=== PATIENT | female | born 1940 | race Caucasian/White ===

== ENCOUNTER 2016-11-18 00:05 | Inpatient (IN) ==
--- NOTE | 2016-11-18 00:23 | Emergency Department Note ---
Disposition Clinical Impression: Atrial fibrillation with RVR Disposition: Admitted As Inpatient Condition: Good Time of Disposition: 04:32 General Adult HPI - General Chief complaint: ED Chest Pain Stated complaint: CP, AFIB RVR Time Seen by Provider: 11/18/16 00:14 Source: patient, EMS Limitations: no limitations Nursing Notes Reviewed: Yes Vital Signs Reviewed: Yes - History of Present Illness HPI Narrative: Female patient states she had jaw pain and noticed her heart was out of rhythm around 11:00 tonight. This is happened her one other time. She denies chest pain at this time. States she did have a short episode of this when she noticed her heart was out of rhythm. She states this happened in September. Pain Scale: 0 - Related Data Home Medications Medication Instructions Recorded Confirmed Albuterol Neb [Proventil Neb] 2.5 mg IH Q4H PRN 08/05/16 10/10/16 Albuterol Sulfate [Proair Hfa] 2 puff IH Q4H PRN 08/05/16 10/10/16 Beclomethasone Diprop 80mcg [QVAR 1 puff IH BID 08/05/16 10/10/16 80 mcg] Benzonatate [Tessalon] 100 mg PO TID PRN 08/05/16 10/10/16 Fluticasone Propionate Nasal 50 mcg NS DAILY PRN 08/05/16 10/10/16 [Flonase] Furosemide [Lasix] 40 mg PO DAILY 08/05/16 10/10/16 Lisinopril [Zestril] 10 mg PO DAILY 08/05/16 10/10/16 Loratadine [Claritin] 10 mg PO DAILY 08/05/16 10/10/16 Metoprolol [Lopressor] 12.5 mg PO BID 08/05/16 10/10/16 Oxygen 2 l NS AD 08/05/16 10/10/16 Potassium Chloride [K-Tab ER] 10 meq PO DAILY 08/05/16 10/10/16 Tiotropium [place] [Spiriva 2 puff IH DAILY 08/05/16 10/10/16 Respimat] Aspirin 81 mg PO DAILY 10/10/16 10/10/16 Warfarin [Coumadin] 2.5 mg PO TU 10/10/16 10/10/16 Warfarin [Coumadin] 5 mg PO SUMOWETHFRSA 10/10/16 10/10/16 Allergies Allergy/AdvReac Type Severity Reaction Status Date / Time Cefaclor [From [facility]] Allergy Difficulty Verified 10/10/16 09:47 Breathing cephalexin Allergy Difficulty Verified 10/10/16 09:47 Breathing doxycycline Allergy Anaphylaxis Verified 10/10/16 09:47 Penicillins Allergy Hives Verified 10/10/16 09:47 Sulfa (Sulfonamide Allergy Anaphylaxis Verified 10/10/16 09:47 Antibiotics) Review of Systems: Patient denies any fevers or chills. She denies any recent illnesses. She denies any shortness of breath or chest pain at this time. She does report feeling that her heart is out of rhythm. She denies any jaw pain at this time but she states she did have a funny feeling in her jaw when this began. She denies any syncope or headaches. Has any abdominal pain. She denies any nausea vomiting or diarrhea. She denies any blood in her stools. She denies any urinary symptoms. She denies any swelling or edema to her extremities. All systems ED: reviewed and negative except as stated. Past Medical History - Past Medical History Medical history: Reports: asthma, atrial fibrillation, CHF, COPD, CVA, hypertension Surgical history: Reports: appendectomy, cholecystectomy, hysterectomy Psychiatric history: Reports: no psych history - Social History Smoking Status: Never smoker Smokeless Tobacco Status: No Alcohol use: Reports: none Drug use: Reports: none Physical Exam - General Limitations: no limitations General appearance: alert, in no apparent distress - Head Head exam: atraumatic, normocephalic, normal inspection - Eye Eye exam: Present: normal appearance, PERRL, EOMI. Absent: scleral icterus - ENT ENT exam: normal exam, normal oropharynx, mucous membranes moist - Neck Neck exam: Present: normal inspection, full ROM, trachea midline. Absent: tenderness, meningismus, lymphadenopathy - Chest Chest inspection: Present: normal inspection, symmetric chest wall rise - Respiratory Respiratory exam: Present: normal lung sounds bilaterally. Absent: respiratory distress - Cardiovascular Cardiovascular exam: Present: regular rate, tachycardia, irregular rhythm, normal heart sounds - Abdominal Exam Abdominal exam: Present: soft, Non-Tender. Absent: tenderness, distention, guarding, rebound, rigidity - Extremities Exam Extremities exam: Present: normal inspection, full ROM, normal capillary refill. Absent: tenderness, pedal edema - Back Exam Back exam: Present: normal inspection, full ROM. Absent: tenderness - Neurological Exam Neurological exam: Present: alert, oriented X3 - Psychiatric Psychiatric exam: Present: normal affect, normal mood - Skin Skin exam: Present: warm, dry, intact, normal color Course Course Narrative: Female patient states that tonight at 11:00 she noticed that she got a funny feeling in her jaw and that her heart was racing. She states this happened one other time in September. When she was in atrial fibrillation. She states that she had a cardiac catheter and echo at that time. There were no stents placed. She did find out that she had a mitral valve prolapse and that was the reason she was going into atrial fibrillation. She is on Coumadin for anticoagulation at this time. She has been rate controlled with Toprol at home. She states she did have an episode of chest pain while she was at home but she does not have this anymore. She denies any shortness of breath. She denies any nausea vomiting or diarrhea. We will rate control her while here. She will be discharged. - Reevaluation(s) Reevaluation #1: Patient received 50 mg of IV Cardizem push. This did not control patients A. fib with RVR. Patient was then placed on a Cardizem drip. Patient is on 5 mg per hour Cardizem. She is maintaining a heart rate 110s. She has had 2 episodes where she became hypotensive in the 70s systolic. We will admit patient to do uncontrolled A. fib. I discussed this with the patient she is agreeable. Time: 03:00 - Consultations Consultation #1: Dr Pacheco addmitted Pt in stable condition. Time: 03:13 Vital Signs Temperature 97.6 F 11/18/16 00:06 Pulse Rate 122 11/18/16 00:06 Respiratory Rate 18 11/18/16 00:06 Blood Pressure 133/95 11/18/16 00:06 O2 Sat by Pulse Oximetry 91 L 11/18/16 00:06 Temperature 97.6 F 11/18/16 00:06 Pulse Rate 91 11/18/16 03:20 Respiratory Rate 18 11/18/16 03:58 Blood Pressure 103/79 11/18/16 03:58 O2 Sat by Pulse Oximetry 95 11/18/16 03:20 Oxygen Delivery Oxygen Delivery Nasal Cannula Medical Decision Making - Lab Data Lab results reviewed: Yes I reviewed the patient's lab results. Result diagrams: 11/18/16 00:34 11/18/16 00:34 Lab Results 11/18/16 11/18/16 11/18/16 Range/Units 00:34 00:34 00:34 WBC 6.9 (4.3-11.1) K/mcL RBC 4.31 (3.82-4.97) M/mcL Hgb 13.6 (11.5-15.4) g/dL Hct 41.7 (35.3-44.9) % MCV 96.8 (83.0-100.0) fL MCH 31.6 (28.0-33.3) pg MCHC 32.6 (31.6-35.5) g/dL RDW 13.1 (11.5-14.5) % Plt Count 227 (140-400) K/mcL MPV 11.2 (9.4-12.4) fL Immature Gran % 0.6 (0-4) % Seg Neutrophils % 63.1 % Lymphocytes % 24.9 % Monocytes % 8.2 % Eosinophils % 2.6 % Basophils % 0.6 % Neutrophils # 4.3 (1.6-8.9) K/mcL Lymphocytes # 1.7 (0.6-4.6) K/mcL Monocytes # 0.6 (0.0-1.3) K/mcL Eosinophils # 0.2 (0.0-0.6) K/mcL Basophils # 0.0 (0.0-0.2) K/mcL Sodium 143 (136-145) mEq/L Potassium 4.1 (3.5-4.5) mEq/L Chloride 106 (98-109) mEq/L Carbon Dioxide 26 (19-29) mEq/L BUN 26 H (7-20) mg/dL Creatinine 0.98 (0.57-1.11) mg/dL Est GFR ( Amer) > 60 (> 60) Est GFR (Non-Af Amer) 55 L (> 60) BUN/Creatinine Ratio 27 H (6-26) Glucose 98 (70-99) mg/dL Calculated Osmolality 301 H (280-300) Calcium 9.6 (8.6-10.8) mg/dL Troponin I 0.01 (0-0.03) ng/mL - EKG Data EKG #1 EKG attestation: Yes I reviewed and interpreted this EKG. EKG results narrative: Atrial fib with RVR at a rate of 123. Serous respirations 93. QT is 304. QTC is 377. Previous EKG dated 08/06/2016 showed patient in a sinus rhythm with a first-degree AV block. There are no signs of acute ischemia and her EKG today or the one dated in 2016 Critical Care Time Critical Care Time: Yes Total Critical Care Time: 45 Attestation: Critical care performed: Time is exclusive of separately billable procedures. Time includes: direct patient care, patient reassessment, coordination of patient care, interpretation of data (laboratory data, radiology data, and respiratory data), review of patient's medical records, medical consultation and documentation of patient care. Procedures included in critical care time: Procedures excluded from critical care time: Attestation Statement - Attestation Attestation: I, Sean Mendez MD, personally performed a history and physical exam of the patient and discussed their management with the resident. I reviewed the resident's note and agree with the documented findings, medical decision making , and plan of care. 76-year-old female presents to the emergency department with a complaint of palpitations which started about one hour prior to arrival. Patient has a history of atrial fibrillation and is on Coumadin. She states that she did have some tightness in her throat and neck which she gets when she has these episodes. No actual chest pain. Some mild shortness of breath. On examination patient is a well-developed well-nourished well-appearing elderly female in no acute distress. She is alert and oriented 3. There is no cyanosis or diaphoresis. Breath sounds are clear and equal bilaterally. Heart is tachycardic and irregularly irregular. Abdomen soft and nontender with normal bowel sounds. EKG shows atrial fibrillation with RVR. Labs reviewed. Patient received IV Cardizem. Throughout her stay she would intermittently go into a normal sinus rhythm for just a few seconds and then back into atrial fibrillation. After the Cardizem she continued to go in and out of atrial fibrillation with a mild tachycardia in the 100-120 range. She was started on a Cardizem infusion. The hospitalist, Dr. Pacheco, was consulted and accepted admission of the patient.
[2016-11-18 01:04] LABS: BUN/Creatinine Ratio 27 (6-26); Blood Urea Nitrogen 26 mg/dL (7-20); Calcium 9.6 mg/dL (8.6-10.8); Carbon Dioxide 26 mEq/L (19-29); Chloride 106 mEq/L (98-109); Glucose 98 mg/dL (70-99); Osmolality,Calculated 301 (280-300); Potassium 4.1 mEq/L (3.5-4.5); Sodium 143 mEq/L (136-145); eGFR For African Americans > 60 (> 60); eGFR For Non-African Americans 55 (> 60)
[2016-11-18] MEDS ORDERED: 0.9 % Sodium Chloride 1,000 ML IVC ONE (01:20)
[2016-11-18] MEDS ORDERED: 0.9 % Sodium Chloride 1,000 ML ONE (01:21)
[2016-11-18 03:20] LABS: Basophils % 0.6 %; Eosinophils # 0.2 K/mcL (0.0-0.6); Eosinophils % 2.6 %; Hematocrit 41.7 % (35.3-44.9); Hemoglobin 13.6 g/dL (11.5-15.4); Immature Granulocytes % 0.6 % (0-4); Lymphocytes # 1.7 K/mcL (0.6-4.6); Lymphocytes % 24.9 %; Mean Corpuscular HGB Conc 32.6 g/dL (31.6-35.5); Mean Corpuscular Hemoglobin 31.6 pg (28.0-33.3); Mean Corpuscular Volume 96.8 fL (83.0-100.0); Mean Platelet Volume 11.2 fL (9.4-12.4); Monocytes # 0.6 K/mcL (0.0-1.3); Monocytes % 8.2 %; Neutrophils # 4.3 K/mcL (1.6-8.9); Platelet Count 227 K/mcL (140-400); Red Blood Count 4.31 M/mcL (3.82-4.97); Red Cell Distribution Width 13.1 % (11.5-14.5); Segmented Neutrophils % 63.1 %
[2016-11-18] MEDS ORDERED: Benzonatate 100 MG CAPSULE PO PRN (05:14)
[2016-11-18] MEDS ORDERED: Naloxone 0.4 MG/ML INJ IVP PRN (05:18)
[2016-11-18] MEDS ORDERED: Ondansetron 4 MG/2 ML VIAL IVP PRN (05:18)
[2016-11-18] MEDS ORDERED: Ondansetron ODT 4 MG TAB.RAPDIS SL PRN (05:18)
--- NOTE | 2016-11-18 05:26 | Internal Med History&Physical ---
Date of Encounter: 11/18/16 Time of Encounter: 04:30 Internal Medicine - H&P: HPI Chief complaint: not feeling well, jaw pain, tight chest, at 11:00pm yesterday, Admitted From: Emergency Dept Plans for Post Hospital Care: Home History of present illness: Ms. Lui is a 76 year old female with history of paroxysmal atrial fibrillation of Metoprolol and Coumadin, mitral valve stenosis with marked dilated left atrium presents with "not feeling well", chest tightness and chest tightness at about 11:00pm yesterday. She reports she felt the same way when she was diagnosed of atrial fibrillation in April 2016. Hower at that time she also felt meck and shoulder garcia. She had the inclination she was back in atrial fibrillation. She was only evaluated by her market research executive, Dr Grant yesterday. She had 2D ECHO, nuclear stress testing and 2D ECHO within the past 3 months. She is on anticoagulation. She reports she has not been informed of the need for surgery yet, though her market research executive mentioned it may progress to that point. No fevers or chills or rigors. No recent illnesses. No shortness of breath or chest pain. No fall/syncope, no headaches or blurry vision, no abdominal pain, no hematemesis, no melena, no hematochezia, no gross hematuria, no bleeding from any surface, no unsual bruises. Her lower extremities swelling intermittently. They are chronically sensitive to touch. She received Cardizem bolus and infusion in the ED, SHE WAS ON dILTIAZEM DRIP AT 5MG/HR AT THE TIME OF MY EXAMINATION. She is FULL CODE as per discussion. She nominates her of 51 years , Mr Lui, as her NOK/POA. Medical history: Reports: asthma, atrial fibrillation, CHF, COPD, CVA, hypertension Surgical history: Reports: appendectomy, cholecystectomy, hysterectomy Psychiatric history: Reports: no psych history Smoking Status: Never smoker Smokeless Tobacco Status: No Alcohol use: Reports: none Drug use: Reports: none ROS: A 10-point ROS was performed, positives and negatives are detailed in HPI. sYSTEM-SYMPTOM NOT MENTIONED IS ASSUMED NEGATIVE unless otherwise stated. Vital Signs Temperature 97.6 F 11/18/16 00:06 Pulse Rate 122 11/18/16 00:06 Respiratory Rate 18 11/18/16 00:06 Blood Pressure 133/95 01/07/17 00:06 O2 Sat by Pulse Oximetry 91 L 11/18/16 00:06 Temperature 97.6 F 11/18/16 00:06 Pulse Rate 91 11/18/16 03:20 Respiratory Rate 18 11/18/16 03:58 Blood Pressure 103/79 11/18/16 03:58 O2 Sat by Pulse Oximetry 95 11/18/16 03:20 Not pale, anicteric, afebrile, acyanotic, not in distress Moist mucosa, not pale, anicteric, afebrile, acyanotic. Trachea is central, No cervical or jugular lymphadenopathy. Chest: Scattered expiratory wheezing, right basilar inspiratory crackles posteriorly, associated with expiratory wheezing in the same zone.. Heart: RRR, HS1/2, diastolic mitral murmur Abdomen: obese, non-distended, soft, non-tender,no masses. SCRIPT SUPERVISOR: AAO X 3, no gross focal neurological deficits. Skin: No active skin lesion Extremities: Trace pedal edema, normal pedal pulses, no calf tenderness. Sensitive skin in the lower extremities Lab Results 11/18/16 11/18/16 11/18/16 Range/Units 00:34 00:34 00:34 WBC 6.9 (4.3-11.1) K/mcL RBC 4.31 (3.82-4.97) M/mcL Hgb 13.6 (11.5-15.4) g/dL Hct 41.7 (35.3-44.9) % MCV 96.8 (83.0-100.0) fL MCH 31.6 (28.0-33.3) pg MCHC 32.6 (31.6-35.5) g/dL RDW 13.1 (11.5-14.5) % Plt Count 227 (140-400) K/mcL MPV 11.2 (9.4-12.4) fL Immature Gran % 0.6 (0-4) % Seg Neutrophils % 63.1 % Lymphocytes % 24.9 % Monocytes % 8.2 % Eosinophils % 2.6 % Basophils % 0.6 % Neutrophils # 4.3 (1.6-8.9) K/mcL Lymphocytes # 1.7 (0.6-4.6) K/mcL Monocytes # 0.6 (0.0-1.3) K/mcL Eosinophils # 0.2 (0.0-0.6) K/mcL Basophils # 0.0 (0.0-0.2) K/mcL Sodium 143 (136-145) mEq/L Potassium 4.1 (3.5-4.5) mEq/L Chloride 106 (98-109) mEq/L Carbon Dioxide 26 (19-29) mEq/L BUN 26 H (7-20) mg/dL Creatinine 0.98 (0.57-1.11) mg/dL Est GFR ( Amer) > 60 (> 60) Est GFR (Non-Af Amer) 55 L (> 60) BUN/Creatinine Ratio 27 H (6-26) Glucose 98 (70-99) mg/dL Calculated Osmolality 301 H (280-300) Calcium 9.6 (8.6-10.8) mg/dL Troponin I 0.01 (0-0.03) ng/mL EKG1: Atrial fib with RVR @ 123. EKG2 (5:10 HRS): NSR with first degree heart block, no signs of acute ischemia ( similar to EKG dated 08/06/2016) showed patient in a sinus rhythm with a first- degree AV block. IMP Paroxysmal atrial fibrillation, likely related to mitral valve disease., she now back in sinus rhythm. Moderate mitral stenosis with marked dilated left atrium Chronic morbidities Mitral stenosis HTN COPD/ ASTHMA Diastolic CHF (last LVEF= 60-65%), 08/2016. PLAN Admit to observation Wean off cardizem drip Increase dose of Metoprolol to 25 mg po BID. nO INDICATION FOR FURTHER CARDIAC testing, she just had 2D ECHO, nuclear stress test and LHC in the past 2-3 months. wILL FOLLOW UP WITH HER DRY END TESTER (Dr Grant) in the outpatient setting. The patient will eventually need mitral valvuloplasty, as she is at risk of decompensation. Continue other medications of chronic morbidities including Coumadin. I envisage a discharge later today. I discussed my fndings and a ssessment with the patient, she verbalized understanding and is agreeable to admission. She is admitted for rhythm and rate control. Past Med Surg Social Fam HX - Past Medical History Medical history: asthma, atrial fibrillation, CHF, COPD, CVA, hypertension Psychiatric history: no psych history - Past Surgical History Surgical History: appendectomy, cholecystectomy, hysterectomy - Social History Smoking Status: Never smoker Smokeless Tobacco Status: No Alcohol use: none Drug use: none - Family History Father Living Status: Hx Family Cardiac Disorders: Yes Mother Hx Family Endocrine Disorder: Yes Internal Medicine - H&P: Meds Albuterol Neb [Proventil Neb] 2.5 mg IH Q4H PRN 08/05/16 [History] Albuterol Sulfate [Proair Hfa] 2 puff IH Q4H PRN 08/05/16 [History] Beclomethasone Diprop 80mcg [QVAR 80 mcg] 1 puff IH BID 08/05/16 [History] Benzonatate [Tessalon] 100 mg PO TID PRN 08/05/16 [History] Fluticasone Propionate Nasal [Flonase] 50 mcg NS PRN PRN 08/05/16 [History] Furosemide [Lasix] 40 mg PO DAILY 08/05/16 [History] Lisinopril [Zestril] 10 mg PO DAILY 08/05/16 [History] Loratadine [Claritin] 10 mg PO DAILY 08/05/16 [History] Metoprolol [Lopressor] 12.5 mg PO BID 08/05/16 [History] Oxygen 2 l NS AD 08/05/16 [History] Potassium Chloride [K-Tab ER] 10 meq PO DAILY 08/05/16 [History] Tiotropium [place] [Spiriva Respimat] 2 puff IH DAILY 08/05/16 [History] Aspirin 81 mg PO DAILY 10/10/16 [History] Warfarin [Coumadin] 2.5 mg PO TU 10/10/16 [History] Warfarin [Coumadin] 5 mg PO HS 10/10/16 [History] Allergies Cefaclor [From Ceclor] Allergy (Verified 10/10/16 09:47) Difficulty Breathing cephalexin Allergy (Verified 10/10/16 09:47) Difficulty Breathing doxycycline Allergy (Verified 10/10/16 09:47) Anaphylaxis Penicillins Allergy (Verified 10/10/16 09:47) Hives Sulfa (Sulfonamide Antibiotics) Allergy (Verified 10/10/16 09:47) Anaphylaxis All Systems PM: A 10-system review of systems was performed and is negative for pertinent findings except as documented above in the HPI. - Constitutional Vitals: Temp Pulse Resp BP Pulse Ox 97.6 F 91 18 103/79 95 11/18/16 00:06 11/18/16 03:20 11/18/16 03:58 11/18/16 03:58 11/18/16 03:20 Internal Med - H&P Results - Labs CBC & Chem 7: 11/18/16 00:34 11/18/16 00:34 - VTE Reasons for not Prescribing Prophylaxis: Not indicated-Anticoagulated or INR therapeutic
[2016-11-18 06:59] LABS: INR 1.9; Prothrombin Time 20.6 Seconds (9.4-12.1)
[2016-11-18] MEDS: Ipratropium/Albuterol Neb 3 ML IH SCH ×4 (07:28→19:40)
[2016-11-18] MEDS: Beclomethasone 80mcg MDI IH SCH ×2 (07:37→19:39)
[2016-11-18] MEDS: Albuterol 2.5 MG/3 ML NEBULIZER IH SCH ×4 (07:37→19:39)
[2016-11-18] MEDS: Tiotropium 18 MCG inhalation IH SCH (07:38)
--- NOTE | 2016-11-18 07:57 | Internal Med Progress Note ---
Date of Encounter: 11/19/16 Time of Encounter: 07:55 - Assessment and plan (1) Atrial fibrillation with RVR Current Visit: Yes Status: Acute Assessment and plan: atrial fibrillation with rapid ventricular rate: -We will continue Cardizem drip for now. -we will taper Cardizem drip over the next 6-8 hours. -We will increase by mouth metoprolol 25 mg twice a day. -Close observation (2) Chest pain Current Visit: No Status: Acute Assessment and plan: noted that first Troponin is negative will monitor troponin Qualifiers: Chest pain type: chest pain on breathing Qualified Code(s): R07.1 - Chest pain on breathing (3) Hypertension Current Visit: No Status: Chronic Assessment and plan: stable blood pressure We will continue same medication Qualifiers: Hypertension type: essential hypertension Qualified Code(s): I10 - Essential (primary) hypertension (4) Mitral stenosis Current Visit: No Status: Chronic Assessment and plan: known to have a mitral stenosis. 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 iNR 1.9 will continue same medication Medical decision making:Patient is at risk for cardiac perfusion related injuries in spite of being on the blood thinners. - Subjective Interval history: patient seen and examined. Chart reviewed.Case discussed with the appropriate freight team associate were actively involved in the patient care. patient still complains of palpitations. She denies chest pain, nausea, vomiting or abdominal pain - Constitutional Vitals: Temp Pulse Resp BP Pulse Ox 98 F 67 16 96/62 98 11/18/16 07:19 11/18/16 07:19 11/18/16 07:43 11/18/16 07:19 11/18/16 07:43 General appearance: Present: A&O X 3, pleasant, no acute distress, answers questions appropriately - Head Head exam: Present: atraumatic, normocephalic - Eye Eye exam: Present: PERRL, conjuntiva pink, sclera anicteric Pupils: Present: PERRL - Neck Neck exam general surgery: Present: supple, trachea midline. Absent: lymphadenopathy - Respiratory Respiratory exam: Present: CTAB. Absent: accessory muscle use, rales, rhonchi, wheezes - Cardiovascular Cardiovascular exam: Present: RRR, +S1, +S2. Absent: diastolic murmur, gallop, rubs, systolic murmur Additional comments: she has a mid diastolic murmur witha presystolic accentuation - GI/Abdominal GI/Abdominal exam: Present: normal bowel sounds, soft, no peritoneal signs. Absent: distended, tenderness - Extremities Exam Extremities exam: Present: warm, radial pulses palpable and symetrical. Absent : calf tenderness, cyanotic, pedal edema - Neurological Exam Neurological exam: Present: CN II-XII intact, oriented X3, no focal deficits. Absent: pronater drift, facial droop, speech deficit - Skin Skin exam: Present: dry, intact Internal Medicine: Result - Labs CBC & Chem 7: 11/19/16 04:51 11/19/16 04:51 Labs: reviewed - ABG Interpretation ABG results: PT/INR, D-dimer PT 20.6 Seconds (9.4-12.1) H 11/18/16 06:00 - VTE Reasons for not Prescribing Prophylaxis: Not indicated-Anticoagulated or INR therapeutic Consult Discharge Plan - Plan Referrals: Ginny Fischer FACILITY MAINTENANCE SUPERVISOR [Primary Care Provider] -
[2016-11-18] MEDS ORDERED: Aspirin 81 MG TAB.CHEW PO SCH (09:00)
[2016-11-18] MEDS ORDERED: Metoprolol XL (24 HR) Succ 25 MG TAB.ER.24H PO SCH (09:00)
[2016-11-18] MEDS ORDERED: Fluticasone Propionate Nasal 50 MCG/SPRAY BOTTLE NS SCH (09:00)
[2016-11-18] MEDS: Loratadine 10 MG TABLET PO SCH (10:56)
[2016-11-18] MEDS: Furosemide 40 MG TABLET PO SCH (10:56)
[2016-11-18] MEDS: *HR* Warfarin 5 MG TABLET PO SCH (18:07)
[2016-11-18] MEDS: Aspirin 81 MG TAB.CHEW PO SCH (21:23)
[2016-11-19] MEDS: Albuterol 2.5 MG/3 ML NEBULIZER IH SCH ×7 (00:02→23:01)
[2016-11-19] MEDS: Ipratropium/Albuterol Neb 3 ML IH SCH ×4 (04:19→19:46)
[2016-11-19 05:31] LABS: Basophils % 0.7 %; Eosinophils # 0.1 K/mcL (0.0-0.6); Eosinophils % 2.3 %; Hematocrit 35.2 % (35.3-44.9); Hemoglobin 11.3 g/dL (11.5-15.4); Immature Granulocytes % 0.5 % (0-4); Lymphocytes # 1.4 K/mcL (0.6-4.6); Lymphocytes % 23.8 %; Mean Corpuscular HGB Conc 32.1 g/dL (31.6-35.5); Mean Corpuscular Hemoglobin 31.4 pg (28.0-33.3); Mean Corpuscular Volume 97.8 fL (83.0-100.0); Mean Platelet Volume 10.7 fL (9.4-12.4); Monocytes # 0.5 K/mcL (0.0-1.3); Monocytes % 8.8 %; Neutrophils # 3.8 K/mcL (1.6-8.9); Platelet Count 196 K/mcL (140-400); Red Cell Distribution Width 13.6 % (11.5-14.5); Segmented Neutrophils % 63.9 %
[2016-11-19 05:37] LABS: INR 1.7; Prothrombin Time 18.8 Seconds (9.4-12.1)
[2016-11-19 05:44] LABS: Alanine Aminotransferase 12 Units/L (0-55); Albumin 2.8 g/dL (3.5-5.0); Albumin/Globulin Ratio 0.9 (1.1-2.2); Alkaline Phosphatase 71 Units/L (38-126); Aspartate Amino Transferase 12 Units/L (5-34); BUN/Creatinine Ratio 27 (6-26); Bilirubin,Total 0.5 mg/dL (0.2-1.2); Blood Urea Nitrogen 19 mg/dL (7-20); Calcium 8.9 mg/dL (8.6-10.8); Carbon Dioxide 27 mEq/L (19-29); Chloride 107 mEq/L (98-109); Globulin 3.1 g/dL (2.4-3.5); Glucose 89 mg/dL (70-99); Osmolality,Calculated 296 (280-300); Potassium 3.9 mEq/L (3.5-4.5); Sodium 142 mEq/L (136-145); Total Protein 5.9 g/dL (6.0-8.3); eGFR For African Americans > 60 (> 60); eGFR For Non-African Americans > 60 (> 60)
[2016-11-19] MEDS: Tiotropium 18 MCG inhalation IH SCH (07:48)
[2016-11-19] MEDS: Beclomethasone 80mcg MDI IH SCH ×2 (07:48→19:45)
[2016-11-19] MEDS: Loratadine 10 MG TABLET PO SCH (08:04)
[2016-11-19] MEDS: Furosemide 40 MG TABLET PO SCH (08:04)
--- NOTE | 2016-11-19 12:19 | Internal Med Progress Note ---
Date of Encounter: 11/19/16 Time of Encounter: 12:15 - Assessment and plan (1) Atrial fibrillation with RVR Current Visit: Yes Status: Acute Assessment and plan: atrial fibrillation with rapid ventricular rate: -We will continue Cardizem drip for now. -we will taper Cardizem drip over the next 6-8 hours. -We will increase by mouth metoprolol 25 mg twice a day. -Close observation 11/19/2016 -Noted that her heart rate was below 40 yesterday. -Patient was asymptomatic. -Patient denies any chest pain. -Discussed with the patient at length. Patient does not feel comfortable to increase her metoprolol dose. -We will continue metoprolol 12.5 mg twice a day. -We will observe her 24 hours. If her heart rate remains stable that is between 60 and 80 we will send her home with her home medication but if her heart rate gets above 100 then we will restart her 25 mg twice a day. -This plan was discussed with the patient and she verbalized understanding (2) Chest pain Current Visit: No Status: Acute Assessment and plan: noted that first Troponin is negative will monitor troponin 11/19/2016. -Troponin drawn 2, 12 hours apart: Negative. Qualifiers: Chest pain type: chest pain on breathing Qualified Code(s): R07.1 - Chest pain on breathing (3) Hypertension Current Visit: No Status: Chronic Assessment and plan: stable blood pressure We will continue same medication Qualifiers: Hypertension type: essential hypertension Qualified Code(s): I10 - Essential (primary) hypertension (4) Mitral stenosis Current Visit: No Status: Chronic Assessment and plan: known to have a mitral stenosis. 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 iNR 1.9 will continue same medication Medical decision making:Patient is at risk for cardiac perfusion related injuries in spite of being on the blood thinners. - Subjective Interval history: patient seen and examined. Chart reviewed.Case discussed with the appropriate steam distribution supervisor were actively involved in the patient care. patient still complains of palpitations. She denies chest pain, nausea, vomiting or abdominal pain 11/19/2016 Patient seen and examined. Chart reviewed. Patient still has occasional palpitations. Noted that last night her heart rate went in 40s. Patient is not keen to take the increased dose of metoprolol. - Constitutional Vitals: Temp Pulse Resp BP Pulse Ox 98.2 F 69 16 118/80 96 11/19/16 07:00 11/19/16 11:00 11/19/16 11:00 11/19/16 11:00 11/19/16 11:00 General appearance: Present: A&O X 3, pleasant, no acute distress, answers questions appropriately - Head Head exam: Present: atraumatic, normocephalic - Eye Eye exam: Present: PERRL, conjuntiva pink, sclera anicteric Pupils: Present: PERRL - Neck Neck exam general surgery: Present: supple, trachea midline. Absent: lymphadenopathy - Respiratory Respiratory exam: Present: CTAB. Absent: accessory muscle use, rales, rhonchi, wheezes - Cardiovascular Cardiovascular exam: Present: RRR, +S1, +S2. Absent: diastolic murmur, gallop, rubs, systolic murmur - GI/Abdominal GI/Abdominal exam: Present: normal bowel sounds, soft, no peritoneal signs. Absent: distended, tenderness - Extremities Exam Extremities exam: Present: warm, radial pulses palpable and symetrical. Absent : calf tenderness, cyanotic, pedal edema - Neurological Exam Neurological exam: Present: CN II-XII intact, oriented X3, no focal deficits. Absent: pronater drift, facial droop, speech deficit - Skin Skin exam: Present: dry, intact Internal Medicine: Result - Labs CBC & Chem 7: 11/19/16 04:51 11/19/16 04:51 Labs: Short CBC 11/19/16 Range/Units 04:51 WBC 6.0 (4.3-11.1) K/mcL Hgb 11.3 L D (11.5-15.4) g/dL Hct 35.2 L (35.3-44.9) % Plt Count 196 (140-400) K/mcL Neutrophils # 3.8 (1.6-8.9) K/mcL BMP 11/19/16 04:51 Sodium 142 Potassium 3.9 Chloride 107 Carbon Dioxide 27 BUN 19 Creatinine 0.71 Glucose 89 Calcium 8.9 Liver Function 11/19/16 Range/Units 04:51 Total Bilirubin 0.5 (0.2-1.2) mg/dL AST 12 (5-34) Units/L ALT 12 (0-55) Units/L Alkaline Phosphatase 71 (38-126) Units/L Albumin 2.8 L (3.5-5.0) g/dL - ABG Interpretation ABG results: PT/INR, D-dimer PT 18.8 Seconds (9.4-12.1) H 11/19/16 04:51 - VTE Reasons for not Prescribing Prophylaxis: Not indicated-Anticoagulated or INR therapeutic Consult Discharge Plan - Plan Referrals: Ginny Fischer, [facility] [Primary Care Provider] -
[2016-11-19] MEDS: *HR* Warfarin 5 MG TABLET PO SCH (18:45)
[2016-11-19] MEDS: Aspirin 81 MG TAB.CHEW PO SCH (20:54)
[2016-11-20] MEDS: Albuterol 2.5 MG/3 ML NEBULIZER IH SCH ×6 (04:00→23:27)
[2016-11-20] MEDS: Ipratropium/Albuterol Neb 3 ML IH SCH ×2 (04:00→08:42)
[2016-11-20 05:12] LABS: Basophils % 0.6 %; Eosinophils # 0.2 K/mcL (0.0-0.6); Eosinophils % 2.9 %; Hematocrit 35.7 % (35.3-44.9); Hemoglobin 11.5 g/dL (11.5-15.4); Immature Granulocytes % 0.5 % (0-4); Immature Platelets 5.4 % (1.1-6.1); Lymphocytes # 1.6 K/mcL (0.6-4.6); Lymphocytes % 24.7 %; Mean Corpuscular HGB Conc 32.2 g/dL (31.6-35.5); Mean Corpuscular Hemoglobin 31.6 pg (28.0-33.3); Mean Corpuscular Volume 98.1 fL (83.0-100.0); Mean Platelet Volume 10.9 fL (9.4-12.4); Monocytes # 0.6 K/mcL (0.0-1.3); Monocytes % 9.4 %; Neutrophils # 4.1 K/mcL (1.6-8.9); Platelet Count 216 K/mcL (140-400); Red Blood Count 3.64 M/mcL (3.82-4.97); Red Cell Distribution Width 13.4 % (11.5-14.5); Segmented Neutrophils % 61.9 %
[2016-11-20 05:18] LABS: INR 1.9; Prothrombin Time 20.4 Seconds (9.4-12.1)
[2016-11-20 05:31] LABS: Alanine Aminotransferase 10 Units/L (0-55); Albumin 2.9 g/dL (3.5-5.0); Albumin/Globulin Ratio 0.9 (1.1-2.2); Alkaline Phosphatase 72 Units/L (38-126); Aspartate Amino Transferase 12 Units/L (5-34); BUN/Creatinine Ratio 35 (6-26); Bilirubin,Total 0.5 mg/dL (0.2-1.2); Blood Urea Nitrogen 28 mg/dL (7-20); Calcium 8.9 mg/dL (8.6-10.8); Carbon Dioxide 27 mEq/L (19-29); Chloride 106 mEq/L (98-109); Globulin 3.1 g/dL (2.4-3.5); Glucose 87 mg/dL (70-99); Osmolality,Calculated 295 (280-300); Potassium 4.2 mEq/L (3.5-4.5); Sodium 140 mEq/L (136-145); eGFR For African Americans > 60 (> 60); eGFR For Non-African Americans > 60 (> 60)
[2016-11-20] MEDS: Beclomethasone 80mcg MDI IH SCH ×2 (08:40→19:42)
[2016-11-20] MEDS: Tiotropium 18 MCG inhalation IH SCH (08:40)
[2016-11-20] MEDS: Loratadine 10 MG TABLET PO SCH (09:29)
[2016-11-20] MEDS: Furosemide 40 MG TABLET PO SCH (09:29)
--- NOTE | 2016-11-20 12:17 | Electrocardiograph Report ---
[facility] Test Date: 2016-11-18 Pat Name: Lorrie Lui Department: 102 Room: 2NE19 Gender: F Lead Pharmacy Technician: Rishi : 1940 Requested By: Aayush Kessler Order Number: [id number] Reading MD: Juan Manuel Lauren DO Measurements Intervals [place] Rate: 123 P: [place]: 0 QRS: 21 QRSD: 93 T: 26 QT: 304 QTc: 377 Interpretive Statements Atrial fibrillation/flutter with RVR Electronically Signed On 11-20-16 12:16:37 EST by Juan Manuel Lauren DO
--- NOTE | 2016-11-20 12:18 | Electrocardiograph Report ---
[facility] Test Date: 2016-11-18 Pat Name: Lorrie Lui Department: 111 Room: 2NE19 Gender: F Advertising Operations Coordinator: BOOM : 1940 Requested By: Marcella Zurita Order Number: [id number] Reading MD: Juan Manuel Lauren DO Measurements Intervals [place] Rate: 66 P: 12 [place]: 230 QRS: 0 QRSD: 98 T: 3 QT: 416 QTc: 429 Interpretive Statements Sinus rhythm with a first degree AV block PVC Electronically Signed On 11-20-16 12:16:56 EST by Juan Manuel Lauren DO
--- NOTE | 2016-11-20 13:42 | Internal Med Progress Note ---
<NavasNatalio - Last Filed: 11/20/16 14:45> Date of Encounter: 11/20/16 Time of Encounter: 13:40 - Assessment and plan (1) Atrial fibrillation with RVR Current Visit: Yes Status: Acute Assessment and plan: Currently rate controlled with Lopressor 25 BID, which is double her home dose Blood pressures have been borderline low, but at a safe level so far Will monitor for one more day and likely DC tomorrow morning on higher dose of Metoprolol if HR remains controlled (2) Chest pain Current Visit: No Status: Acute Assessment and plan: Chest pain has resolved and troponins have been negative x2 Qualifiers: Chest pain type: chest pain on breathing Qualified Code(s): R07.1 - Chest pain on breathing (3) Hypertension Current Visit: No Status: Chronic Assessment and plan: Blood pressures controlled this morning Continue with Lopressor at the higher dose if BP may tolerate Qualifiers: Hypertension type: essential hypertension Qualified Code(s): I10 - Essential (primary) hypertension (4) Mitral stenosis Current Visit: No Status: Chronic Assessment and plan: Echocardiogram done last August showed moderate mitral stenosis with EF 60-65% Continue with beta radha and Lasix Qualifiers: Cardiac valve disease etiology: rheumatic Qualified Code(s): I05.0 - Rheumatic mitral stenosis (5) DVT prophylaxis Current Visit: No Status: Acute Assessment and plan: Will continue Coumadin, INR at 1.9 this morning - Subjective Interval history: Pt seen and examined. She states she is doing well this morning and has no complaints of shortness of breath while on RA. She has no issues with pain except in her legs. No problems with diet and denies nausea, vomiting, diarrhea. She does complain of straining during a bowel movement and would like a stool softener when she gets home. - Constitutional Vitals: Temp Pulse Resp BP Pulse Ox 97.7 F 71 16 96/59 92 L 11/20/16 12:16 11/20/16 12:16 11/20/16 12:16 11/20/16 12:16 11/20/16 12:16 General appearance: Present: cooperative, pleasant, no acute distress, answers questions appropriately - Head Head exam: Present: atraumatic, normocephalic - Eye Eye exam: Present: PERRL, conjuntiva pink, sclera anicteric - Neck Neck exam general surgery: Present: supple, trachea midline. Absent: lymphadenopathy - Respiratory Respiratory exam: Present: CTAB. Absent: accessory muscle use, rales, rhonchi, wheezes - Cardiovascular Cardiovascular exam: Present: diastolic murmur, RRR, +S1, +S2. Absent: gallop, rubs, systolic murmur - GI/Abdominal GI/Abdominal exam: Present: normal bowel sounds, soft, no peritoneal signs. Absent: distended, tenderness - Extremities Exam Extremities exam: Present: tenderness, warm, radial pulses palpable and symetrical. Absent: calf tenderness, cyanotic, pedal edema - Neurological Exam Neurological exam: Present: alert, oriented X3, no focal deficits. Absent: facial droop, speech deficit - Skin Skin exam: Present: dry, intact Internal Medicine: Result - Labs CBC & Chem 7: 11/20/16 04:28 11/20/16 04:28 Labs: Short CBC 11/20/16 Range/Units 04:28 WBC 6.6 (4.3-11.1) K/mcL Hgb 11.5 (11.5-15.4) g/dL Hct 35.7 (35.3-44.9) % Plt Count 216 (140-400) K/mcL Neutrophils # 4.1 (1.6-8.9) K/mcL BMP 11/20/16 04:28 Sodium 140 Potassium 4.2 Chloride 106 Carbon Dioxide 27 BUN 28 H Creatinine 0.81 Glucose 87 Calcium 8.9 Liver Function 11/20/16 Range/Units 04:28 Total Bilirubin 0.5 (0.2-1.2) mg/dL AST 12 (5-34) Units/L ALT 10 (0-55) Units/L Alkaline Phosphatase 72 (38-126) Units/L Albumin 2.9 L (3.5-5.0) g/dL - ABG Interpretation ABG results: PT/INR, D-dimer PT 20.4 Seconds (9.4-12.1) H 11/20/16 04:28 - VTE Reasons for not Prescribing Prophylaxis: Not indicated-Anticoagulated or INR therapeutic Consult Discharge Plan - Plan Referrals: Ginny Fischer CNP [Primary Care Provider] - 11/30/16 9:00 am <Aayush Kessler - Last Filed: 11/20/16 18:18> Date of Encounter: 11/20/16 - Assessment and plan (1) Atrial fibrillation with RVR Current Visit: Yes Status: Acute (2) Chest pain Current Visit: No Status: Acute Qualifiers: Chest pain type: chest pain on breathing Qualified Code(s): R07.1 - Chest pain on breathing (3) Hypertension Current Visit: No Status: Chronic Qualifiers: Hypertension type: essential hypertension Qualified Code(s): I10 - Essential (primary) hypertension (4) Mitral stenosis Current Visit: No Status: Chronic Qualifiers: Cardiac valve disease etiology: rheumatic Qualified Code(s): I05.0 - Rheumatic mitral stenosis (5) DVT prophylaxis Current Visit: No Status: Acute - Constitutional Vitals: Temp Pulse Resp BP Pulse Ox 98.2 F 68 16 114/57 94 L 11/20/16 15:45 11/20/16 15:45 11/20/16 16:04 11/20/16 15:45 11/20/16 16:04 Internal Medicine: Result - Labs CBC & Chem 7: 11/20/16 04:28 11/20/16 04:28 Labs: Short CBC 11/20/16 Range/Units 04:28 WBC 6.6 (4.3-11.1) K/mcL Hgb 11.5 (11.5-15.4) g/dL Hct 35.7 (35.3-44.9) % Plt Count 216 (140-400) K/mcL Neutrophils # 4.1 (1.6-8.9) K/mcL BMP 11/20/16 04:28 Sodium 140 Potassium 4.2 Chloride 106 Carbon Dioxide 27 BUN 28 H Creatinine 0.81 Glucose 87 Calcium 8.9 Liver Function 11/20/16 Range/Units 04:28 Total Bilirubin 0.5 (0.2-1.2) mg/dL AST 12 (5-34) Units/L ALT 10 (0-55) Units/L Alkaline Phosphatase 72 (38-126) Units/L Albumin 2.9 L (3.5-5.0) g/dL - ABG Interpretation ABG results: PT/INR, D-dimer PT 20.4 Seconds (9.4-12.1) H 11/20/16 04:28 - Attending Attestation I examined this patient and my medical decision-making was reviewed with the CHEMICAL OPERATOR/PA/Advanced Practice Nurse/Resident Physician. I agree with the documented findings, disposition and treatment plan as described except to the extent set forth below.
[2016-11-20] MEDS ORDERED: Ipratropium/Albuterol Neb 3 ML IH PRN (13:45)
--- NOTE | 2016-11-20 15:01 | Electrocardiograph Report ---
[facility] Test Date: 2016-11-19 Pat Name: RIRI RODRIGUEZ Department: 111 Room: 2NE19 Gender: F Bad Work Gatherer: FERMIN : 1940 Requested By: Aayush Kessler Order Number: [id number] Reading MD: Juan Manuel Lauren DO Measurements Intervals [place] Rate: 87 P: [place]: 0 QRS: 19 QRSD: 100 T: 26 QT: 375 QTc: 420 Interpretive Statements Sinus rhythm with freuqnt PACS Electronically Signed On 11-20-16 13:57:36 EST by Juan Manuel Lauren DO
[2016-11-20] MEDS: *HR* Warfarin 5 MG TABLET PO SCH (18:24)
[2016-11-20] MEDS: Aspirin 81 MG TAB.CHEW PO SCH (20:52)
[2016-11-21] MEDS: Albuterol 2.5 MG/3 ML NEBULIZER IH SCH ×3 (04:16→11:05)
[2016-11-21 05:15] LABS: Basophils % 0.6 %; Eosinophils # 0.2 K/mcL (0.0-0.6); Hemoglobin 11.7 g/dL (11.5-15.4); Immature Granulocytes % 0.3 % (0-4); Lymphocytes # 1.6 K/mcL (0.6-4.6); Mean Corpuscular HGB Conc 32.5 g/dL (31.6-35.5); Mean Corpuscular Hemoglobin 31.7 pg (28.0-33.3); Mean Corpuscular Volume 97.6 fL (83.0-100.0); Mean Platelet Volume 10.6 fL (9.4-12.4); Monocytes # 0.5 K/mcL (0.0-1.3); Monocytes % 7.9 %; Neutrophils # 4.1 K/mcL (1.6-8.9); Platelet Count 203 K/mcL (140-400); Red Blood Count 3.69 M/mcL (3.82-4.97); Red Cell Distribution Width 13.2 % (11.5-14.5); Segmented Neutrophils % 63.2 %
[2016-11-21 05:33] LABS: BUN/Creatinine Ratio 32 (6-26); Blood Urea Nitrogen 24 mg/dL (7-20); Calcium 9.1 mg/dL (8.6-10.8); Carbon Dioxide 25 mEq/L (19-29); Chloride 106 mEq/L (98-109); Glucose 88 mg/dL (70-99); Osmolality,Calculated 295 (280-300); Potassium 4.3 mEq/L (3.5-4.5); Sodium 141 mEq/L (136-145); eGFR For African Americans > 60 (> 60); eGFR For Non-African Americans > 60 (> 60)
[2016-11-21 07:17] VITALS: BP 116/79
[2016-11-21] MEDS: Tiotropium 18 MCG inhalation IH SCH (07:41)
[2016-11-21] MEDS: Beclomethasone 80mcg MDI IH SCH (07:41)
--- NOTE | 2016-11-21 08:28 | Discharge Summary ---
<Natalio Navas - Last Filed: 11/21/16 14:53> Date of Encounter: 11/21/16 Time of Encounter: 08:25 - Discharge Diagnosis (1) Atrial fibrillation with RVR Priority: Primary Status: Acute (2) Chest pain Priority: Secondary Status: Acute Qualifiers: Chest pain type: chest pain on breathing Qualified Code(s): R07.1 - Chest pain on breathing (3) Hypertension Priority: Secondary Status: Chronic Qualifiers: Hypertension type: essential hypertension Qualified Code(s): I10 - Essential (primary) hypertension (4) Mitral stenosis Priority: Secondary Status: Chronic Qualifiers: Cardiac valve disease etiology: rheumatic Qualified Code(s): I05.0 - Rheumatic mitral stenosis - Discharge Medications Prescriptions: Metoprolol [Lopressor] 25 mg PO BID #60 tablet Home Medications: Albuterol Neb [Proventil Neb] 2.5 mg IH Q4H PRN 08/05/16 [History] Albuterol Sulfate [Proair Hfa] 2 puff IH Q4H PRN 08/05/16 [History] Beclomethasone Diprop 80mcg [QVAR 80 mcg] 1 puff IH BID 08/05/16 [History] Benzonatate [Tessalon] 100 mg PO TID PRN 08/05/16 [History] Fluticasone Propionate Nasal [Flonase] 50 mcg NS DAILY PRN 08/05/16 [History] Furosemide [Lasix] 40 mg PO BID PRN 08/05/16 [History] Lisinopril [Zestril] 10 mg PO DAILY 08/05/16 [History] Loratadine [Claritin] 10 mg PO DAILY 08/05/16 [History] Oxygen 2 l NS AD 08/05/16 [History] Potassium Chloride [K-Tab ER] 10 meq PO DAILY 08/05/16 [History] Tiotropium [place] [Spiriva Respimat] 2 puff IH DAILY 08/05/16 [History] Aspirin 81 mg PO DAILY 10/10/16 [History] Warfarin [Coumadin] 5 mg PO QPM 10/10/16 [History] Roflumilast [Daliresp] 500 mcg PO DAILY 11/18/16 [History] Metoprolol [Lopressor] 25 mg PO BID #60 tablet 11/21/16 [Rx] Allergies/Adverse Reactions: Allergies Cefaclor [From Ceclor] Allergy (Verified 10/10/16 09:47) Difficulty Breathing cephalexin Allergy (Verified 10/10/16 09:47) Difficulty Breathing doxycycline Allergy (Verified 10/10/16 09:47) Anaphylaxis Penicillins Allergy (Verified 10/10/16 09:47) Hives Sulfa (Sulfonamide Antibiotics) Allergy (Verified 10/10/16 09:47) Anaphylaxis Procedures/tests Complete & Pending: Procedures Performed prior 72 hours Category Date Time Status ECG 12 lead ECG [ECG] Routine Y 11/19/16 14:43 Completed Date of admission: 11/18/16 07:46 Primary care physician: Ginny Fischer CNP Discharging clinician: Aayush Kessler Anticipated date of discharge: 11/21/16 - Patient Status Disposition: Home, Self-Care Condition: Good Functional capacity at discharge: independent ambulation Overall status at discharge: patient is progressing back to baseline - Discharge Instructions Follow Up With: Ginny Fischer CNP [Primary Care Provider] - 11/30/16 9:00 am Additional Instructions: Please follow up with your PCP as scheduled. - Diet and Activity Activity: wear oxygen at night (and as needed) Diet: low fat, low cholesterol Hospital course: Ms. Lui is a 76 year old female who presented to the emergency department on November 18 for A. fib with RVR. Her heart rate was initially in the 110s and she received a Cardizem push and was placed on a Cardizem drip. She was transitioned off the Cardizem drip over the next 24 hours and her metoprolol was increased to 25 mg twice a day, as she was only taking 12.5 mg twice a day home. She is also on warfarin for chronic anticoagulation at home, and her INR was borderline subtherapeutic. Patient also complained of mild chest pain but she had negative troponins and her chest pain resolved on its own. She is also known to have mitral stenosis with preserved EF on her last echocardiogram and also had nuclear stress testing in the last 3 months. This morning, patient has no complaints and is breathing well on room air. She does state that she has oxygen at home and uses it only at night and as needed during the day. Her vitals have remained stable and blood work has been within normal limits. Her heart rate is controlled in the 70 to 80s on the higher dose of metoprolol, and she will be going home on this dose of metoprolol 25 mg twice a day. - Time Spent with Patient Total time spent providing and/or coordinating discharge services: - Constitutional Vitals: Temp Pulse Resp BP Pulse Ox 97.5 F L 67 16 116/79 95 11/21/16 07:13 11/21/16 07:13 11/21/16 07:44 11/21/16 07:13 11/21/16 07:44 General appearance: Present: cooperative, pleasant, no acute distress, answers questions appropriately - Head Head exam: Present: atraumatic, normocephalic - Eye Eye exam: Present: PERRL, conjuntiva pink, sclera anicteric - Neck Neck exam general surgery: Present: supple, trachea midline. Absent: lymphadenopathy - Respiratory Respiratory exam: Present: rales. Absent: accessory muscle use, rhonchi, wheezes - Cardiovascular Cardiovascular exam: Present: irregular rhythm, +S1, +S2. Absent: bradycardia, diastolic murmur, gallop, rubs, systolic murmur, tachycardia - GI/Abdominal GI/Abdominal exam: Present: normal bowel sounds, soft, no peritoneal signs. Absent: distended, tenderness - Extremities Exam Extremities exam: Present: warm, radial pulses palpable and symetrical. Absent : calf tenderness, cyanotic, pedal edema - Neurological Exam Neurological exam: Present: alert, no focal deficits. Absent: facial droop, speech deficit - Skin Skin exam: Present: dry, intact - VTE Reasons for not Prescribing Prophylaxis: Not indicated-Anticoagulated or INR therapeutic <Aayush Kessler - Last Filed: 11/21/16 16:54> Date of Encounter: 11/21/16 - Discharge Diagnosis (1) Atrial fibrillation with RVR Status: Acute (2) Chest pain Status: Acute Qualifiers: Chest pain type: chest pain on breathing Qualified Code(s): R07.1 - Chest pain on breathing (3) Hypertension Status: Chronic Qualifiers: Hypertension type: essential hypertension Qualified Code(s): I10 - Essential (primary) hypertension (4) Mitral stenosis Status: Chronic Qualifiers: Cardiac valve disease etiology: rheumatic Qualified Code(s): I05.0 - Rheumatic mitral stenosis (5) DVT prophylaxis Status: Acute Procedures/tests Complete & Pending: Procedures Performed prior 72 hours Category Date Time Status ECG 12 lead ECG [ECG] Routine Y 11/19/16 14:43 Completed Date of admission: 11/18/16 07:46 Primary care physician: Ginny Fischer CNP Hospital course: Ms. Lui is a 76 year old female - Time Spent with Patient Total time spent providing and/or coordinating discharge services: - Constitutional Vitals: Temp Pulse Resp BP Pulse Ox 97.5 F L 67 16 116/79 95 11/21/16 07:13 11/21/16 07:13 11/21/16 07:44 11/21/16 07:13 11/21/16 07:44 - Attending Attestation I examined this patient and my medical decision-making was reviewed with the FOLDER GLUER OPERATOR/PA/Advanced Practice Nurse/Resident Physician. I agree with the documented findings, disposition and treatment plan as described except to the extent set forth below.
[2016-11-21] MEDS: Loratadine 10 MG TABLET PO SCH (09:19)
[2016-11-21] MEDS: Furosemide 40 MG TABLET PO SCH (09:21)
[2016-11-21] MEDS ORDERED: *HR* Warfarin 2.5 MG TABLET PO SCH (18:00)
== END 2016-11-21 11:50 | disposition home or self-care (01) | DRG 309 ==
LOC: EMEROO 00:05 → 2NENU 03:24 → INTOOBSV 03:24 → 2NENU 04:04
PROVIDERS: ADMIT Internal Medicine; ATTEND Internal Medicine

== ENCOUNTER 2017-09-25 01:31 | Inpatient (IN) ==
[2017-09-25] MEDS ORDERED: Ipratropium/Albuterol Neb 3 ML IH ONE (01:39)
[2017-09-25] MEDS ORDERED: methylPREDNISolone 125 MG/2 ML VIAL IVP ONE (01:43)
[2017-09-25] MEDS ORDERED: WATER IVC SCH (01:45)
[2017-09-25] MEDS ORDERED: D5 IVC SCH (01:45)
[2017-09-25] MEDS ORDERED: DILTIAZEM HCL IVC SCH (01:45)
[2017-09-25 02:02] LABS: Basophils # 0.1 K/mcL (0.0-0.2); Basophils % 0.5 %; Eosinophils % 0.2 %; Hematocrit 38.8 % (35.3-44.9); Lymphocytes # 1.8 K/mcL (0.6-4.6); Lymphocytes % 15.1 %; Mean Corpuscular HGB Conc 33.5 g/dL (31.6-35.5); Mean Corpuscular Hemoglobin 32.4 pg (28.0-33.3); Mean Corpuscular Volume 96.8 fL (83.0-100.0); Mean Platelet Volume 10.6 fL (9.4-12.4); Monocytes # 0.7 K/mcL (0.0-1.3); Monocytes % 6.1 %; Neutrophils # 9.3 K/mcL (1.6-8.9); Platelet Count 269 K/mcL (140-400); Red Blood Count 4.01 M/mcL (3.82-4.97); Red Cell Distribution Width 13.2 % (11.5-14.5); Segmented Neutrophils % 77.1 %
[2017-09-25 02:15] LABS: BUN/Creatinine Ratio 33 (6-26); Blood Urea Nitrogen 29 mg/dL (7-20); Calcium 9.2 mg/dL (8.6-10.8); Carbon Dioxide 26 mEq/L (19-29); Chloride 106 mEq/L (98-109); Glucose 162 mg/dL (70-99); Osmolality,Calculated 301 (280-300); Potassium 4.3 mEq/L (3.5-4.5); Sodium 141 mEq/L (136-145); eGFR For African Americans > 60 (> 60); eGFR For Non-African Americans > 60 (> 60)
[2017-09-25 02:23] LABS: INR 1.8; Prothrombin Time 19.5 Seconds (9.4-12.1)
[2017-09-25] MEDS ORDERED: dilTIAZem HCl 100 MG in D5% in Water 50 ML IVC SCH (02:30)
--- NOTE | 2017-09-25 02:30 | Emergency Department Note ---
START Narrative - START START: I examined this patient and my medical decision-making was reviewed with the Resident Physician. I agree with the documented findings, disposition and treatment plan as described except to the extent set forth below. 77 year old female presents to the ED with complaints of COPD excerbation and possibly pneumoina with cough and has a history fo atrial fibrillation and is currently on metoprolol and states that she was at rest and felt flutters. She has a history of CHF as well. It appears that she has afib rvr with rate of 140s and we have trated that with cardizem push and it has improved to 80s. Matt appears to have a WBC of 12 and a CXR (+) pulmonary edema and pnuemonia in additio nwith a BNP of 870. We will admit for COPD/CHF excerbation and afib with rVR. In addition she has will recieve breathing treatments and lasix therapy.
[2017-09-25] MEDS ORDERED: Furosemide 40 MG/4 ML VIAL IVP ONE (02:55)
[2017-09-25] MEDS ORDERED: Levofloxacin 750 MG/150 ML 750 MG/150 ML BAG IVPB ONE (03:13)
--- NOTE | 2017-09-25 03:18 | Emergency Department Note ---
Disposition Clinical Impression: Atrial fibrillation with RVR, COPD exacerbation Pneumonia Qualifiers: Pneumonia type: due to unspecified organism Laterality: unspecified laterality Lung location: unspecified part of lung Qualified Code(s): J18.9 - Pneumonia, unspecified organism Heart failure Qualifiers: Heart failure type: unspecified heart failure type Heart failure chronicity: unspecified heart failure chronicity Qualified Code(s): I50.9 - Heart failure, unspecified Disposition: Admitted As Inpatient Condition: Good SOB HPI - General Chief Complaint: ED Shortness of Breath/Dyspnea Stated Complaint: KATHIA Time Seen by Provider: 09/25/17 01:35 Source: patient, EMS Limitations: no limitations Nursing Notes Reviewed: Yes Vital Signs Reviewed: Yes - History of Present Illness Patient presents via EMS for evaluation of shortness of breath and palpitations. Patient is in A. fib RVR with a ventricular rate of 138. The patient states that she has had a cough and has been treated outpatient for COPD exacerbation. Patient was given Levaquin for possible pneumonia but has not taken it secondary to her having insomnia after her first dose. The patient states that she has had weakness and fatigue and chills and cough with positive sputum production described as yellow but no fever - Related Data Home Medications Medication Instructions Recorded Confirmed Albuterol Neb [Proventil Neb] 2.5 mg IH Q4H PRN 08/05/16 09/25/17 Albuterol Sulfate [Proair Hfa] 2 puff IH Q4H PRN 08/05/16 09/25/17 Beclomethasone Diprop 80mcg [QVAR 1 puff IH BID 08/05/16 09/25/17 80 mcg] Fluticasone Propionate Nasal 50 mcg NS DAILY PRN 08/05/16 09/25/17 [Flonase] Furosemide [Lasix] 60 mg PO BID PRN 08/05/16 09/25/17 Lisinopril [Zestril] 10 mg PO DAILY 08/05/16 09/25/17 Loratadine [Claritin] 10 mg PO DAILY 08/05/16 09/25/17 Oxygen 2 l NS AD 08/05/16 09/25/17 Potassium Chloride [K-Tab ER] 10 meq PO DAILY 08/05/16 09/25/17 Tiotropium [place] [Spiriva 2 puff IH DAILY 08/05/16 09/25/17 Respimat] Aspirin 81 mg PO DAILY 10/10/16 09/25/17 Warfarin [Coumadin] 5 mg PO QPM 10/10/16 09/25/17 Omeprazole [PriLOSEC] 20 mg PO DAILY 09/25/17 09/25/17 Previous Rx's Medication Instructions Recorded Metoprolol [Lopressor] 25 mg PO BID #60 tablet 11/21/16 Allergies Allergy/AdvReac Type Severity Reaction Status Date / Time Cefaclor [From Ceclor] Allergy Difficulty Verified 10/10/16 09:47 Breathing cephalexin Allergy Difficulty Verified 10/10/16 09:47 Breathing doxycycline Allergy Anaphylaxis Verified 10/10/16 09:47 Penicillins Allergy Hives Verified 10/10/16 09:47 Sulfa (Sulfonamide Allergy Anaphylaxis Verified 10/10/16 09:47 Antibiotics) Review of Systems: CONSTITUTIONAL: Weakness and fatigue and chills No weight loss, fever, HEENT: Eyes: No visual changes. Ears, Nose, Throat: No hearing loss, difficulty talking or unable to swallow. SKIN: No rash or itching. CARDIOVASCULAR: Chest pain with palpitations RESPIRATORY: Shortness of breath with cough and sputum production GASTROINTESTINAL: No anorexia, nausea, vomiting or diarrhea. No abdominal pain or blood. GENITOURINARY: No burning on urination or hematuria. NEUROLOGICAL: No headache, dizziness, syncope, paralysis, ataxia, numbness or tingling in the extremities. No change in bowel or bladder control. MUSCULOSKELETAL: No muscle pain, back pain, joint pain or stiffness. Edema in the lower extremities Past Medical History - Past Medical History Medical history: Reports: asthma, atrial fibrillation, CHF, COPD, CVA, hypertension Surgical history: Reports: appendectomy, cholecystectomy, hysterectomy Psychiatric history: Reports: no psych history - Social History Smoking Status: Never smoker Smokeless Tobacco Status: No Alcohol use: Reports: none Drug use: Reports: none Physical Exam General appearance: NAD, conversant Eyes: anicteric sclerae, moist conjunctivae; PERRL HENT: Atraumatic; oropharynx clear with moist mucous membranes and no mucosal ulcerations Neck: Normal inspection; Trachea midline; FROM, supple Lungs: Wheezing to anterior lung bases, rales lower lung bases posteriorly with rhonchi on the left. CV: RRR, no MRGs Abdomen: Soft, non-tender; no rebound or gaurding Extremities: Bilateral pitting edema through the knee. +2. extremity lymphadenopathy Skin: Normal temperature; no rash, ulcers or lesions Psych: Appropriate mood and affect Neuro: alert and oriented to person, place and time - General Limitations: no limitations General appearance: alert, in no apparent distress Course - Reevaluation(s) Reevaluation #1: A. fib resolved with Cardizem push. No drip needed. Concern for COPD exacerbation and pneumonia setting off her A. fib RVR and overall CHF. Levaquin given. - Consultations Consultation #1: Dr. Saunders accepts patient for admission Vital Signs Temperature 98.5 F 09/25/17 01:32 Pulse Rate 123 09/25/17 01:32 Respiratory Rate 20 09/25/17 01:32 Blood Pressure 139/101 09/25/17 01:32 O2 Sat by Pulse Oximetry 92 09/25/17 01:32 Temperature 97.6 F 09/25/17 04:19 Pulse Rate 67 09/25/17 04:19 Respiratory Rate 17 09/25/17 04:19 Blood Pressure 118/66 09/25/17 04:19 O2 Sat by Pulse Oximetry 95 09/25/17 04:19 Oxygen Delivery Oxygen Delivery Nasal Cannula Shortness of Breath/Dyspnea - Lab Data Result diagrams: 09/25/17 01:45 09/25/17 01:45 Lab Results 09/25/17 09/25/17 09/25/17 Range/Units 01:45 01:45 01:45 WBC 12.0 H (4.3-11.1) K/mcL RBC 4.01 (3.82-4.97) M/mcL Hgb 13.0 (11.5-15.4) g/dL Hct 38.8 (35.3-44.9) % MCV 96.8 (83.0-100.0) fL MCH 32.4 (28.0-33.3) pg MCHC 33.5 (31.6-35.5) g/dL RDW 13.2 (11.5-14.5) % Plt Count 269 (140-400) K/mcL MPV 10.6 (9.4-12.4) fL Immature Gran % 1.0 (0-4) % Seg Neutrophils % 77.1 % Lymphocytes % 15.1 % Monocytes % 6.1 % Eosinophils % 0.2 % Basophils % 0.5 % Neutrophils # 9.3 H (1.6-8.9) K/mcL Lymphocytes # 1.8 (0.6-4.6) K/mcL Monocytes # 0.7 (0.0-1.3) K/mcL Eosinophils # 0.0 (0.0-0.6) K/mcL Basophils # 0.1 (0.0-0.2) K/mcL PT (9.4-12.1) Seconds INR Sodium 141 (136-145) mEq/L Potassium 4.3 (3.5-4.5) mEq/L Chloride 106 (98-109) mEq/L Carbon Dioxide 26 (19-29) mEq/L BUN 29 H (7-20) mg/dL Creatinine 0.87 (0.57-1.11) mg/dL Est GFR ( Amer) > 60 (> 60) Est GFR (Non-Af Amer) > 60 (> 60) BUN/Creatinine Ratio 33 H (6-26) Glucose 162 H (70-99) mg/dL Calculated Osmolality 301 H (280-300) Calcium 9.2 (8.6-10.8) mg/dL Troponin I 0.00 (0-0.03) ng/mL B-Natriuretic Peptide (0-100) pg/mL 09/25/17 09/25/17 Range/Units 01:45 01:45 WBC (4.3-11.1) K/mcL RBC (3.82-4.97) M/mcL Hgb (11.5-15.4) g/dL Hct (35.3-44.9) % MCV (83.0-100.0) fL MCH (28.0-33.3) pg MCHC (31.6-35.5) g/dL RDW (11.5-14.5) % Plt Count (140-400) K/mcL MPV (9.4-12.4) fL Immature Gran % (0-4) % Seg Neutrophils % % Lymphocytes % % Monocytes % % Eosinophils % % Basophils % % Neutrophils # (1.6-8.9) K/mcL Lymphocytes # (0.6-4.6) K/mcL Monocytes # (0.0-1.3) K/mcL Eosinophils # (0.0-0.6) K/mcL Basophils # (0.0-0.2) K/mcL PT 19.5 H (9.4-12.1) Seconds INR 1.8 Sodium (136-145) mEq/L Potassium (3.5-4.5) mEq/L Chloride (98-109) mEq/L Carbon Dioxide (19-29) mEq/L BUN (7-20) mg/dL Creatinine (0.57-1.11) mg/dL Est GFR ( Amer) (> 60) Est GFR (Non-Af Amer) (> 60) BUN/Creatinine Ratio (6-26) Glucose (70-99) mg/dL Calculated Osmolality (280-300) Calcium (8.6-10.8) mg/dL Troponin I (0-0.03) ng/mL B-Natriuretic Peptide 870 H (0-100) pg/mL
[2017-09-25] MEDS ORDERED: Acetaminophen 325 MG TABLET PO PRN (07:50)
[2017-09-25] MEDS ORDERED: Naloxone 0.4 MG/ML INJ IVP PRN (07:50)
[2017-09-25] MEDS ORDERED: Ondansetron 4 MG/2 ML VIAL IVP PRN (07:50)
[2017-09-25] MEDS ORDERED: Fluticasone Propionate Nasal 50 MCG/SPRAY BOTTLE NS PRN (07:52)
[2017-09-25] MEDS ORDERED: Albuterol 2.5 MG/3 ML NEBULIZER IH PRN (07:55)
[2017-09-25] MEDS: MethylPREDNISolone 40 MG/ML VIAL IVP SCH ×2 (08:18→16:08)
[2017-09-25] MEDS: Loratadine 10 MG TABLET PO SCH (08:18)
[2017-09-25] MEDS: Aspirin 81 MG TAB.CHEW PO SCH (08:18)
[2017-09-25] MEDS ORDERED: Beclomethasone 80mcg MDI IH SCH (09:00)
[2017-09-25] MEDS ORDERED: Furosemide 40 MG/4 ML VIAL IVP SCH (09:00)
--- NOTE | 2017-09-25 09:03 | Internal Med History&Physical ---
Date of Encounter: 09/25/17 Time of Encounter: 07:40 Assessment and Plan (1) Atrial fibrillation Current visit: Yes Status: Chronic Pt with parox atrial fibrillation. Currently in sinus rhythm. Monitor on telemetry at this time. Continue home coumadin dosing by pharmacy. Consult to cardiology for any further input/changes. Will make sure TSH has been checked. Qualifiers: Atrial fibrillation type: paroxysmal Qualified Code(s): I48.0 - Paroxysmal atrial fibrillation (2) COPD exacerbation Current visit: Yes Status: Acute Recently has had increased dyspnea as well as cough and congestion. Treated with Levaquin outpatient but stopped treatment due to insomnia. Tolerated an IV dose earlier today. Continue aerosols, oxygen, abx. Add steroids. (3) Pneumonia Current visit: Yes Status: Suspected CXR with suspicion for pneumonia versus atelectasis. On IV Levaquin. Recheck 2 view CXR. Qualifiers: Pneumonia type: due to unspecified organism Laterality: bilateral Lung location: lower lobe of lung Qualified Code(s): J18.9 - Pneumonia, unspecified organism (4) Hypertension Current visit: No Status: Chronic Continue home medications. Qualifiers: Hypertension type: essential hypertension Qualified Code(s): I10 - Essential (primary) hypertension (5) Mitral stenosis Current visit: No Status: Chronic Will ask cardiology to evaluate for any needed changes. Qualifiers: Cardiac valve disease etiology: rheumatic Qualified Code(s): I05.0 - Rheumatic mitral stenosis (6) Heart failure Current visit: Yes Status: Acute Continue diuresis. Monitor renal function. Qualifiers: Heart failure type: diastolic Heart failure chronicity: acute Qualified Code(s): I50.31 - Acute diastolic (congestive) heart failure (7) CAD (coronary artery disease) Current visit: Yes Status: Chronic Chronic issue. Qualifiers: Coronary Disease-Associated Artery/Lesion type: [place] artery [place] vs. transplanted heart: [place] heart Associated angina: without angina Qualified Code(s): I25.10 - Atherosclerotic heart disease of [place] coronary artery without angina pectoris (8) Obesity (BMI 35.0-39.9 without comorbidity) Current visit: Yes Status: Chronic Chronic issue Internal Medicine - H&P: HPI Chief complaint: Dyspnea Admitted From: Emergency Dept Plans for Post Hospital Care: Home History of present illness: Ms. Lui is a 77 year old female with hx of rheumatic heart disease and atrial fibrillation presented to ED with complaints of worsening shortness of breath and concerns for rapid atrial fibrillation. She stated she has had progressively worsening dyspnea but it feels much worse over last few weeks. She was seen by PCP and started on Levaquin for presumed COPD exacerbation. After her first dose she experienced insomnia and has not taken the medication since that time. Nothing else has made it better or worse. She also had repeat echo done recently and was told that her mitral valve was worsening. In the ED she was given IVP Cardizem and her atrial fib improved. At the current time her only complaint is dyspnea with exertion. She currently denies chest pain, abd pain, fever or chills. She has had some increased sputum production. Past Med Surg Social Fam HX - Past Medical History Source: patient, old records reviewed Medical history: asthma, atrial fibrillation, CHF, COPD, CVA, hypertension Psychiatric history: no psych history - Past Surgical History Surgical History: appendectomy, cholecystectomy, hysterectomy - Social History Smoking Status: Never smoker Smokeless Tobacco Status: No Alcohol use: none Drug use: none Occupational status: retired Current living situation: With Family Activity Level: Independent ambulation - Family History Father Living Status: Hx Family Cardiac Disorders: Yes Mother Living Status: Hx Family Endocrine Disorder: Yes Internal Medicine - H&P: Meds Albuterol Neb [Proventil Neb] 2.5 mg IH Q4H PRN 08/05/16 [History] Albuterol Sulfate [Proair Hfa] 2 puff IH Q4H PRN 08/05/16 [History] Beclomethasone Diprop 80mcg [QVAR 80 mcg] 1 puff IH BID 08/05/16 [History] Fluticasone Propionate Nasal [Flonase] 50 mcg NS DAILY PRN 08/05/16 [History] Furosemide [Lasix] 60 mg PO BID PRN 08/05/16 [History] Lisinopril [Zestril] 10 mg PO DAILY 08/05/16 [History] Loratadine [Claritin] 10 mg PO DAILY 08/05/16 [History] Oxygen 2 l NS AD 08/05/16 [History] Potassium Chloride [K-Tab ER] 10 meq PO DAILY 08/05/16 [History] Tiotropium [place] [Spiriva Respimat] 2 puff IH DAILY 08/05/16 [History] Aspirin 81 mg PO DAILY 10/10/16 [History] Warfarin [Coumadin] 5 mg PO SUMOTUWETHFR 10/10/16 [History] Metoprolol [Lopressor] 25 mg PO BID #60 tablet 11/21/16 [Rx] Omeprazole [PriLOSEC] 20 mg PO DAILY 09/25/17 [History] PredniSONE [Deltasone] See Taper PO AD 09/25/17 [History] Warfarin [Coumadin] 2.5 mg PO SA 09/25/17 [History] levoFLOXacin [Levaquin] 500 mg PO DAILY 09/25/17 [History] 3 Allergy/AdvReac Type Severity Reaction Status Date / Time Cefaclor [From [facility]] Allergy Difficulty Verified 09/25/17 07:33 Breathing cephalexin Allergy Difficulty Verified 09/25/17 07:33 Breathing doxycycline Allergy Anaphylaxis Verified 09/25/17 07:33 Penicillins Allergy Hives Verified 09/25/17 07:33 Sulfa (Sulfonamide Allergy Anaphylaxis Verified 09/25/17 07:33 Antibiotics) All Systems PM: A 10-system review of systems was performed and is negative for pertinent findings except as documented above in the HPI. - Constitutional Constitutional: chills, fatigue, malaise - EENT Eyes: no change in vision, no loss of vision Ears: no decreased hearing Nose, mouth and throat: no dry mouth, no mouth pain, no sore throat - Cardiovascular Cardiovascular ROS IM: dyspnea on exertion, irregular heart rhythm, no chest pain, no lightheadedness, no orthopnea, no palpitations, no syncope - Respiratory Respiratory: dyspnea on exertion, wheezing, no pain on inspiration, no chest congestion, no change in phlegm color - Gastrointestinal Gastrointestinal: no abdominal pain, no heartburn, no loose stools, no melena - Genitourinary Genitourinary: no difficulty voiding, no dysuria, no nocturia, no urinary urgency - Musculoskeletal Musculoskeletal ROS IM: arthralgias, no back pain, no limited range of motion - Integumentary Integumentary IM: no erythema, no rash - Neurological Neurological ROS: no dizziness, no vertigo, no weakness - Psychiatric Psychiatric: no difficulty concentrating - Endocrine Endocrine IM: no cold intolerance, no heat intolerance - Hematologic/Lymphatic Hematologic/Lymphatic: no easy bruising, no lymphadenopathy - Allergic/Immunologic Allergic/Immunologic: no itchy eyes, no lip swelling - Constitutional Vitals: Temp Pulse Resp BP Pulse Ox 97.5 F L 61 16 120/71 95 09/25/17 07:19 09/25/17 07:19 09/25/17 07:19 09/25/17 07:19 09/25/17 07:19 General appearance: Present: A&O X 3, pleasant, answers questions appropriately - Head Head exam: Present: normocephalic - Eye Eye exam: Present: EOMI, normal appearance, PERRL, conjuntiva pink - ENT ENT exam: Present: mucous membranes moist, normal external ear exam - Neck Neck exam general surgery: Present: normal inspection. Absent: lymphadenopathy , nuchal rigidity, thyromegaly - Respiratory Respiratory exam: Present: decreased breath sounds, wheezes. Absent: rales, rhonchi - Cardiovascular Cardiovascular exam: Present: RRR, systolic murmur Additional comments: Murmur of MR heard. No distinct diastolic murmur heard but difficult to hear. - GI/Abdominal GI/Abdominal exam: Present: normal bowel sounds, soft. Absent: tenderness - Extremities Exam Extremities exam: Present: warm. Absent: tenderness Additional comments: Trace edema - Back Exam Back exam: Present: full ROM. Absent: paraspinal tenderness - Neurological Exam Neurological exam: Present: alert, oriented X3, no focal deficits - Psychiatric Psychiatric exam: Present: normal affect, normal mood - Skin Skin exam: Present: dry, warm. Absent: rash Internal Med - H&P Results - Labs CBC & Chem 7: 09/25/17 01:45 09/25/17 01:45 Labs: Cardiac Enzymes 09/25/17 Range/Units 08:20 Troponin I 0.03 (0-0.03) ng/mL - EKG Data EKG shows normal: sinus rhythm
--- NOTE | 2017-09-25 09:37 | Cardiology Consult Note ---
<Jey Urrutia - Last Filed: 09/25/17 15:08> Date of Encounter: 09/25/17 Time of Encounter: 10:00 Assessment and Plan (1) Pneumonia Current Visit: Yes Status: Suspected Per Cardiology: Suspect main symptoms from pneumonia-- on antibiotics and steroids per primary. Qualifiers: Pneumonia type: due to unspecified organism Laterality: bilateral Lung location: lower lobe of lung Qualified Code(s): J18.9 - Pneumonia, unspecified organism (2) Congestive heart failure due to valvular disease Current Visit: No Status: Chronic Per Cardiology: BNP 800's, has hx of mild BNPs. Improved with IV Lasix. Relatively euvolemic on exam. Wt 212 lbs, weighed 213lbs 05/2017. On BB and ACEI. On lasix at home. Suspect majority of symptoms d/t pneumonia with hx of COPD. (3) Mitral stenosis Current Visit: No Status: Chronic Per Cardiology: Known history of mitral stenosis. Echo from August 2016 showed moderate mitral stenosis and mild mitral regurgitation. Echo from May 2017 showed moderate mitral stenosis, moderate mitral regurgitation, mild aortic regurgitation, mild diastolic dysfunction, preserved EF 60-65%. Recommend continue to monitor. Will follow-up in outpatient setting once recovered from pneumonia. We'll consider repeat echo based on clinical course. No surgical evaluation warranted at this time. Discussed with Dr. Llamas, codi s/o, re-consult PRN, has f/u scheduled. Qualifiers: Cardiac valve disease etiology: rheumatic Qualified Code(s): I05.0 - Rheumatic mitral stenosis (4) CAD (coronary artery disease) Current Visit: Yes Status: Chronic Per Cardiology: Heart catheterization September 2016 showed nonobstructive CAD. On beta radha, aspirin, KAREN inhibitor. Had been on statin in past. Trops - x 2. Qualifiers: Coronary Disease-Associated Artery/Lesion type: [place] artery [place] vs. transplanted heart: pala heart Associated angina: without angina Qualified Code(s): I25.10 - Atherosclerotic heart disease of [place] coronary artery without angina pectoris (5) Atrial fibrillation Current Visit: Yes Status: Chronic Per Cardiology: PAF on admit, now SR. On BB. History of paroxysmal atrial fibrillation. Remains anticoagulated with Coumadin followed by [facility]-- they were notified today of patient's hospital stay and appointment will be rescheduled. Current INR 1.8. H&H stable. Qualifiers: Atrial fibrillation type: paroxysmal Qualified Code(s): I48.0 - Paroxysmal atrial fibrillation Discussion w patient/family: The assessment and plan as outlined above was discussed with the patient and/or family members who expressed understanding and agreement. All questions were answered. Thank you for involving us in the care of your patient. Please call with any questions. History of Present Illness Consult date: 09/25/17 Requesting physician: Amanuel Rodriguez Consult reason: SOB Chief complaint: SOB History of present illness: Ms. Lui is a 77 year old female with a relevant past medical history of CHF, hypertension, COPD, atrial fibrillation on Coumadin being managed by [facility], mitral stenosis, CVA, and hyperlipidemia. Cardiology consult for shortness of breath. Patient reports increased shortness of breath over the past few weeks. Additionally, has experienced cough with yellow sputum and occasional fever and chills. She denies any nausea, vomiting, diarrhea. Denies any active bleeding or blood loss. Reports pending appointment with [facility] for INR draw today. She denies any chest pain, palpitations. She does report in the ER she was expressing some shortness of breath and did develop some jaw discomfort with some left arm numbness. Her only symptom free. She reports shortness of breath has improved with IV diuresis. Past Med Surg Social Fam HX - Past Medical History Attestation: Yes The following information was validated with the patient. Source: patient, old records reviewed, obtained from family Medical history: asthma, atrial fibrillation, CHF, COPD, CVA, hypertension Psychiatric history: no psych history - Past Surgical History Surgical History: appendectomy, cholecystectomy, hysterectomy - Social History Smoking Status: Never smoker Smokeless Tobacco Status: No Alcohol use: none Drug use: none - Family History Father Living Status: Hx Family Cardiac Disorders: Yes Mother Living Status: Hx Family Endocrine Disorder: Yes Medications and Allergies Albuterol Neb [Proventil Neb] 2.5 mg IH Q4H PRN 08/05/16 [History] Albuterol Sulfate [Proair Hfa] 2 puff IH Q4H PRN 08/05/16 [History] Beclomethasone Diprop 80mcg [QVAR 80 mcg] 1 puff IH BID 08/05/16 [History] Fluticasone Propionate Nasal [Flonase] 50 mcg NS DAILY PRN 08/05/16 [History] Furosemide [Lasix] 60 mg PO BID PRN 08/05/16 [History] Lisinopril [Zestril] 10 mg PO DAILY 08/05/16 [History] Loratadine [Claritin] 10 mg PO DAILY 08/05/16 [History] Oxygen 2 l NS AD 08/05/16 [History] Potassium Chloride [K-Tab ER] 10 meq PO DAILY 08/05/16 [History] Tiotropium [place] [Spiriva Respimat] 2 puff IH DAILY 08/05/16 [History] Aspirin 81 mg PO DAILY 10/10/16 [History] Warfarin [Coumadin] 5 mg PO SUMOTUWETHFR 10/10/16 [History] Metoprolol [Lopressor] 25 mg PO BID #60 tablet 11/21/16 [Rx] Omeprazole [PriLOSEC] 20 mg PO DAILY 09/25/17 [History] PredniSONE [Deltasone] See Taper PO AD 09/25/17 [History] Warfarin [Coumadin] 2.5 mg PO SA 09/25/17 [History] levoFLOXacin [Levaquin] 500 mg PO DAILY 09/25/17 [History] 3 Allergy/AdvReac Type Severity Reaction Status Date / Time Cefaclor [From [facility]] Allergy Difficulty Verified 09/25/17 07:33 Breathing cephalexin Allergy Difficulty Verified 09/25/17 07:33 Breathing doxycycline Allergy Anaphylaxis Verified 09/25/17 07:33 Penicillins Allergy Hives Verified 09/25/17 07:33 Sulfa (Sulfonamide Allergy Anaphylaxis Verified 09/25/17 07:33 Antibiotics) All Systems Review: A 10-system review of systems was performed and is negative for pertinent findings except as documented above in the HPI. - Constitutional Constitutional: chills, fever(s) - Cardiovascular Cardiovascular: as per HPI, dyspnea at rest, dyspnea on exertion, irregular heart rhythm, radiating jaw, neck or arm pain - Respiratory Respiratory: cough Physical Examination Vital Signs, Last 4 Hours Temp Pulse Resp BP Pulse Ox 09/25/17 07:19 97.5 F L 61 16 120/71 95 General: Conversant, No Apparent Distress HEENT: Atraumatic, Normocephaly, Mucus Membranes Moist Neck: No JVD, Normal carotid pulses Cardiac: Reg Rate and Rhythm, Normal S1 and S2, Other (Grade III/ mumur noted) Lungs: Normal Breath Sounds, No Wheeze, Rales, Rhonchi Neuro: Alert and responsive, No focal deficits noted Abdomen: Soft, Non-Tender Skin: No rashes noted on visualized skin Musculoskeletal: No Chest Wall Tenderness Extremities: Other (trace nonpitting edema bilateral LE) Results 09/25/17 01:45 09/25/17 01:45 Lab Results Laboratory Tests 09/25/17 09/25/17 09/25/17 01:45 01:45 01:45 WBC 12.0 H INR Creatinine 0.87 Est GFR (Non-Af Amer) > 60 Troponin I 0.00 B-Natriuretic Peptide 09/25/17 09/25/17 09/25/17 01:45 01:45 08:20 WBC INR 1.8 Creatinine Est GFR (Non-Af Amer) Troponin I 0.03 B-Natriuretic Peptide 870 H ITS Impressions Chest X-Ray 09/25/17 01:39 IMPRESSION: 1. Pulmonary edema with bibasilar atelectasis or pneumonia. 2. Cardiomegaly with possible pulmonary artery hypertension. D/ / Blair Up MD / Blair Up MD Interpreting Provider: Blair Up MD [facility] 09/2016: Lesion Findings/Interventions * Left Main Coronary Artery The LMCA is angiographically free of disease. * Left Anterior Descending There is a 20% stenosis in the Proximal LAD. There is a 20% stenosis in the Mid LAD. * Circumflex There is a 20% stenosis in the 1st Marginal. * Right Coronary Artery The RCA is angiographically free of disease. The Right PDA is angiographically free of disease. ECHO 05/2017: Impressions: LVEF 60-65%. Mild left ventricular diastolic dysfunction with elevated left atrial filling pressures. Normal right ventricular size and function. There is a rheumatic appearing mitral valve with moderate mitral stenosis. Moderate mitral regurgitation. The aortic valve leaflets appear mildly calcified and thickened with mild decrease in leaflet excursion. There is area-gradient mismatch (MG 10 mmHg-CANDIDO 1.3cm2). Mild aortic regurgitation. No pulmonary hypertension. Left Ventricular Wall Motion: Rest Echo Findings All wall segments showed normal motion. Intake & Output 09/22/17 09/23/17 09/24/17 09/25/17 23:59 23:59 23:59 23:59 Intake Total 240 / 240 Balance 240 / 240 Weight 96.615 kg Active Medications Acetaminophen (Tylenol) 650 mg PO Q6HR PRN PRN Reason: Mild Pain (1-3) Stop: 03/27/18 07:51 Albuterol Sulfate (Proventil Neb) 2.5 mg IH Q2H PRN; Protocol PRN Reason: Shortness Of Breath/Wheezing Stop: 03/27/18 07:56 Albuterol/Ipratropium (Duoneb) 3 ml IH QIDR [facility] Stop: 03/27/18 11:01 Last Admin: 09/25/17 10:55 Dose: 3 ml Aspirin (Aspirin) 81 mg PO DAILY [facility] Stop: 03/27/18 09:01 Last Admin: 09/25/17 08:18 Dose: 81 mg Beclomethasone Dipropionate (Qvar 80 Mcg) 1 puff IH BIDR [facility] PRN Reason: Protocol Stop: 03/27/18 22:01 Fluticasone Propionate (Flonase) 50 mcg NS DAILY PRN; Protocol PRN Reason: Nasal Congestion Stop: 03/27/18 07:53 Furosemide (Lasix) 40 mg IVP BIDDIURETIC [facility] Stop: 03/27/18 17:01 Levofloxacin/Dextrose (Levaquin Premix 750mg/150 Ml) 750 mg in 150 mls @ 100 mls/hr IVPB DAILY [facility]I PRN Reason: Protocol Stop: 03/28/18 09:01 Lisinopril (Zestril) 10 mg PO DAILY [facility] PRN Reason: Protocol Stop: 03/27/18 09:01 Last Admin: 09/25/17 08:18 Dose: 10 mg Loratadine (Claritin) 10 mg PO DAILY [facility] PRN Reason: Protocol Stop: 03/27/18 09:01 Last Admin: 09/25/17 08:18 Dose: 10 mg Methylprednisolone (Solu-Medrol) 40 mg IVP Q8HR [facility] Stop: 03/27/18 08:01 Last Admin: 09/25/17 08:18 Dose: 40 mg Metoprolol Tartrate (Lopressor) 25 mg PO BID [facility] Stop: 03/27/18 09:01 Last Admin: 09/25/17 08:18 Dose: 25 mg Naloxone HCl (Narcan) 0.4 mg IVP Q2MIN PRN PRN Reason: Opioid Reversal Stop: 03/27/18 07:51 Omeprazole (Prilosec) 20 mg PO DAILY@0630 YUNI PRN Reason: Protocol Stop: 03/27/18 06:31 Last Admin: 09/25/17 08:17 Dose: 20 mg Ondansetron HCl (Zofran) 4 mg IVP Q8HR PRN PRN Reason: Nausea And Vomiting Stop: 03/27/18 07:51 Warfarin Sodium (Coumadin) 5 mg PO SuMoTuWeThFr@1800 [facility] Stop: 03/27/18 18:01 Warfarin Sodium (Coumadin) 2.5 mg PO Sa@1800 [facility] Stop: 03/31/18 18:01 Warfarin Sodium (Coumadin Perpt) 1 each PO DAILY@1800 PRN PRN Reason: SEE COMMENTS Stop: 03/27/18 18:01 - Imaging and Cardiology Echo: report reviewed Cardiac cath: report reviewed - EKG Interpretation EKG results cardiology: personally reviewed (A. fib with RVR in the 130s), other (Telemetry reviewed with heart rate in the 70s, sinus rhythm, average heart rate 67 the past 24 hours, no further A. fib recurrence noted) Consult Discharge Plan - Plan Referrals: Ginny Fischer CNP [Primary Care Provider] - (office will call for patient for an appointment hospital follow up.) <Za Llamas - Last Filed: 09/25/17 18:13> Date of Encounter: 09/25/17 - Attending Attestation I have personally performed a face to face evaluation on this patient. I have reviewed and agree with the care plan with BANKRUPTCY ASSISTANT. Assessment and Plan Discussion w patient/family: The assessment and plan as outlined above was discussed with the patient and/or family members who expressed understanding and agreement. All questions were answered. Thank you for involving us in the care of your patient. Please call with any questions. History of Present Illness History of present illness: Ms. Lui is a 77 year old female All Systems Review: A 10-system review of systems was performed and is negative for pertinent findings except as documented above in the HPI. Physical Examination Vital Signs, Last 4 Hours Resp Pulse Ox 09/25/17 15:43 17 92 Results 09/25/17 01:45 09/25/17 01:45 Lab Results 09/25/17 13:33 Troponin I 0.03
[2017-09-25] MEDS: Ipratropium/Albuterol Neb 3 ML IH SCH ×3 (10:55→22:40)
[2017-09-25] MEDS: Furosemide 40 MG/4 ML VIAL IVP SCH (16:08)
[2017-09-25] MEDS ORDERED: *HR* Warfarin 5 MG TABLET PO SCH (18:00)
[2017-09-25] MEDS ORDERED: Warfarin perPT PO PRN ×2 (18:00)
[2017-09-25] MEDS: Beclomethasone 80mcg MDI IH SCH (22:40)
[2017-09-26] MEDS: MethylPREDNISolone 40 MG/ML VIAL IVP SCH ×4 (00:42→23:36)
[2017-09-26 04:04] LABS: Basophils % 0.1 %; Hemoglobin 12.1 g/dL (11.5-15.4); Immature Granulocytes % 0.9 % (0-4); Lymphocytes # 0.6 K/mcL (0.6-4.6); Lymphocytes % 4.3 %; Mean Corpuscular HGB Conc 32.7 g/dL (31.6-35.5); Mean Corpuscular Hemoglobin 31.5 pg (28.0-33.3); Mean Corpuscular Volume 96.4 fL (83.0-100.0); Mean Platelet Volume 10.6 fL (9.4-12.4); Monocytes # 0.5 K/mcL (0.0-1.3); Monocytes % 3.2 %; Platelet Count 240 K/mcL (140-400); Red Blood Count 3.84 M/mcL (3.82-4.97); Red Cell Distribution Width 13.6 % (11.5-14.5); Segmented Neutrophils % 91.5 %
[2017-09-26 04:05] LABS: INR 2.7; Prothrombin Time 30.2 Seconds (9.4-12.1)
[2017-09-26] MEDS: Ipratropium/Albuterol Neb 3 ML IH SCH ×4 (04:12→23:06)
[2017-09-26 04:17] LABS: BUN/Creatinine Ratio 33 (6-26); Blood Urea Nitrogen 30 mg/dL (7-20); Calcium 9.1 mg/dL (8.6-10.8); Carbon Dioxide 30 mEq/L (19-29); Chloride 101 mEq/L (98-109); Chol/HDL Ratio 4.1 (0-4.9); Cholesterol 227 mg/dL (< 200); Glucose 128 mg/dL (70-99); HDL Cholesterol 55 mg/dL (40-59); LDL Cholesterol,Calculated 156 mg/dL (0-99); Osmolality,Calculated 296 (280-300); Potassium 4.3 mEq/L (3.5-4.5); Sodium 139 mEq/L (136-145); Triglycerides 80 mg/dL (< 150); eGFR For African Americans > 60 (> 60); eGFR For Non-African Americans 60 (> 60)
--- NOTE | 2017-09-26 05:49 | Electrocardiograph Report ---
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
--- NOTE | 2017-09-26 05:49 | Electrocardiograph Report ---
[place] [address] Test Date: 2017-09-25 Pat Name: Lorrie Lui Department: 103 Room: 2A Gender: F Drafter Structural: : 1940 Requested By: Marta Coulter Order Number: [id number] Reading MD: David Zhao MD Measurements Intervals [place] Rate: 131 P: [place]: 0 QRS: 35 QRSD: 90 T: -8 QT: 295 QTc: 372 Interpretive Statements ATRIAL FIBRILLATION WITH RAPID VENTRICULAR RESPONSE WITH ABERRANT CONDUCTION OR VENTRICULAR PREMATURE COMPLEXES BASELINE ARTIFACT Electronically Signed On 09-26-2017 5:47:44 EST by David Zhao MD
[2017-09-26] MEDS: Loratadine 10 MG TABLET PO SCH (08:34)
[2017-09-26] MEDS: Aspirin 81 MG TAB.CHEW PO SCH (08:34)
[2017-09-26] MEDS: Furosemide 40 MG/4 ML VIAL IVP SCH ×2 (08:35→16:26)
[2017-09-26] MEDS: Levofloxacin 750 MG/150 ML 750 MG/150 ML BAG IVPB SCH (08:35)
[2017-09-26] MEDS: Beclomethasone 80mcg MDI IH SCH ×2 (10:30→23:06)
--- NOTE | 2017-09-26 17:41 | Internal Med Progress Note ---
Date of Encounter: 09/27/17 Time of Encounter: 17:40 - Assessment and plan (1) Acute diastolic (congestive) heart failure Current Visit: Yes Status: Acute Assessment and plan: Echo from 05/28 showed mild diastolic dysfunction and normal LVEF Cont Iv diuresis will switch to PO lasix in AM Cont all other home meds (2) Chest pain Current Visit: No Status: Acute Assessment and plan: due to pneumonia and CHF exacerbation resumed home meds ASA, Metoprolol Qualifiers: Chest pain type: chest pain on breathing Qualified Code(s): R07.1 - Chest pain on breathing (3) Hypertension Current Visit: No Status: Chronic Assessment and plan: stable with home meds Qualifiers: Hypertension type: essential hypertension Qualified Code(s): I10 - Essential (primary) hypertension (4) COPD exacerbation Current Visit: Yes Status: Acute Assessment and plan: cont IV steroids + Bronchodilators She does use 2 Lit O2 at QHS at home (5) Pneumonia Current Visit: Yes Status: Acute Assessment and plan: Mostly bacterial cont empirical abx Levaquin Qualifiers: Pneumonia type: due to unspecified organism Laterality: bilateral Lung location: lower lobe of lung Qualified Code(s): J18.9 - Pneumonia, unspecified organism (6) Atrial fibrillation Current Visit: Yes Status: Chronic Assessment and plan: stable and rate controlled on coumadin for anti coag Qualifiers: Atrial fibrillation type: paroxysmal Qualified Code(s): I48.0 - Paroxysmal atrial fibrillation (7) CAD (coronary artery disease) Current Visit: Yes Status: Chronic Assessment and plan: stable resumed home meds Qualifiers: Coronary Disease-Associated Artery/Lesion type: [place] artery [place] vs. transplanted heart: [place] heart Associated angina: without angina Qualified Code(s): I25.10 - Atherosclerotic heart disease of [place] coronary artery without angina pectoris - Subjective Interval history: Ms. Lui is a 77 year old female with a relevant past medical history of CHF, hypertension, COPD, atrial fibrillation on Coumadin being managed by [facility], mitral stenosis, CVA, and hyperlipidemia pt presented to ER with progressively worsening SOB / ARGUETA. She does c/o cough with yellowish expectoration. Pt was admitted in the hospital and started her on IV abx, O2, steroids and IV diuresis. Her symptoms started improving slowly She denied any CP today. Her SOB also better today - Constitutional Vitals: Temp Pulse Resp BP Pulse Ox 98.2 F 69 17 103/63 97 09/26/17 15:52 09/26/17 15:52 09/26/17 15:52 09/26/17 15:52 09/26/17 15:52 General appearance: Present: A&O X 3, pleasant, answers questions appropriately - Head Head exam: Present: atraumatic, normal inspection - Neck Neck exam general surgery: Present: supple - Respiratory Respiratory exam: Present: decreased breath sounds, wheezes (moderate). Absent : rales, respiratory distress, rhonchi - Cardiovascular Cardiovascular exam: Present: RRR, +S1, +S2. Absent: systolic murmur - GI/Abdominal GI/Abdominal exam: Present: normal bowel sounds, soft. Absent: rebound, rigid, tenderness - Extremities Exam Extremities exam: Present: pedal edema (trace). Absent: calf tenderness, tenderness - Back Exam Back exam: Absent: CVA tenderness (L), CVA tenderness (R) - Psychiatric Psychiatric exam: Present: normal affect, normal mood Internal Medicine: Result - Labs CBC & Chem 7: 09/26/17 03:53 09/26/17 03:53 Labs: Short CBC 09/26/17 Range/Units 03:53 WBC 14.2 H (4.3-11.1) K/mcL Hgb 12.1 (11.5-15.4) g/dL Hct 37.0 (35.3-44.9) % Plt Count 240 (140-400) K/mcL Neutrophils # 13.0 H (1.6-8.9) K/mcL BMP 09/26/17 03:53 Sodium 139 Potassium 4.3 Chloride 101 Carbon Dioxide 30 H BUN 30 H Creatinine 0.91 Glucose 128 H Calcium 9.1 Cardiac Enzymes 09/25/17 Range/Units 19:01 Troponin I 0.02 (0-0.03) ng/mL - ABG Interpretation ABG results: PT/INR, D-dimer PT 30.2 Seconds (9.4-12.1) H D 09/26/17 03:53 Consult Discharge Plan - Plan Referrals: Ginny Fischer CNP [Primary Care Provider] - 10/02/17 1:00 pm ()
[2017-09-27] MEDS: Ipratropium/Albuterol Neb 3 ML IH SCH ×4 (04:03→22:41)
[2017-09-27 08:02] LABS: INR 2.7; Prothrombin Time 29.9 Seconds (9.4-12.1)
[2017-09-27] MEDS: Loratadine 10 MG TABLET PO SCH (09:15)
[2017-09-27] MEDS: Aspirin 81 MG TAB.CHEW PO SCH (09:15)
[2017-09-27] MEDS: Levofloxacin 750 MG/150 ML 750 MG/150 ML BAG IVPB SCH (09:16)
[2017-09-27] MEDS: MethylPREDNISolone 40 MG/ML VIAL IVP SCH ×2 (09:16→17:20)
[2017-09-27] MEDS: Furosemide 20 MG/2 ML VIAL IVP SCH ×2 (09:16→17:19)
[2017-09-27] MEDS: Beclomethasone 80mcg MDI IH SCH ×2 (10:32→22:41)
--- NOTE | 2017-09-27 15:11 | Internal Med Progress Note ---
Date of Encounter: 09/27/17 Time of Encounter: 15:09 - Assessment and plan (1) Acute diastolic (congestive) heart failure Current Visit: Yes Status: Acute Assessment and plan: Improving slowly Echo from 05/28 showed mild diastolic dysfunction and normal LVEF will switch to PO lasix today Cont all other home meds (2) Chest pain Current Visit: No Status: Acute Assessment and plan: due to pneumonia and CHF exacerbation resumed home meds ASA, Metoprolol Troponin x 3 negative Qualifiers: Chest pain type: chest pain on breathing Qualified Code(s): R07.1 - Chest pain on breathing (3) Hypertension Current Visit: No Status: Chronic Assessment and plan: stable with home meds Qualifiers: Hypertension type: essential hypertension Qualified Code(s): I10 - Essential (primary) hypertension (4) COPD exacerbation Current Visit: Yes Status: Acute Assessment and plan: Started tapering IV steroids + Bronchodilators She does use 2 Lit O2 at QHS at home (5) Pneumonia Current Visit: Yes Status: Acute Assessment and plan: Mostly bacterial cont empirical abx Levaquin Qualifiers: Pneumonia type: due to unspecified organism Laterality: bilateral Lung location: lower lobe of lung Qualified Code(s): J18.9 - Pneumonia, unspecified organism (6) Atrial fibrillation Current Visit: Yes Status: Chronic Assessment and plan: stable and rate controlled on coumadin for anti coag Qualifiers: Atrial fibrillation type: paroxysmal Qualified Code(s): I48.0 - Paroxysmal atrial fibrillation (7) CAD (coronary artery disease) Current Visit: Yes Status: Chronic Assessment and plan: stable resumed home meds Qualifiers: Coronary Disease-Associated Artery/Lesion type: [place] artery [place] vs. transplanted heart: [place] heart Associated angina: without angina Qualified Code(s): I25.10 - Atherosclerotic heart disease of [place] coronary artery without angina pectoris - Subjective Interval history: Ms. Lui is a 77 year old female with a relevant past medical history of CHF, hypertension, COPD, atrial fibrillation on Coumadin being managed by [facility], mitral stenosis, CVA, and hyperlipidemia pt presented to ER with progressively worsening SOB / ARGUETA. She does c/o cough with yellowish expectoration. Pt was admitted in the hospital and started her on IV abx, O2, steroids and IV diuresis. Her symptoms started improving slowly. She denied any CP today. Her SOB also better today. Feels little better today. But still not back to baseline yet. - Constitutional Vitals: Temp Pulse Resp BP Pulse Ox 97.6 F 77 18 141/67 96 09/27/17 06:32 09/27/17 06:32 09/27/17 10:32 09/27/17 06:32 09/27/17 10:32 General appearance: Present: A&O X 3, pleasant, answers questions appropriately - Head Head exam: Present: atraumatic, normal inspection - Neck Neck exam general surgery: Present: supple - Respiratory Respiratory exam: Present: decreased breath sounds, wheezes (moderate). Absent : rales, respiratory distress, rhonchi - Cardiovascular Cardiovascular exam: Present: RRR, +S1, +S2. Absent: systolic murmur - GI/Abdominal GI/Abdominal exam: Present: normal bowel sounds, soft. Absent: rebound, rigid, tenderness - Extremities Exam Extremities exam: Absent: calf tenderness, pedal edema, tenderness - Back Exam Back exam: Absent: CVA tenderness (L), CVA tenderness (R) - Neurological Exam Neurological exam: Present: alert, oriented X3 - Psychiatric Psychiatric exam: Present: normal affect, normal mood Internal Medicine: Result - Labs CBC & Chem 7: 09/26/17 03:53 09/26/17 03:53 - ABG Interpretation ABG results: PT/INR, D-dimer PT 29.9 Seconds (9.4-12.1) H 09/27/17 07:37 Consult Discharge Plan - Plan Referrals: Ginny Fischer CNP [Primary Care Provider] - 10/02/17 1:00 pm ()
[2017-09-27] MEDS ORDERED: *HR* Warfarin 2.5 MG TABLET PO ONE (18:00)
[2017-09-27] MEDS ORDERED: MethylPREDNISolone 40 MG/ML VIAL IVP SCH (21:00)
[2017-09-28 03:40] LABS: INR 2.3; Prothrombin Time 24.8 Seconds (9.4-12.1)
[2017-09-28 03:46] LABS: BUN/Creatinine Ratio 41 (6-26); Blood Urea Nitrogen 39 mg/dL (7-20); Calcium 8.8 mg/dL (8.6-10.8); Carbon Dioxide 31 mEq/L (19-29); Chloride 102 mEq/L (98-109); Glucose 111 mg/dL (70-99); Magnesium 2.3 mg/dL (1.6-2.6); Osmolality,Calculated 302 (280-300); Potassium 4.5 mEq/L (3.5-4.5); eGFR For African Americans > 60 (> 60); eGFR For Non-African Americans 57 (> 60)
[2017-09-28 03:47] LABS: Sodium 141 mEq/L (136-145)
[2017-09-28] MEDS: Ipratropium/Albuterol Neb 3 ML IH SCH ×2 (04:04→10:26)
[2017-09-28 09:24] VITALS: BP 130/69
[2017-09-28] MEDS ORDERED: levoFLOXacin 750 MG TABLET PO SCH (09:30)
[2017-09-28] MEDS: Loratadine 10 MG TABLET PO SCH (09:34)
[2017-09-28] MEDS: Aspirin 81 MG TAB.CHEW PO SCH (09:34)
[2017-09-28] MEDS: Furosemide 20 MG/2 ML VIAL IVP SCH (09:35)
[2017-09-28] MEDS: MethylPREDNISolone 40 MG/ML VIAL IVP SCH (09:35)
[2017-09-28] MEDS: Levofloxacin 750 MG/150 ML 750 MG/150 ML BAG IVPB SCH (09:57)
[2017-09-28] MEDS: Beclomethasone 80mcg MDI IH SCH (10:26)
--- NOTE | 2017-09-28 10:29 | Discharge Summary ---
Date of Encounter: 09/28/17 Time of Encounter: 10:26 - Discharge Diagnosis (1) Acute diastolic (congestive) heart failure Priority: Primary Status: Acute (2) Chest pain Priority: Primary Status: Acute Qualifiers: Chest pain type: chest pain on breathing Qualified Code(s): R07.1 - Chest pain on breathing (3) COPD exacerbation Priority: Primary Status: Acute (4) Pneumonia Priority: Primary Status: Acute Qualifiers: Pneumonia type: due to unspecified organism Laterality: bilateral Lung location: lower lobe of lung Qualified Code(s): J18.9 - Pneumonia, unspecified organism (5) Atrial fibrillation Priority: Secondary Status: Chronic Qualifiers: Atrial fibrillation type: paroxysmal Qualified Code(s): I48.0 - Paroxysmal atrial fibrillation (6) CAD (coronary artery disease) Priority: Secondary Status: Chronic Qualifiers: Coronary Disease-Associated Artery/Lesion type: [place] artery [place] vs. transplanted heart: [place] heart Associated angina: without angina Qualified Code(s): I25.10 - Atherosclerotic heart disease of [place] coronary artery without angina pectoris (7) Hypertension Priority: Secondary Status: Chronic Qualifiers: Hypertension type: essential hypertension Qualified Code(s): I10 - Essential (primary) hypertension - Discharge Medications Prescriptions: PredniSONE [Deltasone] 40 mg PO DAILY #10 tablet Home Medications: Albuterol Neb [Proventil Neb] 2.5 mg IH Q4H PRN 08/05/16 [History] Albuterol Sulfate [Proair Hfa] 2 puff IH Q4H PRN 08/05/16 [History] Beclomethasone Diprop 80mcg [QVAR 80 mcg] 1 puff IH BID 08/05/16 [History] Fluticasone Propionate Nasal [Flonase] 50 mcg NS DAILY PRN 08/05/16 [History] Lisinopril [Zestril] 10 mg PO DAILY 08/05/16 [History] Loratadine [Claritin] 10 mg PO DAILY 08/05/16 [History] Oxygen 2 l NS AD 08/05/16 [History] Potassium Chloride [K-Tab ER] 10 meq PO DAILY 08/05/16 [History] Tiotropium G[place] [Spiriva Respimat] 2 puff IH DAILY 08/05/16 [History] Aspirin 81 mg PO DAILY 10/10/16 [History] Warfarin [Coumadin] 5 mg PO SUMOTUWETHFR 10/10/16 [History] Metoprolol [Lopressor] 25 mg PO BID #60 tablet 11/21/16 [Rx] Omeprazole [PriLOSEC] 20 mg PO DAILY 09/25/17 [History] Warfarin [Coumadin] 2.5 mg PO SA 09/25/17 [History] Furosemide [Lasix] 40 mg PO DAILY #0 09/28/17 [Rx] PredniSONE [Deltasone] 40 mg PO DAILY #10 tablet 09/28/17 [Rx] levoFLOXacin [Levaquin] 500 mg PO DAILY 4 Days #0 09/28/17 [Rx] Allergies/Adverse Reactions: 3 Allergy/AdvReac Type Severity Reaction Status Date / Time Cefaclor [From Ceclor] Allergy Difficulty Verified 09/25/17 07:33 Breathing cephalexin Allergy Difficulty Verified 09/25/17 07:33 Breathing doxycycline Allergy Anaphylaxis Verified 09/25/17 07:33 Penicillins Allergy Hives Verified 09/25/17 07:33 Sulfa (Sulfonamide Allergy Anaphylaxis Verified 09/25/17 07:33 Antibiotics) Date of admission: 09/25/17 09:12 Primary care physician: Ginny Fischer CNP - Patient Status Disposition: Home, Self-Care Condition: Good Overall status at discharge: patient is back to baseline - Discharge Instructions Follow Up With: Ginny Fischer CNP [Primary Care Provider] - 10/02/17 1:00 pm () Additional Instructions: Please continue taking Levaquin abx for another 5 days.. You do have Rx at home - Diet and Activity Activity: increase activity as tolerated, wear oxygen at all times Diet: low salt diet Hospital course: Ms. Lui is a 77 year old female with a relevant past medical history of CHF, hypertension, COPD, atrial fibrillation on Coumadin being managed by [facility], mitral stenosis, CVA, and hyperlipidemia pt presented to ER with progressively worsening SOB / ARGUETA. She does c/o cough with yellowish expectoration. Pt was admitted in the hospital and started her on empirical IV abx Levofloxacin , O2, and high dose IV steroids and IV diuresis. Her symptoms started improving slowly. Today she is back to baseline. Breathing comfortably on 2 lit O2. Swithced to PO lasix and PO steroids. Recommed to continue PO abx Levaquin for another 4 days. Will d/c her to home today in stable condition - Time Spent with Patient Total time spent providing and/or coordinating discharge services: - Constitutional Vitals: Temp Pulse Resp BP Pulse Ox 97.6 F 67 16 130/69 98 09/28/17 07:10 09/28/17 07:10 09/28/17 07:10 09/28/17 07:10 09/28/17 07:10 General appearance: Present: A&O X 3, pleasant, answers questions appropriately - Head Head exam: Present: atraumatic, normal inspection - Respiratory Respiratory exam: Present: decreased breath sounds, wheezes (mild). Absent: rales, respiratory distress, rhonchi - Cardiovascular Cardiovascular exam: Present: RRR, +S1, +S2. Absent: systolic murmur - GI/Abdominal GI/Abdominal exam: Present: normal bowel sounds, soft. Absent: rebound, rigid, tenderness - Extremities Exam Extremities exam: Present: pedal edema (trace). Absent: calf tenderness, tenderness - Back Exam Back exam: Absent: CVA tenderness (L), CVA tenderness (R) - Psychiatric Psychiatric exam: Present: normal affect, normal mood
[2017-09-28] MEDS ORDERED: *HR* Warfarin 3 MG TABLET PO ONE (18:00)
[2017-09-29] MEDS ORDERED: *HR* Warfarin 2.5 MG TABLET PO SCH (18:00)
== END 2017-09-28 13:12 | disposition home or self-care (01) | DRG 291 ==
LOC: 2ANU 01:31 → EMEROO 01:31 → 2ANU 03:46 → SUATTDRO 09:12
PROVIDERS: ADMIT Hospitalist; ATTEND Family Medicine

== ENCOUNTER 2019-03-10 13:54 | Inpatient (IN) ==
[2019-03-10] MEDS ORDERED: 0.9 % Sodium Chloride 1,000 ML IVC ONE (14:15)
[2019-03-10] MEDS ORDERED: methylPREDNISolone 125 MG/2 ML VIAL IVP ONE (14:25)
[2019-03-10] MEDS ORDERED: cefTRIAXone 1,000 MG in Water for inj. (sterile) 20 ML 10 ML IVP STA (14:32)
[2019-03-10] MEDS ORDERED: Azithromycin 500 MG in D5% in Water 250 ML IVPB STA (14:33)
--- NOTE | 2019-03-10 15:09 | Emergency Department Note ---
Disposition Clinical Impression: Acute exacerbation of chronic obstructive airways disease, Elevated troponin, YONI (acute kidney injury) Anemia Qualifiers: Anemia type: unspecified type Qualified Code(s): D64.9 - Anemia, unspecified Mitral valve stenosis Qualifiers: Cardiac valve disease etiology: rheumatic Qualified Code(s): I05.0 - Rheumatic mitral stenosis Disposition: Admitted As Inpatient Condition: Good Time of Disposition: 16:48 General Adult HPI - General Chief complaint: ED Shortness of Breath/Dyspnea Stated complaint: Pneumonia,A-Fib Time Seen by Provider: 03/10/19 14:05 Source: patient, family Limitations: no limitations Nursing Notes Reviewed: Yes Vital Signs Reviewed: Yes - History of Present Illness HPI Narrative: Patient with history of A. fib who is currently on Coumadin for this as well as CHF and COPD. 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 She was placed on Levaquin as well as a steroid pack with no re lief of the symptoms. They also increase her Lasix at that time. Family stating that her lower extremity edema has been getting worse but it does appear to be down at this time. Patient does have a history of mitral stenosis that she is supposed to go to [facility] for a balloon dilation however this is not scheduled until April 11. Pain Scale: 0 - Related Data Home Medications Medication Instructions Recorded Confirmed Albuterol Neb [Proventil Neb] 2.5 mg IH Q4H PRN 08/05/16 03/10/19 Albuterol Sulfate [Proair Hfa] 2 puff IH Q4H PRN 08/05/16 03/10/19 Fluticasone Propionate Nasal 1 spray NS 2-3XD PRN 08/05/16 03/10/19 [Flonase] Loratadine [Claritin] 10 mg PO DAILY 08/05/16 03/10/19 Oxygen 2 l NS AD 08/05/16 03/10/19 Potassium Chloride [K-Tab ER] 10 meq PO DAILY 08/05/16 03/10/19 Aspirin 81 mg PO DAILY 10/10/16 03/10/19 Warfarin [Coumadin] 5 mg PO MOWEFR 10/10/16 03/10/19 Warfarin [Coumadin] 2.5 mg PO SUTUTHSA 09/25/17 03/10/19 Budesonide/Formoterol 160/4.5 2 puff IH BIDR 03/10/19 03/10/19 [Symbicort 160/4.5] Guaifenesin [Mucinex] 600 mg PO BID PRN 03/10/19 03/10/19 Lisinopril [Zestril] 10 mg PO DAILY 03/10/19 03/10/19 Metoprolol [Lopressor] 50 mg PO BID 03/10/19 03/10/19 Previous Rx's Medication Instructions Recorded Furosemide [Lasix] 40 mg PO DAILY #0 09/28/17 Allergies Allergy/AdvReac Type Severity Reaction Status Date / Time Cefaclor [From [facility]] Allergy Difficulty Verified 03/10/19 20:19 Breathing cephalexin Allergy Difficulty Verified 03/10/19 20:19 Breathing doxycycline Allergy Anaphylaxis Verified 03/10/19 20:19 Penicillins Allergy Hives Verified 03/10/19 20:19 Sulfa (Sulfonamide Allergy Anaphylaxis Verified 03/10/19 20:19 Antibiotics) All systems ED: reviewed and negative except as stated. Review of Systems: As Per HPI Constitutional: Reports: chills. Denies: fever Cardiovascular: Reports: dyspnea on exertion. Denies: chest pain, palpitations, syncope Respiratory: Reports: cough, dyspnea, sputum production Gastrointestinal: Denies: abdominal pain, nausea, vomiting, diarrhea, hematemesis, melena, hematochezia Musculoskeletal: Denies: back pain, neck pain Past Medical History - Past Medical History Attestation: Yes The following information was validated with the patient. Source: patient Medical history: Reports: asthma, atrial fibrillation, CHF, COPD, CVA, hypertension, valvular heart disease Surgical history: Reports: appendectomy, cholecystectomy, hysterectomy Psychiatric history: Reports: no psych history - Social History Smoking Status: Never smoker Smokeless Tobacco Status: No Alcohol use: Reports: none Drug use: Reports: none Physical Exam - General Limitations: no limitations General appearance: alert, in distress (Appears dyspneic.) - Head Head exam: atraumatic, normocephalic, normal inspection - Eye Eye exam: Present: normal appearance, PERRL, EOMI - ENT ENT exam: normal exam, normal oropharynx, mucous membranes moist - Neck Neck exam: Present: normal inspection, full ROM, trachea midline - Chest Chest inspection: Present: normal inspection, symmetric chest wall rise - Respiratory Respiratory exam: Present: normal lung sounds bilaterally, other (Coarse throughout) - Cardiovascular Cardiovascular exam: Present: tachycardia, irregular rhythm, systolic murmur - Abdominal Exam Abdominal exam: Present: soft, Non-Tender. Absent: tenderness, distention, guarding, rebound, rigidity, organomegaly - Extremities Exam Extremities exam: Present: normal inspection, full ROM, normal capillary refill, pedal edema. Absent: tenderness, calf tenderness - Neurological Exam Neurological exam: Present: alert, oriented X3 - Psychiatric Psychiatric exam: Present: normal affect, normal mood - Skin Skin exam: Present: warm, dry, intact, normal color. Absent: rash, cyanosis, diaphoresis Course Course Narrative: Female patient with increasing dyspnea on exertion. She was given an increased dose of her Lasix for 3 days with no relief of her symptoms. She was also placed on Levaquin and steroids. States that her symptoms have been getting worse. 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 However she states that her symptoms are getting worse. She denies any chest pain but does report shortness of breath. Patient wears oxygen at home at night. This is 2 L. She has been wearing it during the day today saying very to hypoxia. She does report a cough that is productive. She denies any fevers but does report occasional chills. Does have some edema to her lower extremities. States that this is actually getting better than what it was. Lung sounds are coarse throughout. Initial vitals showed hypotension while in triage however once repeated when she is back in the room this had resolved. She was given a liter of fluid basic labs were reported and she was found to be anemic. Her Hemoccult was negative. Did have a AK as well as a mildly elevated troponin of 0.04. This is likely secondary to demand ischemia. She is again not reporting any chest pain and there are no signs of acute ischemia on her EKG. We will admit patient to the hospital for COPD exacerbation as well as a YONI and anemia. - Consultations Consultation #1: Dr Bauer accepted patient in stable condition. Time: 15:44 Vital Signs Temperature 98.9 F 03/10/19 13:59 Pulse Rate 109 03/10/19 13:59 Respiratory Rate 18 03/10/19 13:59 Blood Pressure 88/59 03/10/19 13:59 O2 Sat by Pulse Oximetry 89 03/10/19 13:59 Temperature 98.9 F 03/10/19 13:59 Pulse Rate 109 03/10/19 15:35 Respiratory Rate 22 03/10/19 15:35 Blood Pressure 123/83 03/10/19 15:35 O2 Sat by Pulse Oximetry 97 03/10/19 15:35 Oxygen Delivery Oxygen Delivery Room Air Medical Decision Making - Medical Records Medical records reviewed: Yes I reviewed the patient's medical records. - Lab Data Lab results reviewed: Yes I reviewed the patient's lab results. Result diagrams: 03/11/19 05:36 03/11/19 05:36 Lab Results 03/10/19 03/10/19 03/10/19 Range/Units 14:47 14:47 14:47 WBC 8.7 (4.3-11.1) K/mcL RBC 3.42 L (3.82-4.97) M/mcL Hgb 9.1 L (11.5-15.4) g/dL Hct 30.9 L (35.3-44.9) % MCV 90.4 (83.0-100.0) fL MCH 26.6 L (28.0-33.3) pg MCHC 29.4 L (31.6-35.5) g/dL RDW 17.0 H (11.5-14.5) % Plt Count 310 (140-400) K/mcL MPV 11.0 (9.4-12.4) fL Immature Gran % 0.5 (0-4) % Seg Neutrophils % 82.9 % Lymphocytes % 8.2 % Monocytes % 7.0 % Eosinophils % 0.8 % Basophils % 0.6 % Neutrophils # 7.2 (1.6-8.9) K/mcL Lymphocytes # 0.7 (0.6-4.6) K/mcL Monocytes # 0.6 (0.0-1.3) K/mcL Eosinophils # 0.1 (0.0-0.6) K/mcL Basophils # 0.1 (0.0-0.2) K/mcL PT 37.0 H (9.4-12.1) Seconds INR 3.3 APTT 48.4 H (26.0-36.0) Seconds Sodium (136-145) mEq/L Potassium (3.5-5.1) mEq/L Chloride (98-107) mEq/L Carbon Dioxide (23-29) mEq/L BUN (8-23) mg/dL Creatinine (0.60-1.20) mg/dL Est GFR ( Amer) (> 60) Est GFR (Non-Af Amer) (> 60) BUN/Creatinine Ratio (6-26) Glucose (70-105) mg/dL Calculated Osmolality (280-300) Lactic Acid 0.8 (0.5-2.2) mmol/L Calcium (8.6-10.3) mg/dL Magnesium (1.6-2.6) mg/dL Total Bilirubin (0.3-1.0) mg/dL AST (13-39) Units/L ALT (7-52) Units/L Alkaline Phosphatase (34-104) Units/L Troponin I (< 0.04) ng/mL Serum Total Protein (6.4-8.9) g/dL Albumin (3.5-5.7) g/dL Globulin (2.4-3.5) g/dL Albumin/Globulin Ratio (1.1-2.2) Urine Color (Yellow) Urine Clarity (Clear) Urine pH (5.0-8.0) pH Units Ur Specific [place] (1.010-1.025) Urine Protein (Neg-Trace) mg/dL Urine Glucose (UA) (Normal) mg/dL Urine Ketones (Negative) mg/dL Urine Blood (Negative) Urine Nitrite (Negative) Urine Bilirubin (Negative) Urine Urobilinogen (Normal) mg/dL Ur Leukocyte Esterase (Negative) Urine Microscopic RBC (0-3) per hpf Urine Microscopic WBC (0-3) per hpf Ur Squamous Epith Cells (None-Few) per lpf Urine Bacteria (None-Few) per hpf Hyaline Casts (None-Few) per lpf Ur Culture Indicated? (NO) Stool Occult Bld Scrn (Negative) 03/10/19 03/10/19 03/10/19 Range/Units 14:47 14:47 14:57 WBC (4.3-11.1) K/mcL RBC (3.82-4.97) M/mcL Hgb (11.5-15.4) g/dL Hct (35.3-44.9) % MCV (83.0-100.0) fL MCH (28.0-33.3) pg MCHC (31.6-35.5) g/dL RDW (11.5-14.5) % Plt Count (140-400) K/mcL MPV (9.4-12.4) fL Immature Gran % (0-4) % Seg Neutrophils % % Lymphocytes % % Monocytes % % Eosinophils % % Basophils % % Neutrophils # (1.6-8.9) K/mcL Lymphocytes # (0.6-4.6) K/mcL Monocytes # (0.0-1.3) K/mcL Eosinophils # (0.0-0.6) K/mcL Basophils # (0.0-0.2) K/mcL PT (9.4-12.1) Seconds INR APTT (26.0-36.0) Seconds Sodium 141 (136-145) mEq/L Potassium 4.5 (3.5-5.1) mEq/L Chloride 105 (98-107) mEq/L Carbon Dioxide 30 H (23-29) mEq/L BUN 34 H (8-23) mg/dL Creatinine 1.24 H (0.60-1.20) mg/dL Est GFR ( Amer) 50 L (> 60) Est GFR (Non-Af Amer) 42 L (> 60) BUN/Creatinine Ratio 27 H (6-26) Glucose 109 H (70-105) mg/dL Calculated Osmolality 300 (280-300) Lactic Acid (0.5-2.2) mmol/L Calcium 9.1 (8.6-10.3) mg/dL Magnesium 2.3 (1.6-2.6) mg/dL Total Bilirubin 0.5 (0.3-1.0) mg/dL AST 25 (13-39) Units/L ALT 37 (7-52) Units/L Alkaline Phosphatase 169 H (34-104) Units/L Troponin I 0.04 H* (< 0.04) ng/mL Serum Total Protein 6.5 (6.4-8.9) g/dL Albumin 3.6 (3.5-5.7) g/dL Globulin 2.9 (2.4-3.5) g/dL Albumin/Globulin Ratio 1.2 (1.1-2.2) Urine Color Yellow (Yellow) Urine Clarity Clear (Clear) Urine pH 6.0 (5.0-8.0) pH Units Ur Specific [place] 1.018 (1.010-1.025) Urine Protein Negative (Neg-Trace) mg/dL Urine Glucose (UA) Normal (Normal) mg/dL Urine Ketones Negative (Negative) mg/dL Urine Blood Negative (Negative) Urine Nitrite Negative (Negative) Urine Bilirubin Negative (Negative) Urine Urobilinogen Normal (Normal) mg/dL Ur Leukocyte Esterase Small H (Negative) Urine Microscopic RBC 0-3 (0-3) per hpf Urine Microscopic WBC 3-5 H (0-3) per hpf Ur Squamous Epith Cells Many H (None-Few) per lpf Urine Bacteria None Seen (None-Few) per hpf Hyaline Casts None Seen (None-Few) per lpf Ur Culture Indicated? NO. A (NO) Stool Occult Bld Scrn (Negative) 03/10/19 Range/Units 15:57 WBC (4.3-11.1) K/mcL RBC (3.82-4.97) M/mcL Hgb (11.5-15.4) g/dL Hct (35.3-44.9) % MCV (83.0-100.0) fL MCH (28.0-33.3) pg MCHC (31.6-35.5) g/dL RDW (11.5-14.5) % Plt Count (140-400) K/mcL MPV (9.4-12.4) fL Immature Gran % (0-4) % Seg Neutrophils % % Lymphocytes % % Monocytes % % Eosinophils % % Basophils % % Neutrophils # (1.6-8.9) K/mcL Lymphocytes # (0.6-4.6) K/mcL Monocytes # (0.0-1.3) K/mcL Eosinophils # (0.0-0.6) K/mcL Basophils # (0.0-0.2) K/mcL PT (9.4-12.1) Seconds INR APTT (26.0-36.0) Seconds Sodium (136-145) mEq/L Potassium (3.5-5.1) mEq/L Chloride (98-107) mEq/L Carbon Dioxide (23-29) mEq/L BUN (8-23) mg/dL Creatinine (0.60-1.20) mg/dL Est GFR ( Amer) (> 60) Est GFR (Non-Af Amer) (> 60) BUN/Creatinine Ratio (6-26) Glucose (70-105) mg/dL Calculated Osmolality (280-300) Lactic Acid (0.5-2.2) mmol/L Calcium (8.6-10.3) mg/dL Magnesium (1.6-2.6) mg/dL Total Bilirubin (0.3-1.0) mg/dL AST (13-39) Units/L ALT (7-52) Units/L Alkaline Phosphatase (34-104) Units/L Troponin I (< 0.04) ng/mL Serum Total Protein (6.4-8.9) g/dL Albumin (3.5-5.7) g/dL Globulin (2.4-3.5) g/dL Albumin/Globulin Ratio (1.1-2.2) Urine Color (Yellow) Urine Clarity (Clear) Urine pH (5.0-8.0) pH Units Ur Specific [place] (1.010-1.025) Urine Protein (Neg-Trace) mg/dL Urine Glucose (UA) (Normal) mg/dL Urine Ketones (Negative) mg/dL Urine Blood (Negative) Urine Nitrite (Negative) Urine Bilirubin (Negative) Urine Urobilinogen (Normal) mg/dL Ur Leukocyte Esterase (Negative) Urine Microscopic RBC (0-3) per hpf Urine Microscopic WBC (0-3) per hpf Ur Squamous Epith Cells (None-Few) per lpf Urine Bacteria (None-Few) per hpf Hyaline Casts (None-Few) per lpf Ur Culture Indicated? (NO) Stool Occult Bld Scrn Negative (Negative) - Radiology Data Radiology results reviewed: Yes I reviewed the patient's radiology results. Chest X-Ray 03/10/19 14:20 IMPRESSION: COPD with stable bilateral pleural effusions versus pleural adhesions. D/ / 03/10/2019 14:46:14 Jordan Guerra MD / [facility] Interpreting Provider: Jordan Guerra MD - EKG Data EKG #1 EKG attestation: Yes I reviewed and interpreted this EKG. EKG results narrative: A. fib at a rate of 116. OR interval was not measured. QRS duration is 97. QT is 351. QTC is 475. No signs of acute ischemia. Good R-wave progression. No signs of WPW or [place]. No significant change from previous EKG dated 09/25/2017. Attestation Statement - Attestation Attestation: Resident Attestation: I examined this patient and my medical decision making was reviewed with the Resident Physician. I agree with the documented findings, disposition and treatment plan as described except to the extent set forth below. We independently had [id number] contact with the patient. Patient presenting for evaluation of shortness of breath cough and sputum production. Patient with frequent infections. Underwent a significant lung infection as a child and has had palpitations since. Patient will undergo further evaluation for possible pneumonia. Symmetrically, no acute distress, mild anterior and posterior wheezing.
[2019-03-10 15:14] LABS: Bilirubin,Urine Negative (Negative); Blood,Urine Negative (Negative); Clarity,Urine Clear (Clear); Color,Urine Yellow (Yellow); Glucose,Urine (UA) Normal (Normal); Ketones,Urine Negative (Negative); Leukocyte Esterase,Urine Small (Negative); Nitrite,Urine Negative (Negative); Protein,Urine Negative (Neg-Trace); Specific Gravity,Urine 1.018 (1.010-1.025); Urobilinogen,Urine Normal (Normal)
[2019-03-10 15:15] LABS: Basophils # 0.1 K/mcL (0.0-0.2); Basophils % 0.6 %; Eosinophils # 0.1 K/mcL (0.0-0.6); Eosinophils % 0.8 %; Hematocrit 30.9 % (35.3-44.9); Hemoglobin 9.1 g/dL (11.5-15.4); INR 3.3; Immature Granulocytes % 0.5 % (0-4); Lymphocytes # 0.7 K/mcL (0.6-4.6); Lymphocytes % 8.2 %; Mean Corpuscular HGB Conc 29.4 g/dL (31.6-35.5); Mean Corpuscular Hemoglobin 26.6 pg (28.0-33.3); Mean Corpuscular Volume 90.4 fL (83.0-100.0); Monocytes # 0.6 K/mcL (0.0-1.3); Neutrophils # 7.2 K/mcL (1.6-8.9); Platelet Count 310 K/mcL (140-400); Red Blood Count 3.42 M/mcL (3.82-4.97); Segmented Neutrophils % 82.9 %
[2019-03-10 15:17] LABS: Bacteria,Urine None Seen per hpf (None-Few); Hyaline Casts,Urine None Seen per lpf (None-Few); RBC,Urine 0-3 per hpf (0-3); Squamous Epithelial Cell,Urine Many per lpf (None-Few)
[2019-03-10 15:18] LABS: Activated Partial Thrombo Time 48.4 Seconds (26.0-36.0)
[2019-03-10] MEDS ORDERED: Ipratropium/Albuterol Neb 3 ML IH ONE (15:18)
[2019-03-10 15:25] LABS: Albumin 3.6 g/dL (3.5-5.7); Albumin/Globulin Ratio 1.2 (1.1-2.2); Bilirubin,Total 0.5 mg/dL (0.3-1.0); Calcium 9.1 mg/dL (8.6-10.3); Globulin 2.9 g/dL (2.4-3.5); Potassium 4.5 mEq/L (3.5-5.1); Total Protein 6.5 g/dL (6.4-8.9)
[2019-03-10 15:27] LABS: Magnesium 2.3 mg/dL (1.6-2.6)
[2019-03-10 15:31] LABS: Troponin I 0.04 ng/mL (< 0.04)
--- NOTE | 2019-03-10 18:41 | Internal Med History&Physical ---
Date of Encounter: 03/10/19 Time of Encounter: 18:37 Internal Medicine - H&P: HPI Chief complaint: shortess of breath Admitted From: Home Plans for Post Hospital Care: Home History of present illness: Ms. Lui is a 78 year old female with past medical history of COPD (non- smokers emphysema), chronic respiratory failure on 2L NC, never smoked, CAD, CHF, HTN, mitral stenosis, afib who presents with worsening SOB. Pt states she has had progressive SOB in last 3 days. States she ot SOB with little activity. Reports having palpitations but denies chest pain. Positive cough but with little yellowish mucous. She denies fever but states she gets chills. Tehn later reported subjective fever and states she took tylenol but did not heck her temp at home. In ED WBC 8.7, INR 3.3, troponin 0.04. Chest x ray XR/XR chest 2V IMPRESSION: COPD with stable bilateral pleural effusions versus pleural adhesions. Past Med Surg Social Fam HX - Past Medical History Medical history: asthma, atrial fibrillation, CHF, COPD, CVA, hypertension, valvular heart disease Additional medical history: mitral stenosis, pulmonary nodule Psychiatric history: no psych history - Past Surgical History Surgical History: appendectomy, cholecystectomy, hysterectomy Additional surgical history: d&c, dental extractions, L lung lobectomy 1949 - Social History Smoking Status: Never smoker Smokeless Tobacco Status: No Alcohol use: none Drug use: none - Family History Father Living Status: Hx Family Cardiac Disorders: Yes Mother Living Status: Hx Family Endocrine Disorder: Yes Internal Medicine - H&P: Meds Albuterol Neb [Proventil Neb] 2.5 mg IH Q4H PRN 08/05/16 [History] Albuterol Sulfate [Proair Hfa] 2 puff IH Q4H PRN 08/05/16 [History] Fluticasone Propionate Nasal [Flonase] 50 mcg NS DAILY PRN 08/05/16 [History] Lisinopril [Zestril] 10 mg PO DAILY 08/05/16 [History] Loratadine [Claritin] 10 mg PO DAILY 08/05/16 [History] Oxygen 2 l NS AD 08/05/16 [History] Potassium Chloride [K-Tab ER] 10 meq PO DAILY 08/05/16 [History] Aspirin 81 mg PO DAILY 10/10/16 [History] Warfarin [Coumadin] 5 mg PO QMWF 10/10/16 [History] Warfarin [Coumadin] 2.5 mg PO 4XW 09/25/17 [History] Furosemide [Lasix] 40 mg PO DAILY #0 09/28/17 [Rx] Benzonatate [Tessalon] 100 mg PO TID PRN 03/10/19 [History] Budesonide/Formoterol 160/4.5 [Symbicort 160/4.5] 2 puff IH BIDR 03/10/19 [History] Guaifenesin [Mucinex] 600 mg PO BID PRN 03/10/19 [History] Metoprolol [Lopressor] 50 mg PO BID 03/10/19 [History] Allergy/AdvReac Type Severity Reaction Status Date / Time Cefaclor [From [facility]] Allergy Difficulty Verified 09/25/17 07:33 Breathing cephalexin Allergy Difficulty Verified 09/25/17 07:33 Breathing doxycycline Allergy Anaphylaxis Verified 09/25/17 07:33 Penicillins Allergy Hives Verified 09/25/17 07:33 Sulfa (Sulfonamide Allergy Anaphylaxis Verified 09/25/17 07:33 Antibiotics) All Systems PM: A 10-system review of systems was performed and is negative for pertinent findings except as documented above in the HPI. - Constitutional Vitals: Temp Pulse Resp BP Pulse Ox 98.9 F 109 22 108/73 97 03/10/19 13:59 03/10/19 15:35 03/10/19 17:23 03/10/19 17:23 03/10/19 16:55 General appearance: Present: mild distress, A&O X 3 Exam: . - Head Head exam: Present: atraumatic, normocephalic - Eye Eye exam: Present: PERRL, conjuntiva pink, sclera anicteric Pupils: Present: PERRL - Neck Neck exam general surgery: Present: supple, trachea midline. Absent: lymphadenopathy - Respiratory Respiratory exam: Absent: accessory muscle use, rales, rhonchi, wheezes Additional comments: crackles bilateral bases. - Cardiovascular Cardiovascular exam: Present: irregular rhythm, +S1, +S2. Absent: diastolic murmur, gallop, RRR, rubs, systolic murmur - GI/Abdominal GI/Abdominal exam: Present: normal bowel sounds, soft, no peritoneal signs. Absent: distended, tenderness - Extremities Exam Extremities exam: Present: pedal edema, warm, radial pulses palpable and symmetrical. Absent: calf tenderness, cyanotic Additional comments: trace LE edema - Neurological Exam Neurological exam: Present: CN II-XII intact, oriented X3, no focal deficits. Absent: pronater drift, facial droop, speech deficit - Skin Skin exam: Present: dry, intact Internal Med - H&P Results - Labs CBC & Chem 7: 03/10/19 14:47 03/10/19 14:47 Labs: Short CBC 03/10/19 Range/Units 14:47 WBC 8.7 (4.3-11.1) K/mcL Hgb 9.1 L (11.5-15.4) g/dL Hct 30.9 L (35.3-44.9) % Plt Count 310 (140-400) K/mcL Neutrophils # 7.2 (1.6-8.9) K/mcL BMP 03/10/19 14:47 Sodium 141 Potassium 4.5 Chloride 105 Carbon Dioxide 30 H BUN 34 H Creatinine 1.24 H Glucose 109 H Calcium 9.1 Cardiac Enzymes 03/10/19 Range/Units 14:47 Troponin I 0.04 H* (< 0.04) ng/mL Liver Function 03/10/19 Range/Units 14:47 Total Bilirubin 0.5 (0.3-1.0) mg/dL AST 25 (13-39) Units/L ALT 37 (7-52) Units/L Alkaline Phosphatase 169 H (34-104) Units/L Albumin 3.6 (3.5-5.7) g/dL Urine 03/10/19 Range/Units 14:57 Urine Color Yellow (Yellow) Urine Clarity Clear (Clear) Urine pH 6.0 (5.0-8.0) pH Units Ur Specific [place] 1.018 (1.010-1.025) Urine Protein Negative (Neg-Trace) mg/dL Urine Glucose (UA) Normal (Normal) mg/dL - Impressions ITS Impressions Chest X-Ray 03/10/19 14:20 IMPRESSION: COPD with stable bilateral pleural effusions versus pleural adhesions. D/ / 03/10/2019 14:46:14 Jordan Guerra MD / irene Interpreting Provider: Jordan Guerra MD - Assessment and Plan (1) COPD exacerbation Current Visit: No Status: Acute Assessment and plan: Will place on Duo neb scheduled Q 4hr PRN, oxygen, and steroid (2) Chronic respiratory failure Current Visit: Yes Status: Acute Assessment and plan: Continue with oxygen supplement Qualifiers: Qualified Code(s): J96.10 - Chronic respiratory failure, unspecified whether with hypoxia or hypercapnia (3) Atrial fibrillation with RVR Current Visit: No Status: Acute Assessment and plan: lopressor and warfarin (4) CAD (coronary artery disease) Current Visit: No Status: Chronic Assessment and plan: Aspirin. pt states she is not on lipid lowering medication Qualifiers: Coronary Disease-Associated Artery/Lesion type: [place] artery [place] vs. transplanted heart: [place] heart Associated angina: without angina Qualified Code(s): I25.10 - Atherosclerotic heart disease of [place] coronary artery without angina pectoris (5) Congestive heart failure due to valvular disease Current Visit: No Status: Chronic Assessment and plan: Will give trial lasix and check echo in am (6) Elevated troponin Current Visit: Yes Status: Acute Assessment and plan: mild bump. Pt denies CP. Likely due to Afib RVR and ischemic demand (7) Hypertension Current Visit: No Status: Chronic Assessment and plan: lisinopril and lopressor Qualifiers: Hypertension type: essential hypertension Qualified Code(s): I10 - Essential (primary) hypertension (8) Mitral stenosis Current Visit: Yes Status: Chronic Qualifiers: Cardiac valve disease etiology: etiology unspecified Qualified Code(s): I05.0 - Rheumatic mitral stenosis (9) YONI (acute kidney injury) Current Visit: Yes Status: Acute Assessment and plan: Will give lasix and check renal function in am. Holding lisinopril and other nephrotoxic meds. - Time Spent With Patient Total time spent is greater than 50% in coordination of care (as documented) at patient's floor/unit and/or counseling patient: Greater than 35 minutes
[2019-03-10] MEDS ORDERED: Benzonatate 100 MG CAPSULE PO PRN (18:47)
[2019-03-10] MEDS ORDERED: Albuterol 2.5 MG/3 ML NEBULIZER IH PRN (18:48)
[2019-03-10] MEDS ORDERED: Naloxone 0.4 MG/ML INJ IVP PRN (18:52)
[2019-03-10] MEDS ORDERED: Furosemide 40 MG/4 ML VIAL IVP ONE (18:56)
[2019-03-10] MEDS ORDERED: Perflutren Lipid Microsphere 1.3 ML in 0.9 % Sodium Chloride 8.7 ML IVP ONE (21:25)
[2019-03-10] MEDS ORDERED: Ipratropium/Albuterol Neb 3 ML IH SCH (23:00)
[2019-03-10] MEDS: Budesonide/Formoterol 160/4.5 1 PUFF INH IH SCH (23:39)
[2019-03-10] MEDS: MethylPREDNISolone 40 MG/ML VIAL IVP SCH (23:51)
[2019-03-11] MEDS ORDERED: *HR* Metoprolol 5 MG/5 ML VIAL IVP PRN (00:05)
[2019-03-11] MEDS ORDERED: Amiodarone Premix 360 MG/200 ML BAG IVC ONE (00:53)
[2019-03-11] MEDS ORDERED: Amiodarone Premix 150 MG/100 ML BAG IVPB ONE (00:53)
--- NOTE | 2019-03-11 01:59 | Event Note ---
Date of Encounter: 03/11/19 Time of Encounter: 00:45 Paged by nursing multiple times due to patient developing Afib with RVR. Patient did not respond to her home dose of 50 mg metoprolol. Her heart rate was ranging from 110-140s. She was complaining of shortness of breath and heart palpitations. Her blood pressure was noted to be 130/70, due to ongoing elevated heart rate lopressor push was ordered. Prior to giving lopressor blood pressure was rechecked and it was 90/60. Lopressor was held and subsequently it was decided to start amiodarone as she was sustaining afib with RVR and low blood pressure. She was moved to 2N5 as 2NE does not accommodate amiodarone drip. After receiving the intial starting bolus of amiodarone her heart rate was started to improve. She will remain on telemetry.
[2019-03-11] MEDS: Levalbuterol Neb 1.25 MG/3 ML IH SCH ×4 (03:54→22:15)
[2019-03-11 06:07] LABS: Basophils % 0.1 %; Hematocrit 30.5 % (35.3-44.9); Hemoglobin 9.1 g/dL (11.5-15.4); Immature Granulocytes % 0.8 % (0-4); Lymphocytes # 0.5 K/mcL (0.6-4.6); Lymphocytes % 4.7 %; Mean Corpuscular HGB Conc 29.8 g/dL (31.6-35.5); Mean Corpuscular Hemoglobin 26.7 pg (28.0-33.3); Mean Corpuscular Volume 89.4 fL (83.0-100.0); Monocytes # 0.1 K/mcL (0.0-1.3); Monocytes % 1.2 %; Neutrophils # 8.9 K/mcL (1.6-8.9); Platelet Count 297 K/mcL (140-400); Red Blood Count 3.41 M/mcL (3.82-4.97); Segmented Neutrophils % 93.2 %
[2019-03-11 06:15] LABS: INR 3.6; Prothrombin Time 40.1 Seconds (9.4-12.1)
[2019-03-11 06:26] LABS: Albumin 3.5 g/dL (3.5-5.7); Calcium 9.1 mg/dL (8.6-10.3); Phosphorous 4.2 mg/dL (2.7-4.5); Potassium 4.5 mEq/L (3.5-5.1)
[2019-03-11] MEDS: MethylPREDNISolone 40 MG/ML VIAL IVP SCH ×3 (06:27→18:07)
[2019-03-11] MEDS: Amiodarone Premix 360 MG/200 ML BAG IVC SCH ×2 (06:43→18:39)
[2019-03-11] MEDS: Aspirin 81 MG TAB.CHEW PO SCH (08:53)
[2019-03-11] MEDS: Loratadine 10 MG TABLET PO SCH (08:53)
[2019-03-11] MEDS: Budesonide/Formoterol 160/4.5 1 PUFF INH IH SCH ×2 (09:36→22:15)
--- NOTE | 2019-03-11 10:04 | Internal Med Progress Note ---
Hospitalist Progress Note - Encounter Date of Encounter: 03/11/19 Time of Encounter: 10:03 - Subjective Interval History: Pt denies chest pain. She states breathing was more labored last night. She was transferred to step down for close monitoring. She reports dry cough. She denies fever, chills, N/V or diarrhea. She denies abdominal pain. - Exam Vitals: Temp Pulse Resp BP Pulse Ox 97.6 F 116 16 120/99 98 03/11/19 07:17 03/11/19 08:30 03/11/19 09:36 03/11/19 09:36 03/11/19 09:36 Exam: General appearance: Present: mild distress, A&O X 3 Exam: Head exam: Present: atraumatic, normocephalic Eye exam: Present: PERRL, conjuntiva pink, sclera anicteric Pupils: Present: PERRL Neck exam general surgery: Present: supple, trachea midline. Absent: lymphadenopathy Respiratory exam: Absent: accessory muscle use, rales, rhonchi, wheezes. present: crackles bilateral bases. Cardiovascular exam: Present: irregular rhythm, positive murmur. Absent: diastolic murmur, gallop, RRR, rubs GI/Abdominal exam: Present: normal bowel sounds, soft, no peritoneal signs. Absent: distended, tenderness Extremities exam: Present: pedal edema, warm, radial pulses palpable and symmetrical. Absent: calf tenderness, cyanotic Trace LE edema Neurological exam: Present: CN II-XII intact, oriented X3, no focal deficits. Absent: pronater drift, facial droop, speech deficit Skin exam: Present: dry, intact - Assessment and Plan (1) COPD exacerbation Current Visit: No Status: Acute Assessment and Plan: Changed Duo neb scheduled Q 4hr PRN to Xoponex due to afib RVR. Will add ipratropium as well. Will continue steroids therapy. Continue Oxygen supplement. Consulting pulmonology for assistance. (2) Atrial fibrillation with RVR Current Visit: No Status: Acute Assessment and Plan: At home on lopressor and warfarin. Was started on amiodarone gtt during the night due to Afib RVR and hypotension. Will consult cardiology for assistance. Pt well known to Dr. Llamas. Pt states that Dr. Llamas had reffered her to physician at [facility] for further management and she has an appointment for "balloon procedure" next month. (3) Chronic respiratory failure Current Visit: Yes Status: Acute Assessment and Plan: Continue with oxygen supplement (4) CAD (coronary artery disease) Current Visit: No Status: Chronic Assessment and Plan: Aspirin. Pt states she is not on lipid lowering medication but could not say why. (5) Congestive heart failure due to valvular disease Current Visit: No Status: Chronic Assessment and Plan: Given lasix 40 mg IV times one 03/10/19 and pt's Cr bumped from 1.24 to 1.34. Echo EV/EV echocardiogram w enhance Impressions: Technically sub-optimal due to clinical status. Atrial fibrillation with RVR. Unable to accurately evaluate LV systolic function due to elevated heart rates. Right ventricular structure and function not well evaluated. Severe bi-atrial enlargement. Aortic valve not well visualized. Mild-moderate aortic stenosis by Doppler. Mitral valve not well visualized. Suboptimal Doppler interrogation due to elevated heart rates. Moderate mitral regurgitation. Moderate tricuspid regurgitation. Severe pulmonary hypertension. Recommend repeat study when heart rates improve. (6) Elevated troponin Current Visit: Yes Status: Acute Assessment and Plan: Mild bump in troponin. Pt denies CP. Likely due to Afib RVR and ischemic demand (7) Hypertension Current Visit: No Status: Chronic Assessment and Plan: lisinopril and lopressor (8) Mitral stenosis Current Visit: Yes Status: Chronic (9) YONI (acute kidney injury) Current Visit: Yes Status: Acute Assessment and Plan: Will give lasix and check renal function in am. Holding lisinopril and other nephrotoxic meds. DVT Prophylaxis: Warfarin - Summary of Assessment and Plan Summary of Assessment and Plan: History of present illness: Dr. Victor Ms. Lui is a 78 year old female with past medical history of COPD (non- smokers emphysema), chronic respiratory failure on 2L NC, never smoked, CAD, CHF, HTN, mitral stenosis, afib who presents with worsening SOB. Pt states she has had progressive SOB in last 3 days. States she ot SOB with little activity. Reports having palpitations but denies chest pain. Positive cough but with little yellowish mucous. She denies fever but states she gets chills. Tehn later reported subjective fever and states she took tylenol but did not heck her temp at home. - Time Spent with Patient Total time spent is greater than 50% in coordination of care (as documented) at patient's floor/unit and/or counseling patient: less than 15 minutes Plan of Care Discussed with: patient Internal Medicine: Result - Labs CBC & Chem 7: 03/11/19 05:36 03/11/19 05:36 Labs: Short CBC 03/10/19 03/11/19 Range/Units 14:47 05:36 WBC 8.7 9.5 (4.3-11.1) K/mcL Hgb 9.1 L 9.1 L (11.5-15.4) g/dL Hct 30.9 L 30.5 L (35.3-44.9) % Plt Count 310 297 (140-400) K/mcL Neutrophils # 7.2 8.9 (1.6-8.9) K/mcL BMP 03/10/19 03/11/19 14:47 05:36 Sodium 141 141 Potassium 4.5 4.5 Chloride 105 105 Carbon Dioxide 30 H 23 BUN 34 H 39 H Creatinine 1.24 H 1.34 H Glucose 109 H 169 H Calcium 9.1 9.1 Cardiac Enzymes 03/10/19 Range/Units 14:47 Troponin I 0.04 H* (< 0.04) ng/mL Liver Function 03/10/19 03/11/19 Range/Units 14:47 05:36 Total Bilirubin 0.5 (0.3-1.0) mg/dL AST 25 (13-39) Units/L ALT 37 (7-52) Units/L Alkaline Phosphatase 169 H (34-104) Units/L Albumin 3.6 3.5 (3.5-5.7) g/dL Urine 03/10/19 Range/Units 14:57 Urine Color Yellow (Yellow) Urine Clarity Clear (Clear) Urine pH 6.0 (5.0-8.0) pH Units Ur Specific [place] 1.018 (1.010-1.025) Urine Protein Negative (Neg-Trace) mg/dL Urine Glucose (UA) Normal (Normal) mg/dL - ABG Interpretation ABG results: PT/INR, D-dimer PT 40.1 Seconds (9.4-12.1) H 03/11/19 05:36 - Impressions Impressions Chest X-Ray 03/10/19 14:20 IMPRESSION: COPD with stable bilateral pleural effusions versus pleural adhesions. D/ / 03/10/2019 14:46:14 Jordan Guerra MD / irene Interpreting Provider: Jordan Guerra MD Consult Discharge Plan - Plan Referrals: Carolin Lopez MD [Primary Care Provider] - 03/20/19 11:45 am (3) Chronic respiratory failure Qualifiers: Qualified Code(s): J96.10 - Chronic respiratory failure, unspecified whether with hypoxia or hypercapnia (4) CAD (coronary artery disease) Qualifiers: Coronary Disease-Associated Artery/Lesion type: [place] artery [place] vs. transplanted heart: [place] heart Associated angina: without angina Qualified Code(s): I25.10 - Atherosclerotic heart disease of [place] coronary artery without angina pectoris (7) Hypertension Qualifiers: Hypertension type: essential hypertension Qualified Code(s): I10 - Essential (primary) hypertension (8) Mitral stenosis Qualifiers: Cardiac valve disease etiology: etiology unspecified Qualified Code(s): I05.0 - Rheumatic mitral stenosis
--- NOTE | 2019-03-11 13:51 | Electrocardiograph Report ---
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
[2019-03-11] MEDS: Azithromycin 500 MG in D5% in Water 250 ML IVPB SCH (15:16)
[2019-03-11 15:43] LABS: Chol/HDL Ratio 5.4 (0-4.9)
--- NOTE | 2019-03-11 16:04 | Pulmonology Consult Note ---
Date of Encounter: 03/12/19 Time of Encounter: 15:00 Assessment and Plan (1) COPD exacerbation Current Visit: Yes Status: Suspected I have seen the patient and she is known to me. I suspect from history and physical examination this is primarily cardiac in nature and they have explained this to the patient and her family at the bedside. I would agree with the bronchodilators and systemic steroid for now, however this can be tapered and wean off quickly since I do not feel this is primarily COPD exacerbation. 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 Reviewing Chest x-ray I would favor possibly atelectasis or scarring over pleural effusion and will check BNP level. Thank you for consultation and please call for any questions. (2) Atrial fibrillation with RVR Current Visit: No Status: Acute Patient is feeling better with the treatment to control the rate. History of Present Illness Consult date: 03/11/19 Requesting physician: Coby Victor Reason for consult: dyspnea Chief complaint: Shortness of breath History of present illness: This is very pleasant 78-year-old female with multiple medical problems and recently was seen in the office for dyspnea and I suspected her dyspnea primarily related to her underlying valvular disease and she was seen and [facility] and there was a plan to have surgery in about a month. Patient stated her dyspnea is worsen, but there is no significant change in wheezing or productive cough. Patient denies fever or chills. She was found to have tachyarrhythmia and at this time she is feeling slightly better with the treatment. Past Med Surg Social Fam HX - Past Medical History Medical history: asthma, atrial fibrillation, CHF, COPD, CVA, hypertension, valvular heart disease Additional medical history: mitral stenosis, pulmonary nodule Psychiatric history: no psych history - Past Surgical History Surgical History: appendectomy, cholecystectomy, hysterectomy Additional surgical history: d&c, dental extractions, L lung lobectomy 1949 - Social History Smoking Status: Never smoker Smokeless Tobacco Status: No Alcohol use: none Drug use: none - Family History Father Living Status: Hx Family Cardiac Disorders: Yes (Enlarged heart.) Mother Living Status: Hx Family Endocrine Disorder: Yes (Diabetes) Medications and Allergies Albuterol Neb [Proventil Neb] 2.5 mg IH Q4H PRN 08/05/16 [History] Albuterol Sulfate [Proair Hfa] 2 puff IH Q4H PRN 08/05/16 [History] Fluticasone Propionate Nasal [Flonase] 1 spray NS 2-3XD PRN 08/05/16 [History] Loratadine [Claritin] 10 mg PO DAILY 08/05/16 [History] Oxygen 2 l NS AD 08/05/16 [History] Potassium Chloride [K-Tab ER] 10 meq PO DAILY 08/05/16 [History] Aspirin 81 mg PO DAILY 10/10/16 [History] Warfarin [Coumadin] 5 mg PO MOWEFR 10/10/16 [History] Warfarin [Coumadin] 2.5 mg PO SUTUTHSA 09/25/17 [History] Furosemide [Lasix] 40 mg PO DAILY #0 09/28/17 [Rx] Budesonide/Formoterol 160/4.5 [Symbicort 160/4.5] 2 puff IH BIDR 03/10/19 [History] Guaifenesin [Mucinex] 600 mg PO BID PRN 03/10/19 [History] Lisinopril [Zestril] 10 mg PO DAILY 03/10/19 [History] Metoprolol [Lopressor] 50 mg PO BID 03/10/19 [History] Allergy/AdvReac Type Severity Reaction Status Date / Time Cefaclor [From [facility]] Allergy Difficulty Verified 03/10/19 20:19 Breathing cephalexin Allergy Difficulty Verified 03/10/19 20:19 Breathing doxycycline Allergy Anaphylaxis Verified 03/10/19 20:19 Penicillins Allergy Hives Verified 03/10/19 20:19 Sulfa (Sulfonamide Allergy Anaphylaxis Verified 03/10/19 20:19 Antibiotics) All Systems: The remainder of the systems were reviewed and are negative Physical Examination Vital Signs: Vital Signs, Last 4 Hours Pulse BP 03/11/19 13:30 114 108/77 03/11/19 12:30 118 110/78 General appearance: no acute distress Eyes: nonicteric ENT: oropharynx moist Neck: supple Effort: normal Auscultation: left: rhonchi, right: clear Tactile fremitus: bilateral: normal Cardiovascular: irregular rhythm, murmur noted Gastrointestinal: normoactive bowel sounds, non-distended Extremities: no cyanosis normal mental status, non-focal exam mood appropriate Results - Laboratory Findings CBC and BMP: 03/12/19 04:36 03/12/19 04:36 PT/INR, D-dimer PT 40.1 Seconds (9.4-12.1) H 03/11/19 05:36 Abnormal lab findings: Abnormal lab results RBC 3.41 M/mcL (3.82-4.97) L 03/11/19 05:36 Hgb 9.1 g/dL (11.5-15.4) L 03/11/19 05:36 Hct 30.5 % (35.3-44.9) L 03/11/19 05:36 MCH 26.7 pg (28.0-33.3) L 03/11/19 05:36 MCHC 29.8 g/dL (31.6-35.5) L 03/11/19 05:36 RDW 17.0 % (11.5-14.5) H 03/11/19 05:36 0.5 K/mcL (0.6-4.6) L 03/11/19 05:36 PT 40.1 Seconds (9.4-12.1) H 03/11/19 05:36 APTT 48.4 Seconds (26.0-36.0) H 03/10/19 14:47 Carbon Dioxide 30 mEq/L (23-29) H 03/10/19 14:47 BUN 39 mg/dL (8-23) H 03/11/19 05:36 1.34 mg/dL (0.60-1.20) H 03/11/19 05:36 Est GFR ( Amer) 46 (> 60) L 03/11/19 05:36 Est GFR (Non-Af Amer) 38 (> 60) L 03/11/19 05:36 29 (6-26) H 03/11/19 05:36 Glucose 169 mg/dL (70-105) H 03/11/19 05:36 POC Glucose 150 mg/dL (70-99) H 03/11/19 07:19 305 (280-300) H 03/11/19 05:36 169 Units/L (34-104) H 03/10/19 14:47 0.04 ng/mL (< 0.04) H* 03/10/19 14:47 B-Natriuretic Peptide 1082 pg/mL (Less than 100) H 03/11/19 15:09 LDL Cholesterol, Calc 133 mg/dL (0-99) H 03/11/19 15:09 35 mg/dL (40-59) L 03/11/19 15:09 5.4 (0-4.9) H 03/11/19 15:09 Ur Leukocyte Esterase Small (Negative) H 03/10/19 14:57 3-5 per hpf (0-3) H 03/10/19 14:57 Ur Squamous Epith Cells Many per lpf (None-Few) H 03/10/19 14:57 Ur Culture Indicated? NO. (NO) A 03/10/19 14:57 - Microbiology Findings Microbiology Findings: Microbiology, Last 48 Hours 03/10/19 14:47 Blood Culture - Preliminary Peripheral Venipuncture Culture is incubating and being continuously monitored for growth. Final report to follow. 03/10/19 15:01 Blood Culture - Preliminary Peripheral Venipuncture Culture is incubating and being continuously monitored for growth. Final report to follow. - Diagnostic Findings Chest x-ray: report reviewed, image reviewed - Clinical Findings Intake & Output: Intake & Output 03/11/19 03/11/19 03/11/19 07:59 15:59 23:59 Intake Total 120 / 600 480 / 600 Output Total 150 / 150 Balance -30 / 450 480 / 450 Weight 96.6 kg Consult Discharge Plan - Plan Referrals: Carolin Lopez MD [Primary Care Provider] - 03/20/19 11:45 am
[2019-03-11] MEDS: Ipratropium Neb 0.5 MG NEBULIZER IH SCH ×2 (16:10→22:15)
--- NOTE | 2019-03-11 16:21 | Electrocardiograph Report ---
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
[2019-03-11 16:24] LABS: Adenovirus Not Detected (Not Detect); Bordetella Pertussis Not Detected (Not Detect); Chlamydophila pneumoniae Not Detected (Not Detect); Coronavirus 229E Not Detected (Not Detect); Coronavirus HKU1 Not Detected (Not Detect); Coronavirus NL63 Not Detected (Not Detect); Coronavirus OC43 Not Detected (Not Detect); Human Metapneumovirus Not Detected (Not Detect); Human Rhinovirus/Enterovirus Not Detected (Not Detect); Influenza A Subtype 2009 H1 Not Detected (Not Detect); Influenza A Untypeable Not Detected (Not Detect); Influenza B Not Detected (Not Detect); Mycoplasma pneumoniae Not Detected (Not Detect); Parainfluenza Virus 1 Not Detected (Not Detect); Parainfluenza Virus 2 Not Detected (Not Detect); Parainfluenza Virus 3 Not Detected (Not Detect); Parainfluenza Virus 4 Not Detected (Not Detect); Respiratory Syncytial Virus Not Detected (Not Detect)
--- NOTE | 2019-03-11 17:17 | Cardiology Consult Note ---
<Carolin Serrano Nereida - Last Filed: 03/11/19 17:33> Date of Encounter: 03/11/19 Time of Encounter: 17:14 Assessment and Plan (1) Atrial fibrillation with RVR Current Visit: No Status: Acute History of atrial fibrillation Anticoagulation with warfarin and rate control with metoprolol Suspect worsening secondary to mitral valve disease Avg HR over past 12 hours- 107 BPM Continue amiodarone drip, metoprolol, warfarin Repeat echo once more controlled (2) Congestive heart failure due to valvular disease Current Visit: Yes Status: Chronic HIstory of CHF BNP elevated to 1082 CXR shows pulmonary edema which is greater on left with pulmonary vascular congestion and enlarged but stable cardio-pericardial silouhette Lasix was given, however this worsened her YONI Echo 03/10/19- Suboptimal study due to clinical status, severe biatrial enlargement with mild-moderate aortic stenosis, moderate mitral regurgitation, moderate tricuspid regurgitation and severe pulmonary hypertension Recommend repeating echo once afib RVR more controlled Strict I&O Diurese as tolerated by renal function (3) Mitral stenosis Current Visit: Yes Status: Chronic Patient has 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 Planning on balloon dilation at [place], originally scheduled for 04/11/19, however she spoke to oil field tester there who has moved up procedure to 03/19/19 Suspect this is worsening her afib Qualifiers: Cardiac valve disease etiology: rheumatic Qualified Code(s): I05.0 - Rheumatic mitral stenosis (4) CAD (coronary artery disease) Current Visit: Yes Status: Chronic Patient has a history of CAD Troponin mildly elevated at 0.04, 0.03 however suspect this is secondary to demand ischemia, respiratory failure and afib RVR Continue home medication aspirin May need to start statin if no contraindications Qualifiers: Coronary Disease-Associated Artery/Lesion type: [place] artery [place] vs. transplanted heart: [place] heart Associated angina: without angina Qualified Code(s): I25.10 - Atherosclerotic heart disease of [place] coronary artery withou t angina pectoris (5) COPD exacerbation Current Visit: Yes Status: Suspected Patient having progressive shortness of breath CXR showed pulmonary edema, greater on left with pulmonary vascular congestion with cardio-pericardial silouette enlarged but stable Continue oxygen supplementation, steroids, xopenex, azithromycin, ipatropium, tessalon and guafenesin Respiratory support as needed (6) Acute kidney injury superimposed on CKD Current Visit: Yes Status: Acute Patient found to have YONI on CKD Baseline GFR in the 50's Cr currently 1.34, BUN currently 39 Suspect secondary to hypotension and lasix Continue to avoid nephrotoxic agents and renally dose medications (7) Hypertension Current Visit: Yes Status: Chronic Home medication lisinopril being held secondary to YONI Continue metoprolol Qualifiers: Hypertension type: essential hypertension Qualified Code(s): I10 - Essential (primary) hypertension (8) DVT prophylaxis Current Visit: No Status: Acute Continue home medication warfarin Discussion w patient/family: The assessment and plan as outlined above was discussed with the patient and/or family members who expressed understanding and agreement. All questions were answered. Thank you for involving us in the care of your patient. Please call with any questions. History of Present Illness Consult date: 03/11/19 Consult reason: Afib RVR Chief complaint: Shortness of breath History of present illness: Ms. Lui is a 78 year old female presenting with progressive shortness of breath. PMH of atrial fibrillation, CHF, COPD, CVA, HTN, valvular heart disease with mitral stenosis. She is planning on balloon dilation of mitral valve, originally on 04/11/19 however she spoke to oil field tester at [place] who has moved procedure up to 03/19/19. She states that she has had progressive shortness of breath over past few weeks, however it worsened over past 3 days prior to presenting. She also admits to nausea, lightheadedness, productive cough, palpitations, orthopnea, PND and edema as well as intermittent chest pain that lasts a few seconds, occurs at rest and happens every 3-4 weeks. Past Med Surg Social Fam HX - Past Medical History Medical history: asthma, atrial fibrillation, CHF, COPD, CVA, hypertension, valvular heart disease Additional medical history: mitral stenosis, pulmonary nodule Psychiatric history: no psych history - Past Surgical History Surgical History: appendectomy, cholecystectomy, hysterectomy Additional surgical history: d&c, dental extractions, L lung lobectomy 1949 - Social History Smoking Status: Never smoker Smokeless Tobacco Status: No Alcohol use: none Drug use: none - Family History Father Living Status: Hx Family Cardiac Disorders: Yes (Enlarged heart.) Mother Living Status: Hx Family Endocrine Disorder: Yes (Diabetes) Medications and Allergies Albuterol Neb [Proventil Neb] 2.5 mg IH Q4H PRN 08/05/16 [History] Albuterol Sulfate [Proair Hfa] 2 puff IH Q4H PRN 08/05/16 [History] Fluticasone Propionate Nasal [Flonase] 1 spray NS 2-3XD PRN 08/05/16 [History] Loratadine [Claritin] 10 mg PO DAILY 08/05/16 [History] Oxygen 2 l NS AD 08/05/16 [History] Potassium Chloride [K-Tab ER] 10 meq PO DAILY 08/05/16 [History] Aspirin 81 mg PO DAILY 10/10/16 [History] Warfarin [Coumadin] 5 mg PO MOWEFR 10/10/16 [History] Warfarin [Coumadin] 2.5 mg PO SUTUTHSA 09/25/17 [History] Furosemide [Lasix] 40 mg PO DAILY #0 09/28/17 [Rx] Budesonide/Formoterol 160/4.5 [Symbicort 160/4.5] 2 puff IH BIDR 03/10/19 [History] Guaifenesin [Mucinex] 600 mg PO BID PRN 03/10/19 [History] Lisinopril [Zestril] 10 mg PO DAILY 03/10/19 [History] Metoprolol [Lopressor] 50 mg PO BID 03/10/19 [History] Allergy/AdvReac Type Severity Reaction Status Date / Time Cefaclor [From [facility]] Allergy Difficulty Verified 03/10/19 20:19 Breathing cephalexin Allergy Difficulty Verified 03/10/19 20:19 Breathing doxycycline Allergy Anaphylaxis Verified 03/10/19 20:19 Penicillins Allergy Hives Verified 03/10/19 20:19 Sulfa (Sulfonamide Allergy Anaphylaxis Verified 03/10/19 20:19 Antibiotics) All Systems Review: The remainder of the systems were reviewed and are negative - Constitutional Constitutional: fever(s), no chills - EENT Eyes: blurred vision Nose, mouth and throat: no dysphagia - Cardiovascular Cardiovascular: chest pain at rest, dyspnea at rest, dyspnea on exertion, leg edema, lightheadedness, orthopnea, palpitations, paroxysmal nocturnal dyspnea, no syncope - Respiratory Respiratory: cough, dyspnea - Gastrointestinal Gastrointestinal: no abdominal pain, no constipation, no diarrhea - Genitourinary Genitourinary: no dysuria, no hematuria - Musculoskeletal Musculoskeletal: no arthralgias, no myalgias - Integumentary Integumentary: no erythema - Neurological Neurological: dizziness, no focal weakness - Psychiatric Psychiatric: no anxiety, no depression - Hematological/Lymphatic Hematologic/Lymphatic: easy bleeding Physical Examination Vital Signs, Last 4 Hours Temp Pulse Resp BP Pulse Ox 03/11/19 16:14 97.6 F 104 18 92/60 97 03/11/19 13:30 114 108/77 General: Conversant, No Apparent Distress HEENT: Atraumatic, Normocephaly, Mucus Membranes Moist Neck: No JVD, Normal carotid pulses Cardiac: Other (Irregular rate and rhythm, diastolic murmur) Lungs: Other (Mild rhonchi worse on left) Neuro: Alert and responsive, No focal deficits noted Abdomen: Soft, Non-Tender Skin: No rashes noted on visualized skin Musculoskeletal: No Chest Wall Tenderness Extremities: No Clubbing, No Cyanosis, Other (Trace bilateral pedal edema, irregular 2+ pulses) Results 03/11/19 05:36 03/11/19 05:36 Lab Results 03/11/19 03/11/19 03/11/19 05:36 05:36 05:36 WBC 9.5 Hgb 9.1 L Hct 30.5 L Plt Count 297 INR 3.6 Sodium 141 Potassium 4.5 Chloride 105 Carbon Dioxide 23 BUN 39 H Creatinine 1.34 H Glucose 169 H Calcium 9.1 Troponin I B-Natriuretic Peptide 03/11/19 03/11/19 15:09 15:09 WBC Hgb Hct Plt Count INR Sodium Potassium Chloride Carbon Dioxide BUN Creatinine Glucose Calcium Troponin I 0.03 B-Natriuretic Peptide 1082 H Consult Discharge Plan - Plan Referrals: Carolin Lopez MD [Primary Care Provider] - 03/20/19 11:45 am < A - Last Filed: 03/12/19 07:50> Date of Encounter: 03/12/19 - Attending Attestation I have personally performed a face to face evaluation on this patient. I have reviewed and agree with the documented findings and care plan as documented by the resident. History and Exam by me shows: 78-year-old pleasant female admitted with A. celi with RVR. She has history of moderate mitral stenosis MG of 6 mmHg, being planned for balloon valvuloplasty at [place]. Echo shows moderate mitral regurg, however patient was in RVR during the study. Recommend repeat full echo when heart rate is better controlled, and ascertain exact severity of mitral regurgitation as MR worse than mild would argue against balloon valvuloplasty. Meanwhile continue amiodarone, and Coumadin. Diurese as renal function allows. Consider nephrology input. Thanks, Omer Moran MD [facility] Assessment and Plan Discussion w patient/family: The assessment and plan as outlined above was discussed with the patient and/or family members who expressed understanding and agreement. All questions were answered. Thank you for involving us in the care of your patient. Please call with any questions. History of Present Illness History of present illness: Ms. Lui is a 78 year old female All Systems Review: The remainder of the systems were reviewed and are negative Physical Examination Vital Signs, Last 4 Hours Temp Pulse Resp BP Pulse Ox 03/12/19 07:28 97.7 F 119 20 125/99 94 03/12/19 04:03 14 96 Results 03/12/19 04:36 03/12/19 04:36 Lab Results 03/11/19 03/11/19 03/11/19 15:09 15:09 21:02 WBC Hgb Hct Plt Count INR Sodium Potassium Chloride Carbon Dioxide BUN Creatinine Glucose Calcium Troponin I 0.03 0.04 H* B-Natriuretic Peptide 1082 H 03/12/19 03/12/19 03/12/19 04:36 04:36 04:36 WBC 16.2 H D Hgb 9.1 L Hct 30.3 L Plt Count 350 INR 3.4 Sodium 137 Potassium 4.6 Chloride 102 Carbon Dioxide 23 BUN 64 H Creatinine 1.92 H Glucose 148 H Calcium 9.4 Troponin I B-Natriuretic Peptide
[2019-03-11 17:19] LABS: Estimated Average Glucose 131 mg/dl; Hemoglobin A1C 6.2 %
[2019-03-11] MEDS ORDERED: *HR* Dextrose 50 % in Water (Syg) 50 ML SYRINGE IVP PRN (17:21)
[2019-03-11] MEDS ORDERED: Dextrose Gel 15 GM/37.5 ML TUBE PO PRN ×2 (17:21)
[2019-03-11] MEDS ORDERED: D5% in Water 1,000 ML IVC PRN (17:21)
[2019-03-11] MEDS ORDERED: Warfarin perPT PO PRN (18:00)
[2019-03-11] MEDS: Insulin LISPRO 300 UNITS/3 ML VIAL SQ SCH ×2 (18:06→20:07)
[2019-03-11] MEDS: Insulin DETEMIR 100 UNIT/ML X5UNITS SQ SCH (20:10)
[2019-03-12] MEDS: MethylPREDNISolone 40 MG/ML VIAL IVP SCH ×4 (01:18→16:41)
[2019-03-12] MEDS: Ipratropium Neb 0.5 MG NEBULIZER IH SCH ×4 (04:02→22:45)
[2019-03-12] MEDS: Levalbuterol Neb 1.25 MG/3 ML IH SCH ×4 (04:02→22:45)
[2019-03-12 05:28] LABS: Basophils % 0.1 %; Hematocrit 30.3 % (35.3-44.9); Hemoglobin 9.1 g/dL (11.5-15.4); Immature Granulocytes % 0.7 % (0-4); Lymphocytes # 0.5 K/mcL (0.6-4.6); Mean Corpuscular Hemoglobin 26.8 pg (28.0-33.3); Mean Corpuscular Volume 89.1 fL (83.0-100.0); Mean Platelet Volume 11.1 fL (9.4-12.4); Monocytes # 0.7 K/mcL (0.0-1.3); Monocytes % 4.2 %; Neutrophils # 14.9 K/mcL (1.6-8.9); Nucleated Red Blood Cells 0.2 /100 WBC (0); Platelet Count 350 K/mcL (140-400); Red Cell Distribution Width 17.3 % (11.5-14.5)
[2019-03-12 05:35] LABS: INR 3.4; Prothrombin Time 38.7 Seconds (9.4-12.1)
[2019-03-12 05:47] LABS: Albumin 3.6 g/dL (3.5-5.7); Calcium 9.4 mg/dL (8.6-10.3); Phosphorous 4.9 mg/dL (2.7-4.5); Potassium 4.6 mEq/L (3.5-5.1)
[2019-03-12] MEDS: Amiodarone Premix 360 MG/200 ML BAG IVC SCH ×2 (06:54→19:05)
[2019-03-12] MEDS: Loratadine 10 MG TABLET PO SCH (08:29)
[2019-03-12] MEDS: Aspirin 81 MG TAB.CHEW PO SCH (08:30)
[2019-03-12] MEDS: Insulin LISPRO 300 UNITS/3 ML VIAL SQ SCH ×4 (08:30→21:38)
[2019-03-12] MEDS ORDERED: *HR* Warfarin 5 MG TABLET PO SCH (09:00)
[2019-03-12] MEDS ORDERED: *HR* Warfarin 2.5 MG TABLET PO SCH (09:00)
--- NOTE | 2019-03-12 09:39 | Internal Med Progress Note ---
Hospitalist Progress Note - Encounter Date of Encounter: 03/12/19 Time of Encounter: 09:36 - Subjective Interval History: Pt denies chest pain. She states SOB abou the same as yesterday. She was transferred to step down for close monitoring 03/10/19. She reports dry cough. She denies fever, chills, N/V or diarrhea. She denies abdominal pain. Daughter at bedside and states she discussed with Dr. Garcia and pt's surgery date has been moved up from April 10 to March 19. Daughter states pt as pre-admission testing scheduled for March 17. - Exam Vitals: Temp Pulse Resp BP Pulse Ox 97.7 F 119 20 125/99 94 03/12/19 07:28 03/12/19 07:28 03/12/19 07:28 03/12/19 07:28 03/12/19 07:28 Exam: General appearance: Present: mild distress, A&O X 3 Exam: Head exam: Present: atraumatic, normocephalic Eye exam: Present: PERRL, conjuntiva pink, sclera anicteric Pupils: Present: PERRL Neck exam general surgery: Present: supple, trachea midline. Absent: lymphadenopathy Respiratory exam: Absent: accessory muscle use, rales, rhonchi, wheezes. pre sent: crackles bilateral bases. Cardiovascular exam: Present: irregular rhythm, positive murmur. Absent: diastolic murmur, gallop, RRR, rubs GI/Abdominal exam: Present: normal bowel sounds, soft, no peritoneal signs. Absent: distended, tenderness Extremities exam: Present: pedal edema, warm, radial pulses palpable and sym metrical. Absent: calf tenderness, cyanotic Trace LE edema Neurological exam: Present: CN II-XII intact, oriented X3, no focal deficits. Absent: pronater drift, facial droop, speech deficit Skin exam: Present: dry, intact - Assessment and Plan (1) COPD exacerbation Current Visit: Yes Status: Suspected Assessment and Plan: Changed Duo neb scheduled Q 4hr PRN to Xoponex due to afib RVR and added ipratropium. Will continue steroids therapy. Continue Oxygen supplement. Pulmonology evaluated and agree with pulm that dypsnea primarily related to valvular disease. Appreciate pulm eval. (2) Atrial fibrillation with RVR Current Visit: No Status: Acute Assessment and Plan: At home on lopressor and warfarin. Was started on amiodarone gtt during the night of 03/10/19 due to Afib RVR and hypotension. Surgery assisting with management of afib. Pt well known to Dr. Llamas. Pt states that Dr. Llamas had reffered her to physician at [facility] for further management and she has an appointment for "balloon procedure" next month. Cardiology recommends continue amiodarone gtt, metoprolol, and warfarin for now. Cardiology increasing metoprolol from 50 mg PO BID to 75 mg PO BID with plans to wean of amiodarone. (3) Mitral stenosis Current Visit: Yes Status: Chronic Assessment and Plan: Pt states on admission that Dr. Llamas had reffered her to Dr. Garcia at [place]. Pt was scheduled for possible "balloon procedure", likely balloon valvuloplasty April 10. Daughter at bedside and states she discussed with Dr. Garcia at [place], and pt's surgery date has been moved up from April 10 to March 19. Daughter states pt as pre-admission testing scheduled for March 17. (4) Chronic respiratory failure Current Visit: Yes Status: Acute Assessment and Plan: On 2L NC at home. Continue with oxygen supplement (5) CAD (coronary artery disease) Current Visit: Yes Status: Chronic Assessment and Plan: Aspirin. Pt states she is not on lipid lowering medication but could not say why. (6) Congestive heart failure due to valvular disease Current Visit: Yes Status: Chronic Assessment and Plan: Given lasix 40 mg IV times one 03/10/19 and pt's Cr bumped from 1.24 to 1.34. However Cr worse today, 1.92 therefore will start back on lasix. Asking nephrology for assistance with YONI. Cardiology on board Echo EV/EV echocardiogram w enhance Impressions: Technically sub-optimal due to clinical status. Atrial fibrillation with RVR. Unable to accurately evaluate LV systolic function due to elevated heart rates. Right ventricular structure and function not well evaluated. Severe bi-atrial enlargement. Aortic valve not well visualized. Mild-moderate aortic stenosis by Doppler. Mitral valve not well visualized. Suboptimal Doppler interrogation due to elevated heart rates. Moderate mitral regurgitation. Moderate tricuspid regurgitation. Severe pulmonary hypertension. Recommend repeat study when heart rates improve. (7) Elevated troponin Current Visit: Yes Status: Acute Assessment and Plan: Mild bump in troponin. Pt denies CP. Likely due to Afib RVR and ischemic demand. Cardiology on board (8) Hypertension Current Visit: Yes Status: Chronic Assessment and Plan: On lisinopril and lopressor at home. Holding lisinopril for now. (9) YOIN (acute kidney injury) Current Visit: Yes Status: Acute Assessment and Plan: Given lasix 40 mg IV x one 03/09/19 and Cr bumped from 1.24 to 1.34. Held off on lasix on 03/10/19 and ordered repeat CXR. Repeat CXR once again showing pulmonary edema. Cr worse today and up to 1.92. Consulting nephrology for assiatnce. Resumeing IV Lasix today 40 mg IV BID. Holding lisinopril and other nephrotoxic meds. DVT Prophylaxis: Warfarin - Summary of Assessment and Plan Summary of Assessment and Plan: History of present illness: Dr. Victor Ms. Lui is a 78 year old female with past medical history of COPD (non- smokers emphysema), chronic respiratory failure on 2L NC, never smoked, CAD, CHF, HTN, mitral stenosis, afib who presents with worsening SOB. Pt states she has had progressive SOB in last 3 days. States she ot SOB with little activity. Reports having palpitations but denies chest pain. Positive cough but with littl e yellowish mucous. She denies fever but states she gets chills. Tehn later reported subjective feve r and states she took tylenol but did not heck her temp at home. - Time Spent with Patient Total time spent is greater than 50% in coordination of care (as documented) at patient's floor/unit and/or counseling patient: less than 15 minutes Plan of Care Discussed with: patient Internal Medicine: Result - Labs CBC & Chem 7: 03/12/19 04:36 03/12/19 04:36 Labs: Short CBC 03/12/19 Range/Units 04:36 WBC 16.2 H D (4.3-11.1) K/mcL Hgb 9.1 L (11.5-15.4) g/dL Hct 30.3 L (35.3-44.9) % Plt Count 350 (140-400) K/mcL Neutrophils # 14.9 H (1.6-8.9) K/mcL BMP 05/01/19 04:36 Sodium 137 Potassium 4.6 Chloride 102 Carbon Dioxide 23 BUN 64 H Creatinine 1.92 H Glucose 148 H Calcium 9.4 Cardiac Enzymes 03/11/19 03/11/19 Range/Units 15:09 21:02 Troponin I 0.03 0.04 H* (< 0.04) ng/mL Liver Function 03/12/19 Range/Units 04:36 Albumin 3.6 (3.5-5.7) g/dL - ABG Interpretation ABG results: PT/INR, D-dimer PT 38.7 Seconds (9.4-12.1) H 03/12/19 04:36 - Impressions Impressions Chest X-Ray 03/10/19 14:20 IMPRESSION: COPD with stable bilateral pleural effusions versus pleural adhesions. D/ / 03/10/2019 14:46:14 Jordan Guerra MD / [facility] Interpreting Provider: Jordan Guerra MD Echocardiogram 03/10/19 18:56 Impressions: Technically sub-optimal due to clinical status. Atrial fibrillation with RVR. Unable to accurately evaluate LV systolic function due to elevated heart rates. Right ventricular structure and function not well evaluated. Severe bi-atrial enlargement. Aortic valve not well visualized. Mild-moderate aortic stenosis by Doppler. Mitral valve not well visualized. Suboptimal Doppler interrogation due to elevated heart rates. Moderate mitral regurgitation. Moderate tricuspid regurgitation. Severe pulmonary hypertension. Recommend repeat study when heart rates improve. Findings: Study Quality * Technically sub-optimal due to clinical status. ECG Findings * Atrial fibrillation with RVR. Left Ventricle * Unable to evaluate segmental wall motion due to technical quality. * Definity echo contrast was used. * Normal LV chamber size. * LV wall thickness measurements not well obtained. Right Ventricle * Right ventricular structure and function not well evaluated. Left Atrium * Severely dilated left atrium. Right Atrium * Severely dilated right atrium. Aortic Valve * Aortic valve not well visualized. * No aortic regurgitation. * Mild-moderate aortic stenosis by Doppler. Mitral Valve * Mitral valve not well visualized. * Moderate mitral regurgitation. * Moderately calcified mitral valve leaflets. * Suboptimal Doppler interrogation due to elevated heart rate. Tricuspid Valve * Tricuspid valve not well visualized. * Moderate tricuspid regurgitation. Pulmonic Valve * Pulmonic valve is not well visualized. * No pulmonic stenosis. * No pulmonic regurgitation. Pulmonary Artery * Pulmonary artery not well visualized. Aorta * Normally sized aortic root. Pericardium * There is no pericardial effusion present. Interatrial Septum * No evidence of PFO by color Doppler. IVC * The IVC is not well evaluated. Chest X-Ray 03/11/19 10:02 IMPRESSION: Findings most compatible with pulmonary edema, which is similar in appearance when compared to the previous exam. D/ / Javier Chow MD / Javier Chow MD Interpreting Provider: Javier Chow MD Consult Discharge Plan - Plan Referrals: Carolin Lopez MD [Primary Care Provider] - 03/20/19 11:45 am (3) Mitral stenosis Qualifiers: Cardiac valve disease etiology: rheumatic Qualified Code(s): I05.0 - Rheumatic mitral stenosis (4) Chronic respiratory failure Qualifiers: Qualified Code(s): J96.10 - Chronic respiratory failure, unspecified whether with hypoxia or hypercapnia (5) CAD (coronary artery disease) Qualifiers: Coronary Disease-Associated Artery/Lesion type: [place] artery [place] vs. transplanted heart: [place] heart Associated angina: without angina Qualified Code(s): I25.10 - Atherosclerotic heart disease of [place] coronary artery without angina pectoris (8) Hypertension Qualifiers: Hypertension type: essential hypertension Qualified Code(s): I10 - Essential (primary) hypertension
[2019-03-12] MEDS: Budesonide/Formoterol 160/4.5 1 PUFF INH IH SCH ×2 (10:34→22:45)
--- NOTE | 2019-03-12 12:41 | Nephrology Consult Note ---
Date of Encounter: 03/12/19 Time of Encounter: 11:15 Assessment and Plan (1) YONI (acute kidney injury) Status: Acute Acute kidney injury of probable multifactorial etiology. With her Afib, CHF and valvular disease, I suspect there is a hemodynamic contribution to the worsening renal function. She may also have cardiorenal syndrome, and so with her renal function worsening after having held Lasix the last few day, I would agree that resuming it today is appropriate. I recommend a CKD workup (stage 2-3a with GFR's just above 60 and sometimes in the upper 50s) as well as acute kidney injury workup, which I have ordered. I will check a retroperitoneal ultrasound, check urine for eosinophils, check serologies. Though she does not need renal replacement therapy at this time, I will continue to closely follow with you. I recommend strict I's and O's, daily weights, avoi dance of nephrotoxins, a fluid restriction of 1.5 L per day, and renal dosing. Thank you for having consult of the [facility]. (2) Acute exacerbation of chronic obstructive airways disease Status: Acute (3) Anemia Status: Acute Goal Hgb is 10-11; will monitor Qualifiers: Anemia type: unspecified type Qualified Code(s): D64.9 - Anemia, u nspecified (4) Congestive heart failure due to valvular disease Status: Chronic As above, continue fluid restriction Continue strict I/Os (5) Hypertension Status: Chronic Holding KAREN or ARB Qualifiers: Hypertension type: essential hypertension Qualified Code(s): I10 - Essential (primary) hypertension (6) Atrial fibrillation with RVR Status: Acute Per cardiology History of Present Illness - Reason for Consult Consult date: 03/12/19 Acute Kidney Injury Requesting physician: Coby Victor - Chief Complaint YONI - History of Present Illness The patient is a very pleasant 79-year-old female with a past medical history of A. fib, CHF and etc. who presented with worsening renal function and shortness of breath. She was found to have worsening creatinine compared to her baseline and nephrology was consult it. The patient was on amiodarone and previously on Lasix which had been held for a few days; however, her renal function continued to worsen. She denied having taken [id number] NSAIDs in the previous few weeks. She had a history of severe illness approximately 10 years ago related to pneumonia. She affirmed having a diminished appetite, but did not have nausea, vomiting, diarrhea, fevers, chills, or urination changes. Past Med Surg Social Fam HX - Past Medical History Medical history: asthma, atrial fibrillation, CHF, COPD, CVA, hypertension, valvular heart disease Additional medical history: mitral stenosis, pulmonary nodule Psychiatric history: no psych history - Past Surgical History Surgical History: appendectomy, cholecystectomy, hysterectomy Additional surgical history: d&c, dental extractions, L lung lobectomy 1949 - Social History Smoking Status: Never smoker Smokeless Tobacco Status: No Alcohol use: none Drug use: none - Family History Father Living Status: Hx Family Cardiac Disorders: Yes (Enlarged heart.) Mother Living Status: Hx Family Endocrine Disorder: Yes (Diabetes) Medications and Allergies Albuterol Neb [Proventil Neb] 2.5 mg IH Q4H PRN 08/05/16 [History] Albuterol Sulfate [Proair Hfa] 2 puff IH Q4H PRN 08/05/16 [History] Fluticasone Propionate Nasal [Flonase] 1 spray NS 2-3XD PRN 08/05/16 [History] Loratadine [Claritin] 10 mg PO DAILY 08/05/16 [History] Oxygen 2 l NS AD 08/05/16 [History] Potassium Chloride [K-Tab ER] 10 meq PO DAILY 08/05/16 [History] Aspirin 81 mg PO DAILY 10/10/16 [History] Warfarin [Coumadin] 5 mg PO MOWEFR 10/10/16 [History] Warfarin [Coumadin] 2.5 mg PO SUTUTHSA 09/25/17 [History] Furosemide [Lasix] 40 mg PO DAILY #0 09/28/17 [Rx] Budesonide/Formoterol 160/4.5 [Symbicort 160/4.5] 2 puff IH BIDR 03/10/19 [History] Guaifenesin [Mucinex] 600 mg PO BID PRN 03/10/19 [History] Lisinopril [Zestril] 10 mg PO DAILY 03/10/19 [History] Insulin DETEMIR [Levemir] 5 unit SQ HS [id number] 03/15/19 [Rx] Metoprolol [Lopressor] 100 mg PO BID tablet 03/15/19 [Rx] predniSONE [PredniSONE] 30 mg PO DAILY tablet 03/15/19 [Rx] Allergy/AdvReac Type Severity Reaction Status Date / Time Cefaclor [From [facility]] Allergy Difficulty Verified 03/10/19 20:19 Breathing cephalexin Allergy Difficulty Verified 03/10/19 20:19 Breathing doxycycline Allergy Anaphylaxis Verified 03/10/19 20:19 Penicillins Allergy Hives Verified 03/10/19 20:19 Sulfa (Sulfonamide Allergy Anaphylaxis Verified 03/10/19 20:19 Antibiotics) Review of Systems All Systems: reviewed and no additional remarkable complaints except as stated Exam - Vital Signs Vital signs: Initial Vital Signs Temp Pulse Resp BP Pulse Ox 98.9 F 109 18 88/59 89 03/10/19 13:59 03/10/19 13:59 03/10/19 13:59 03/10/19 13:59 03/10/19 13:59 Vital Signs - Last 8 Hours Temp Pulse Resp BP Pulse Ox 03/12/19 12:29 106 22 114/90 95 03/12/19 11:57 97.7 F 125 22 121/111 99 03/12/19 10:35 22 94 03/12/19 10:00 122 22 105/93 93 03/12/19 09:00 107/78 03/12/19 07:28 97.7 F 119 20 125/99 94 Intake and Output 03/11/19 03/12/19 03/12/19 23:59 07:59 15:59 Intake Total 690 / 1290 200 / 440 240 / 440 Balance 690 / 1140 200 / 440 240 / 440 Intake: IV Fluids 450 / 450 200 / 200 Amiodarone Drip Premix 360mg/ 200 / 200 200 / 200 200mL 360 mg In 200 ml @ 0.5 MG /MIN 16.667 mls/hr IVC CONT YUNI Rx#:[id number] Zithromax 500 mg In Dextrose 5% 250 / 250 250 ML @ 252 mls/hr IVPB Q24H YUNI Rx#:[id number] Oral 240 / 840 240 / 240 Other: Meal Dinner Breakfast Percent of Meal Consumed 95% 85% # Voids 1 Weight 97.6 kg 97.5 kg Blood Glucose* 169 128 121 Patient Weight 03/12/19 23:59 Weight 97.5 kg - General Appearance General appearance: well-developed, well-nourished, appears started age, frail EENT: ATNC, PERRL, mucous membranes moist Neck: no JVD Respiratory: course breath sounds, rhonchi Cardiology: edema (trace pretibial pitting edema/bl), irregular rhythm, normal S1, normal S2 Gastrointestinal: normoactive bowel sounds, no tenderness, no guarding, obese Integumentary: warm and dry Neurologic: no focal deficit, no asterixis, alert and oriented x3 Musculoskeletal: no deformities, no erythema, no cyanosis Psychiatric: mood/affect appropriate, cooperative Results - Lab Results 03/15/19 09:08 03/15/19 09:08 Most recent lab results 03/12/19 04:36 Calcium 9.4 Phosphorus 4.9 H Consult Discharge Plan - Plan Instructions: Heart Failure (DC), Chronic Obstructive Pulmonary Disease (DC), Chronic Hypertension (DC), Anemia (GEN) Referrals: Carolin Lopez MD [Primary Care Provider] - 03/20/19 11:45 am
[2019-03-12] MEDS: cefTRIAXone 1,000 MG in Water for inj. (sterile) 20 ML 10 ML IVP SCH (15:26)
[2019-03-12] MEDS: Azithromycin 500 MG in D5% in Water 250 ML IVPB SCH (15:30)
--- NOTE | 2019-03-12 15:30 | Cardiology Progress Note ---
Date of Encounter: 03/12/19 Time of Encounter: 10:00 Assessment and Plan (1) Atrial fibrillation with RVR Current Visit: No Status: Acute Yet to be rate controlled. Increase metoprolol to 75 mg twice a day. Continue IV amiodarone. Continue anticoagulation with IV heparin (2) Congestive heart failure due to valvular disease Current Visit: Yes Status: Chronic Diurese as tolerated by renal function (3) Mitral stenosis Current Visit: Yes Status: Chronic Avoid tachycardia. Please discontinue B agonist such as albuterol, DuoNebs. We are waiting for heart rates to be less than 100 and repeat echocardiogram to rule out significant mitral regurg that may potentially preclude mitral balloon valvuloplasty Qualifiers: Cardiac valve disease etiology: rheumatic Qualified Code(s): I05.0 - Rheumatic mitral stenosis Discussion w patient/family: The assessment and plan as outlined above was discussed with the patient and/or family members who expressed understanding and agreement. All questions were answered. Thank you for involving us in the care of your patient. Please call with any questions. Subjective Principal diagnosis: Atrial fib Interval history: Feels better, still tachycardic Objective Vital Signs, Last 4 Hours Temp Pulse Resp BP Pulse Ox 03/12/19 14:00 121 99/69 03/12/19 13:00 122 20 99/75 94 03/12/19 12:29 106 22 114/90 95 03/12/19 11:57 97.7 F 125 22 121/111 99 General: Conversant Cardiac: Normal S1 and S2, Other (2/6 apical diastolic murmur; and 2/6 apical holosystolic murmur) Lungs: Other (Minimal Rales) Neuro: Alert and responsive, No focal deficits noted Abdomen: Soft Extremities: Other (Mild pedal edema) Results 03/12/19 04:36 03/12/19 04:36 Lab Results 03/11/19 03/11/19 03/11/19 15:09 15:09 21:02 WBC Hgb Hct Plt Count INR Sodium Potassium Chloride Carbon Dioxide BUN Creatinine Glucose Calcium Troponin I 0.03 0.04 H* B-Natriuretic Peptide 1082 H 03/12/19 03/12/19 03/12/19 04:36 04:36 04:36 WBC 16.2 H D Hgb 9.1 L Hct 30.3 L Plt Count 350 INR 3.4 Sodium 137 Potassium 4.6 Chloride 102 Carbon Dioxide 23 BUN 64 H Creatinine 1.92 H Glucose 148 H Calcium 9.4 Troponin I B-Natriuretic Peptide Consult Discharge Plan - Plan Referrals: Carolin Lopez MD [Primary Care Provider] - 03/20/19 11:45 am
[2019-03-12] MEDS: Furosemide 40 MG/4 ML VIAL IVP SCH (16:40)
[2019-03-12] MEDS ORDERED: *HR* Warfarin 2.5 MG TABLET PO ONE (18:00)
[2019-03-12 19:34] LABS: Complement C3 159 mg/dL (87-200)
[2019-03-12] MEDS: Insulin DETEMIR 100 UNIT/ML X5UNITS SQ SCH (21:39)
[2019-03-13] MEDS: Levalbuterol Neb 1.25 MG/3 ML IH SCH (03:58)
[2019-03-13] MEDS: Ipratropium Neb 0.5 MG NEBULIZER IH SCH ×2 (03:58→11:09)
[2019-03-13 05:17] LABS: Basophils % 0.1 %; Hematocrit 28.4 % (35.3-44.9); Hemoglobin 8.7 g/dL (11.5-15.4); Immature Granulocytes % 0.8 % (0-4); Lymphocytes # 0.5 K/mcL (0.6-4.6); Lymphocytes % 3.2 %; Mean Corpuscular HGB Conc 30.6 g/dL (31.6-35.5); Mean Corpuscular Hemoglobin 26.9 pg (28.0-33.3); Mean Corpuscular Volume 87.9 fL (83.0-100.0); Monocytes # 0.8 K/mcL (0.0-1.3); Monocytes % 5.1 %; Neutrophils # 13.6 K/mcL (1.6-8.9); Nucleated Red Blood Cells 0.5 /100 WBC (0); Platelet Count 340 K/mcL (140-400); Red Blood Count 3.23 M/mcL (3.82-4.97); Red Cell Distribution Width 17.2 % (11.5-14.5); Segmented Neutrophils % 90.8 %
[2019-03-13 05:34] LABS: INR 2.6; Prothrombin Time 29.3 Seconds (9.4-12.1)
[2019-03-13 05:35] LABS: Albumin 3.5 g/dL (3.5-5.7); Calcium 9.1 mg/dL (8.6-10.3); Phosphorous 5.1 mg/dL (2.7-4.5); Potassium 4.9 mEq/L (3.5-5.1)
[2019-03-13] MEDS: Amiodarone Premix 360 MG/200 ML BAG IVC SCH (06:19)
[2019-03-13] MEDS: MethylPREDNISolone 40 MG/ML VIAL IVP SCH ×2 (06:19→17:26)
[2019-03-13] MEDS: Aspirin 81 MG TAB.CHEW PO SCH (08:31)
[2019-03-13] MEDS: Loratadine 10 MG TABLET PO SCH (08:31)
[2019-03-13] MEDS: cefTRIAXone 1,000 MG in Water for inj. (sterile) 20 ML 10 ML IVP SCH (08:32)
[2019-03-13] MEDS: Furosemide 40 MG/4 ML VIAL IVP SCH ×2 (08:32→17:26)
[2019-03-13] MEDS: Insulin LISPRO 300 UNITS/3 ML VIAL SQ SCH ×4 (08:33→21:10)
--- NOTE | 2019-03-13 10:05 | Cardiology Progress Note ---
<Carolin Serrano - Last Filed: 03/13/19 16:01> Date of Encounter: 03/13/19 Time of Encounter: 10:05 Assessment and Plan (1) Atrial fibrillation with RVR Current Visit: No Status: Acute Average HR overnight of 104 Continue IV amiodarone and hold metoprolol steady at 75 mg BID. Continue anticoagulation with warfarin until repeat echo results, if moderate to severe mitral regurgitation then balloon valvuloplasty may worsen regurgitation. Repeat ECHO pending (2) Congestive heart failure due to valvular disease Current Visit: Yes Status: Chronic Continue respiratory support Diurese as tolerated by renal function- renal function continues to decline Currently +2.482 L Fluid restriction to 1.5 L per day Continuous cardiac monitoring (3) Mitral stenosis Current Visit: Yes Status: Chronic History of mitral stenosis with plan for balloon valvuloplasty at [facility] on 03/19/19 Repeat echo pending now that HR has become more controlled for further evaluation of mitral regurgitation Have discontinued albuterol to avoid increasing heart rate Nurse working with surgeon at [facility] has requested warfarin be held, however waiting for echo results to guide discontinuation of anticoagulation Qualifiers: Cardiac valve disease etiology: rheumatic Qualified Code(s): I05.0 - Rheumatic mitral stenosis (4) CAD (coronary artery disease) Current Visit: Yes Status: Chronic Patient has a history of CAD Troponin mildly elevated at 0.04, 0.03 however suspect this is secondary to demand ischemia, respiratory failure and afib RVR Continue home medication aspirin Qualifiers: Coronary Disease-Associated Artery/Lesion type: [place] artery [place] vs. transplanted heart: [place] heart Associated angina: without angina Qualified Code(s): I25.10 - Atherosclerotic heart disease of [place] coronary artery without angina pectoris (5) COPD exacerbation Current Visit: Yes Status: Acute Patient having progressive shortness of breath CXR showed pulmonary edema, greater on left with pulmonary vascular congestion with cardio-pericardial silouette enlarged but stable Continue oxygen supplementation, steroids, azithromycin, ipatropium, tessalon and guafenesin Respiratory support as needed Albuterol and xopenex discontinued in attempt to control HR (6) Acute kidney injury superimposed on CKD Current Visit: Yes Status: Acute Patient found to have YONI on CKD- worsening overnight Baseline GFR in the 50's Cr currently 2.34, BUN currently 77 Suspect secondary to hypotension and lasix Continue to avoid nephrotoxic agents and renally dose medications (7) Hypertension Current Visit: Yes Status: Chronic Home medication lisinopril being held secondary to YONI Continue metoprolol at 75 mg BID, may become hypotensive if metoprolol further increased Qualifiers: Hypertension type: essential hypertension Qualified Code(s): I10 - Essential (primary) hypertension (8) DVT prophylaxis Current Visit: No Status: Acute Warfarin Discussion w patient/family: The assessment and plan as outlined above was discussed with the patient and/or family members who expressed understanding and agreement. All questions were answered. Thank you for involving us in the care of your patient. Please call with any questions. Subjective Principal diagnosis: Atrial fib Interval history: Patient seen and examined at bedside today. She states that her shortness of breath has somewhat improved, however she becomes fatigued and dyspnic when moving from bed to commode. She also continues to have orthopnea. She is anxious about renal function. We discussed repeat echo this evening for further evaluation of mitral valve in regards to severity of mitral regurgitation, if moderate or severe mitral regurgitation, then balloon valvuloplasty could worsen the regurgitation. Objective Vital Signs, Last 4 Hours Temp Pulse Resp BP Pulse Ox 03/13/19 07:05 97.8 F 102 18 114/94 94 General: Conversant, No Apparent Distress, Other (Anxious) HEENT: Atraumatic, Normocephaly, Mucus Membranes Moist Neck: Normal carotid pulses Cardiac: Normal S1 and S2, No Murmur, Other (Irregular rate and rhythm) Lungs: Normal Breath Sounds, No Wheeze, Rales, Rhonchi Neuro: Alert and responsive, No focal deficits noted Abdomen: Soft, Non-Tender Skin: No rashes noted on visualized skin Musculoskeletal: No Chest Wall Tenderness Extremities: No Clubbing, No Cyanosis, Normal Pulses, Other (1+ LE edema bilaterally) Results 03/13/19 04:43 03/13/19 04:43 Lab Results 03/13/19 03/13/19 03/13/19 04:43 04:43 04:43 WBC 15.0 H Hgb 8.7 L Hct 28.4 L Plt Count 340 INR 2.6 Sodium 135 L Potassium 4.9 Chloride 100 Carbon Dioxide 23 BUN 77 H Creatinine 2.34 H Glucose 134 H Calcium 9.1 Consult Discharge Plan - Plan Referrals: Carolin Lopez MD [Primary Care Provider] - 03/20/19 11:45 am <Omer Moran A - Last Filed: 03/13/19 16:36> Date of Encounter: 03/13/19 Assessment and Plan (1) Atrial fibrillation with RVR Current Visit: No Status: Acute (2) Congestive heart failure due to valvular disease Current Visit: Yes Status: Chronic (3) Mitral stenosis Current Visit: Yes Status: Chronic Qualifiers: Cardiac valve disease etiology: rheumatic Qualified Code(s): I05.0 - Rheumatic mitral stenosis Discussion w patient/family: The assessment and plan as outlined above was discussed with the patient and/or family members who expressed understanding and agreement. All questions were answered. Thank you for involving us in the care of your patient. Please call with any questions. Objective Vital Signs, Last 4 Hours Temp Pulse Resp BP Pulse Ox 03/13/19 16:30 98 F 108 18 120/96 98 03/13/19 14:00 99 106/81 03/13/19 13:00 115 108/81 Results 03/13/19 04:43 03/13/19 04:43 Lab Results 03/13/19 03/13/19 03/13/19 04:43 04:43 04:43 WBC 15.0 H Hgb 8.7 L Hct 28.4 L Plt Count 340 INR 2.6 Sodium 135 L Potassium 4.9 Chloride 100 Carbon Dioxide 23 BUN 77 H Creatinine 2.34 H Glucose 134 H Calcium 9.1 - Attending Attestation I have personally performed a face to face evaluation on this patient. I have reviewed and agree with the documented findings and care plan as documented by the resident. History and Exam by me shows: Repeat echo today to document severity of mitral regurgitation prior to proceeding with possible balloon valvuloplasty for mitral stenosis. Please ensure that all imaging studies particularly echocardiogram during this hospitalization sent to Dr. Pascual Garcia at [facility]. Thanks, Omer Moran MD [facility]
[2019-03-13] MEDS: Budesonide/Formoterol 160/4.5 1 PUFF INH IH SCH ×2 (11:09→22:18)
--- NOTE | 2019-03-13 12:27 | Internal Med Progress Note ---
Hospitalist Progress Note - Encounter Date of Encounter: 03/13/19 Time of Encounter: 12:25 - Subjective Interval History: Pt states SOB improving today. not having conversational dyspnea and breathing not labored. She denies chest pain. She denies fever, chills, N/V or diarrhea. - Exam Vitals: Temp Pulse Resp BP Pulse Ox 98.0 F 105 24 123/93 91 03/13/19 11:33 03/13/19 11:33 03/13/19 11:33 03/13/19 11:33 03/13/19 11:33 Exam: General appearance: Present: mild distress, A&O X 3 Exam: Head exam: Present: atraumatic, normocephalic Eye exam: Present: PERRL, conjuntiva pink, sclera anicteric Pupils: Present: PERRL Neck exam general surgery: Present: supple, trachea midline. Absent: lymphadenopathy Respiratory exam: Absent: accessory muscle use, rales, rhonchi, wheezes. present: crackles bilateral bases. Cardiovascular exam: Present: irregular rhythm, positive murmur. Absent: diastolic murmur, gallop, RRR, rubs GI/Abdominal exam: Present: normal bowel sounds, soft, no peritoneal signs. Absent: distended, tenderness Extremities exam: Present: pedal edema, warm, radial pulses palpable and symmetrical. Absent: calf tenderness, cyanotic Trace LE edema Neurological exam: Present: CN II-XII intact, oriented X3, no focal deficits. Absent: pronater drift, facial droop, speech deficit Skin exam: Present: dry, intact - Assessment and Plan (1) COPD exacerbation Current Visit: Yes Status: Suspected Assessment and Plan: Changed Duo neb scheduled Q 4hr PRN to Xoponex due to afib RVR and added ipratropium. Will continue steroids therapy. Continue Oxygen supplement. Pulmonology evaluated and agree with pulm that dypsnea primarily related to valvular disease. Appreciate pulm sintia. (2) Atrial fibrillation with RVR Current Visit: No Status: Acute Assessment and Plan: At home on lopressor and warfarin. Was started on amiodarone gtt during the night of 03/10/19 due to Afib RVR and hypotension. Surgery assisting with management of afib. Pt well known to Dr. Llamas. Pt states that Dr. Llamas had referred her to physician at [facility] for further management and she has an appointment for "balloon procedure" next month. Cardiology recommended continue amiodarone gtt, metoprolol, and warfarin for now. Cardiology increased metoprolol from 50 mg PO BID to 75 mg PO BID 03/12/19. Planing to wean off amiodarone. (3) Mitral stenosis Current Visit: Yes Status: Chronic Assessment and Plan: Pt states on admission that Dr. Llamas had reffered her to Dr. Garcia at [facility]. Pt was scheduled for possible "balloon procedure", likely balloon valvuloplasty April 10. Daughter at bedside and states she discussed with Dr. Garcia at [facility], and pt's surgery date has been moved up from April 10 to March 19. Daughter states pt as pre-admission testing scheduled for March 17. Cardiology planing on repeating echocardiogram 03/13/19, once HR < 100. Cardiology recommends giving patient echo results at discharge to take to her appointment at [facility]. See notes under CHF Echo 03/10/19 EV/EV echocardiogram w enhance Impressions: Technically sub-optimal due to clinical status. Atrial fibrillation with RVR. Unable to accurately evaluate LV systolic function due to elevated heart rates. Right ventricular structure and function not well evaluated. Severe bi-atrial enlargement. Aortic valve not well visualized. Mild-moderate aortic stenosis by Doppler. Mitral valve not well visualized. Suboptimal Doppler interrogation due to elevated heart rates. Moderate mitral regurgitation. Moderate tricuspid regurgitation. Severe pulmonary hypertension. Recommend repeat study when heart rates improve. (4) Congestive heart failure due to valvular disease Current Visit: Yes Status: Chronic Assessment and Plan: Given lasix 40 mg IV times one 03/10/19 and pt's Cr bumped from 1.24 to 1.34. However Cr worse today, 1.92 therefore will start back on lasix. Asking nephrology for assistance with YONI. Cardiology on board and repeating echo possibly today 03/13/19 to re-assess mitral regurgitation. States of MR will determine if pt can still proceed with balloon procedure. Cardiology recommends giving patient echo results at discharge to take to her appointment at [facility]. Echo 03/10/19 EV/EV echocardiogram w enhance Impressions: Technically sub-optimal due to clinical status. Atrial fibrillation with RVR. Unable to accurately evaluate LV systolic function due to elevated heart rates. Right ventricular structure and function not well evaluated. Severe bi-atrial enlargement. Aortic valve not well visualized. Mild-moderate aortic stenosis by Doppler. Mitral valve not well visualized. Suboptimal Doppler interrogation due to elevated heart rates. Moderate mitral regurgitation. Moderate tricuspid regurgitation. Severe pulmonary hypertension. Recommend repeat study when heart rates improve. (5) Chronic respiratory failure Current Visit: Yes Status: Acute Assessment and Plan: On 2L NC at home. Continue with oxygen supplement (6) CAD (coronary artery disease) Current Visit: Yes Status: Chronic Assessment and Plan: Aspirin. Pt states she is not on lipid lowering medication but could not say why. (7) Elevated troponin Current Visit: Yes Status: Acute Assessment and Plan: Mild bump in troponin. Pt denies CP. Likely due to Afib RVR and ischemic demand. Cardiology on board (8) Hypertension Current Visit: Yes Status: Chronic Assessment and Plan: On lisinopril and lopressor at home. Holding lisinopril for now. (9) YONI (acute kidney injury) Current Visit: Yes Status: Acute Assessment and Plan: Given lasix 40 mg IV x one 03/09/19 and Cr bumped from 1.24 to 1.34. Held off on lasix on 03/10/19 and ordered repeat CXR. Repeat CXR once again showing pulmonary edema. Cr worse 03/11/19 and up to 1.92. Lasix resumed. Consulted nephrology and appreciate assistance. Holding lisinopril and other nephrotoxic meds. DVT Prophylaxis: Warfarin - Summary of Assessment and Plan Summary of Assessment and Plan: History of present illness: Dr. Victor Ms. Lui is a 78 year old female with past medical history of COPD (non- smokers emphysema), chronic respiratory failure on 2L NC, never smoked, CAD, CHF, HTN, mitral stenosis, afib who presents with worsening SOB. Pt states she has had progressive SOB in last 3 days. States she ot SOB with little activity. Reports having palpitations but denies chest pain. Positive cough but with little yellowish mucous. She denies fever but states she gets chills. Tehn later reported subjective fever and states she took tylenol but did not heck her temp at home. - Time Spent with Patient Total time spent is greater than 50% in coordination of care (as documented) at patient's floor/unit and/or counseling patient: less than 15 minutes Plan of Care Discussed with: patient Internal Medicine: Result - Labs CBC & Chem 7: 03/13/19 04:43 03/13/19 04:43 Labs: Short CBC 03/13/19 Range/Units 04:43 WBC 15.0 H (4.3-11.1) K/mcL Hgb 8.7 L (11.5-15.4) g/dL Hct 28.4 L (35.3-44.9) % Plt Count 340 (140-400) K/mcL Neutrophils # 13.6 H (1.6-8.9) K/mcL BMP 03/13/19 04:43 Sodium 135 L Potassium 4.9 Chloride 100 Carbon Dioxide 23 BUN 77 H Creatinine 2.34 H Glucose 134 H Calcium 9.1 Liver Function 03/13/19 Range/Units 04:43 Albumin 3.5 (3.5-5.7) g/dL - ABG Interpretation ABG results: PT/INR, D-dimer PT 29.3 Seconds (9.4-12.1) H 03/13/19 04:43 - Impressions Impressions Retroperitoneum Ultrasound 03/12/19 21:00 IMPRESSION: No hydronephrosis noted. Debris is seen within the bladder. Recommend correlation with urinalysis D/ / Munir Reyes MD / Munir Reyes MD Interpreting Provider: Munir Reyes MD Consult Discharge Plan - Plan Referrals: Carolin Lopez MD [Primary Care Provider] - 03/20/19 11:45 am (3) Mitral stenosis Qualifiers: Cardiac valve disease etiology: rheumatic Qualified Code(s): I05.0 - Rheumatic mitral stenosis (5) Chronic respiratory failure Qualifiers: Qualified Code(s): J96.10 - Chronic respiratory failure, unspecified whether with hypoxia or hypercapnia (6) CAD (coronary artery disease) Qualifiers: Coronary Disease-Associated Artery/Lesion type: [place] artery [place] vs. transplanted heart: [place] heart Associated angina: without angina Qualified Code(s): I25.10 - Atherosclerotic heart disease of [place] coronary artery without angina pectoris (8) Hypertension Qualifiers: Hypertension type: essential hypertension Qualified Code(s): I10 - Essential (primary) hypertension
[2019-03-13] MEDS ORDERED: Warfarin perPT PO PRN (13:51)
[2019-03-13] MEDS ORDERED: Perflutren Lipid Microsphere 1.3 ML in 0.9 % Sodium Chloride 8.7 ML IVP ONE (15:22)
--- NOTE | 2019-03-13 15:47 | Nephrology Progress Note ---
Date of Encounter: 03/13/19 Time of Encounter: 12:10 - Assessment and Plan (1) YONI (acute kidney injury) Status: Acute Ongoing, worsening YONI: probable multifactorial etiology. With her Afib, CHF and valvular disease, I suspect there is a hemodynamic contribution to the worsening renal function. She may also have cardiorenal syndrome, and if her renal function worsens much more, as I described to her and her daughter, then she may need hemodialysis in the next 24-48 hours. I recommend a CKD workup (stage 2-3a with GFR's just above 60 and sometimes in the upper 50s) as well as acute kidney injury workup, which I have ordered. The retroperitoneal ultrasound returned reassuring. Pending serologies. In the meantime, I recommend following a renal protective strategy: strict I's and O's, daily weights, avoidance of nephrotoxins, a fluid restriction of 1.5 L per day, and renal dosing. My colleague Dr. Marcus will be on service tomorrow Thank you (2) Acute exacerbation of chronic obstructive airways disease Status: Acute (3) Anemia Status: Acute Goal Hgb is 10-11; will monitor Qualifiers: Anemia type: unspecified type Qualified Code(s): D64.9 - Anemia, unspecified (4) Congestive heart failure due to valvular disease Status: Chronic (5) Hypertension Status: Chronic Holding KAREN or ARB Qualifiers: Hypertension type: essential hypertension Qualified Code(s): I10 - Essential (primary) hypertension (6) Atrial fibrillation with RVR Status: Acute Per cardiology Subjective Principal diagnosis: Atrial fib Interval history: Pt was s/e earlier in the day, and she did not affirm N/V/D or other major complaint besides diminished appetite. Objective - Vital Signs Vital signs: Vital Signs Temp Pulse Resp BP Pulse Ox 03/13/19 14:00 99 106/81 03/13/19 13:00 115 108/81 03/13/19 12:00 99 110/84 03/13/19 11:33 98.0 F 105 24 123/93 91 03/13/19 11:09 16 98 03/13/19 11:00 95 123/93 03/13/19 10:00 103 109/82 03/13/19 09:00 111 103/78 03/13/19 08:00 119 105/72 03/13/19 07:05 97.8 F 102 18 114/94 94 03/13/19 04:05 98.0 F 98 20 109/83 99 03/13/19 04:00 16 93 03/13/19 00:17 97.8 F 104 18 100/85 94 03/13/19 00:01 94 03/12/19 22:48 16 98 03/12/19 20:24 97.7 F 114 20 104/87 96 03/12/19 16:18 97.9 F 120 22 110/86 97 Intake and Output 03/12/19 03/13/19 03/13/19 23:59 07:59 15:59 Intake Total 200 / 1130 200 / 680 480 / 680 Output Total 350 / 350 750 / 1000 250 / 1000 Balance -150 / 780 -550 / -320 230 / -320 Intake: IV Fluids 200 / 410 200 / 200 Amiodarone Drip Premix 360mg/ 200 / 400 200 / 200 200mL 360 mg In 200 ml @ 0.5 MG /MIN 16.667 mls/hr IVC CONT YUNI Rx#:[id number] Oral 480 / 480 Output: Urine 350 / 350 750 / 1000 250 / 1000 Other: Meal Lunch Percent of Meal Consumed 100% Weight 100.5 kg Blood Glucose* 119 131 156 Patient Weight 03/13/19 23:59 Weight 100.5 kg - General Appearance Exam: General appearance: well-developed, well-nourished, appears started age, frail EENT: ATNC, PERRL, mucous membranes moist Neck: no JVD Respiratory: course breath sounds, rhonchi Cardiology: edema (trace pretibial pitting edema/bl), irregular rhythm, normal S1, normal S2 Gastrointestinal: normoactive bowel sounds, no tenderness, no guarding, obese Integumentary: warm and dry Neurologic: no focal deficit, no asterixis, alert and oriented x3 Musculoskeletal: no deformities, no erythema, no cyanosis Psychiatric: mood/affect appropriate, cooperative - Lab 03/15/19 09:08 03/15/19 09:08 Most recent lab results 03/13/19 04:43 Calcium 9.1 Phosphorus 5.1 H Consult Discharge Plan - Plan Instructions: Heart Failure (DC), Chronic Obstructive Pulmonary Disease (DC), Chronic Hypertension (DC), Anemia (GEN) Referrals: Carolin Lopez MD [Primary Care Provider] - 03/20/19 11:45 am
[2019-03-13] MEDS: Azithromycin 500 MG in D5% in Water 250 ML IVPB SCH (16:14)
[2019-03-13] MEDS ORDERED: *HR* Warfarin 2.5 MG TABLET PO ONE (18:00)
[2019-03-13] MEDS: Insulin DETEMIR 100 UNIT/ML X5UNITS SQ SCH (21:12)
[2019-03-14 04:58] LABS: Basophils % 0.1 %; Immature Granulocytes % 0.6 % (0-4); Lymphocytes # 0.4 K/mcL (0.6-4.6); Lymphocytes % 2.8 %; Mean Corpuscular Hemoglobin 26.9 pg (28.0-33.3); Mean Corpuscular Volume 86.6 fL (83.0-100.0); Mean Platelet Volume 11.1 fL (9.4-12.4); Monocytes # 0.8 K/mcL (0.0-1.3); Monocytes % 6.1 %; Nucleated Red Blood Cells 1.1 /100 WBC (0); Platelet Count 378 K/mcL (140-400); Red Blood Count 3.35 M/mcL (3.82-4.97); Red Cell Distribution Width 17.1 % (11.5-14.5); Segmented Neutrophils % 90.4 %
[2019-03-14 05:02] LABS: INR 2.6; Prothrombin Time 29.4 Seconds (9.4-12.1)
[2019-03-14] MEDS: Amiodarone Premix 360 MG/200 ML BAG IVC SCH (05:15)
[2019-03-14 05:19] LABS: Albumin 3.6 g/dL (3.5-5.7); Calcium 9.1 mg/dL (8.6-10.3); Phosphorous 5.8 mg/dL (2.7-4.5); Potassium 4.8 mEq/L (3.5-5.1)
[2019-03-14] MEDS: Budesonide/Formoterol 160/4.5 1 PUFF INH IH SCH ×2 (07:56→19:45)
[2019-03-14] MEDS: Aspirin 81 MG TAB.CHEW PO SCH (07:57)
[2019-03-14] MEDS: Loratadine 10 MG TABLET PO SCH (07:57)
[2019-03-14] MEDS: cefTRIAXone 1,000 MG in Water for inj. (sterile) 20 ML 10 ML IVP SCH (07:58)
[2019-03-14] MEDS: Furosemide 40 MG/4 ML VIAL IVP SCH ×2 (07:58→17:11)
[2019-03-14] MEDS: Insulin LISPRO 300 UNITS/3 ML VIAL SQ SCH ×4 (08:01→21:16)
[2019-03-14] MEDS ORDERED: predniSONE 20 MG TABLET PO SCH (09:00)
[2019-03-14] MEDS ORDERED: Ondansetron 4 MG/2 ML VIAL IVP PRN (09:55)
[2019-03-14 10:35] LABS: Thyroid Stimulating Hormone 1.875 mcIU/mL (0.340-5.600)
--- NOTE | 2019-03-14 11:37 | Internal Med Progress Note ---
Hospitalist Progress Note - Encounter Date of Encounter: 03/14/19 Time of Encounter: 11:31 - Subjective Interval History: Patient was seen and examined. No acute events overnight. Admitted with shortness of breath. Has chronic respiratory failure on supplemental oxygen at home. Was found to have COPD exacerbation and put on IV steroids and nebulizer s. Went into atrial fibrillation with RVR. Patient is on Coumadin and has a history of mitral stenosis with plans for balloon dilation at [facility] this month. Patient is on Coumadin. Was started on amiodarone drip as Lopressor Cardizem could not be given due to low blood pressure. Cardiology is following. Also noted to have some volume overload issues and was started on diuresis. Kidney function has worsened while here and nephrology is following. - Exam Vitals: Temp Pulse Resp BP Pulse Ox 98.0 F 10 18 114/96 98 03/14/19 11:07 03/14/19 11:07 03/14/19 11:07 03/14/19 11:07 03/14/19 11:07 Exam: IGEN: NAD CVS: RRR. S1, S2, No m/r/g RESP: CTAB ABD: Soft, NT, ND, +BS EXT: No edema. 2+ DP. No rashes NEURO: Nonfocal - Assessment and Plan (1) Atrial fibrillation with RVR Current Visit: No Status: Acute Assessment and Plan: Continue amiodarone as well as metoprolol oral per cardiology. Plans for future mitral stenosis procedure at [facility]. Plan for this month. Continue Coumadin per pharmacy. (2) Congestive heart failure due to valvular disease Current Visit: Yes Status: Chronic Assessment and Plan: Acute exacerbation of diastolic heart failure. Being diuresed with IV Lasix 40 mg twice a day. Kidney function continues to worsen. We will have to discuss with nephrology and cardiology about holding it. Monitor I&O's. Limited echo results noted. EF 50% to 55% (3) Acute exacerbation of congestive heart failure Current Visit: Yes Status: Acute Assessment and Plan: Plan as above. (4) Hypertension Current Visit: Yes Status: Chronic Assessment and Plan: Blood pressure better. Continue with Lopressor. (5) Mitral stenosis Current Visit: Yes Status: Chronic Assessment and Plan: Plans for balloon procedure and [facility] later this month (6) COPD exacerbation Current Visit: Yes Status: Acute Assessment and Plan: Continue O2 support. Continue prednisone and wean down to 30 mg starting tomorrow. Continue nebs (7) CAD (coronary artery disease) Current Visit: Yes Status: Chronic Assessment and Plan: Continue home meds (8) Elevated troponin Current Visit: Yes Status: Acute Assessment and Plan: Mild bump in troponin. Pt denies CP. Likely due to Afib RVR and ischemic demand. Cardiology on board (9) YONI (acute kidney injury) Current Visit: Yes Status: Acute Assessment and Plan: Initially Lasix was held and kidney function continued to worsen and was believed that there is some cardiorenal component to this elevation of kidney function. After that Lasix has been resumed by kidney function continues to worsen. Renal ultrasound results noted. Nephrology is following. Continue to monitor. (10) Chronic respiratory failure Current Visit: Yes Status: Acute Assessment and Plan: On 2L NC at home. Continue with oxygen supplement (11) DVT prophylaxis Current Visit: No Status: Acute Assessment and Plan: On Coumadin - Time Spent with Patient Total time spent is greater than 50% in coordination of care (as documented) at patient's floor/unit and/or counseling patient: Internal Medicine: Result - Labs CBC & Chem 7: 03/14/19 04:10 03/14/19 04:10 Labs: Short CBC 03/14/19 Range/Units 04:10 WBC 13.3 H (4.3-11.1) K/mcL Hgb 9.0 L (11.5-15.4) g/dL Hct 29.0 L (35.3-44.9) % Plt Count 378 (140-400) K/mcL Neutrophils # 12.0 H (1.6-8.9) K/mcL BMP 03/14/19 04:10 Sodium 136 Potassium 4.8 Chloride 100 Carbon Dioxide 25 BUN 88 H Creatinine 2.40 H Glucose 132 H Calcium 9.1 Liver Function 03/14/19 Range/Units 04:10 Albumin 3.6 (3.5-5.7) g/dL - ABG Interpretation ABG results: PT/INR, D-dimer PT 29.4 Seconds (9.4-12.1) H 03/14/19 04:10 Consult Discharge Plan - Plan Referrals: Carolin Lopez MD [Primary Care Provider] - 03/20/19 11:45 am __ (3) Acute exacerbation of congestive heart failure Qualifiers: Heart failure type: diastolic Qualified Code(s): I50.33 - Acute on chronic diastolic (congestive) heart failure (4) Hypertension Qualifiers: Hypertension type: essential hypertension Qualified Code(s): I10 - Essential (primary) hypertension (5) Mitral stenosis Qualifiers: 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 transplanted heart: [place] heart Associated angina: without angina Qualified Code(s): I25.10 - Atherosclerotic heart disease of [place] coronary artery without angina pectoris (10) Chronic respiratory failure Qualifiers: Qualified Code(s): J96.10 - Chronic respiratory failure, unspecified whether with hypoxia or hypercapnia
--- NOTE | 2019-03-14 11:48 | Cardiology Progress Note ---
<Carolin Serrano - Last Filed: 03/14/19 11:59> Date of Encounter: 03/14/19 Time of Encounter: 11:45 Assessment and Plan (1) Atrial fibrillation with RVR Current Visit: No Status: Acute HR continues to slowly improve- avg hr overnight of 103 Admits to palpitations when up and moving around BP has improved as well Will discontinue amiodarone drip and increase metoprolol to 100 mg BID Records from anticoagulation clinic for INRs over past 4 weeks have been requested Warfarin being held at request of surgeon at [facility] (2) Congestive heart failure due to valvular disease Current Visit: Yes Status: Chronic Continue respiratory support Lasix as tolerated by renal function- renal function appears to have stabilized Currently +1.983 L Fluid restriction to 1.5 L per day Continuous cardiac monitoring Echo- Technically challenging exam. Atrial fibrillation, heart rate 90-120's. LV systolic function grossly appear low normal, EF 50-55%. Definity echo contrast was used. Right ventricle is dilated. Systolic function grossly appears low normal. Mitral valve is not well visualized. Mild to moderate mitral regurgitation by Spectral Doppler. Color-flow imaging not well visualized. (3) Mitral stenosis Current Visit: Yes Status: Chronic History of severe mitral stenosis with plan for balloon valvuloplasty at [facility] on 03/19/19 Warfarin being held in anticipation of balloon valvuloplasty at request of surgeon Echo- mild to moderate mitral regurgitation Qualifiers: Cardiac valve disease etiology: rheumatic Qualified Code(s): I05.0 - Rheumatic mitral stenosis (4) CAD (coronary artery disease) Current Visit: Yes Status: Chronic Patient has a history of CAD Troponin mildly elevated at 0.04, 0.03 however suspect this is secondary to demand ischemia, respiratory failure and afib RVR Continue home medication aspirin Qualifiers: Coronary Disease-Associated Artery/Lesion type: [place] artery [place] vs. transplanted heart: [place] heart Associated angina: without angina Qualified Code(s): I25.10 - Atherosclerotic heart disease of [place] coronary artery without angina pectoris (5) COPD exacerbation Current Visit: Yes Status: Acute Patient presented with progressive shortness of breath CXR showed pulmonary edema, greater on left with pulmonary vascular congestion with cardio-pericardial [place] enlarged but stable Continue oxygen supplementation, steroids, azithromycin, ipatropium, tessalon and guafenesin Respiratory support as needed (6) Acute kidney injury superimposed on CKD Current Visit: Yes Status: Acute Patient found to have YONI on CKD- appears to have stabilized Baseline GFR in the 50's Cr currently 2.4, BUN currently 88 Continue to avoid nephrotoxic agents and renally dose medications (7) Hypertension Current Visit: Yes Status: Chronic Home medication lisinopril being held secondary to YONI Metoprolol to be increased to 100 mg BID Qualifiers: Hypertension type: essential hypertension Qualified Code(s): I10 - Essential (primary) hypertension (8) DVT prophylaxis Current Visit: No Status: Acute Warfarin being held in anticipation of balloon valvuloplasty Discussion w patient/family: The assessment and plan as outlined above was discussed with the patient and/or family members who expressed understanding and agreement. All questions were a nswered. Thank you for involving us in the care of your patient. Please call with any questions. Subjective Principal diagnosis: Atrial fib Interval history: Patient seen and examined at bedside today. She states that shortness of breath is improved, she admits to palpitations when she is up and moving. She continues to have dry cough as well. Echo has come back with mild to moderate mitral regurgitation. She continues to be in contact with surgeon at [facility] who will perform MANUEL prior to balloon valvuloplasty. Records from anticoagulation clinic have been requested. Will discontinue amiodarone drip and increase metoprolol to 100 mg BID now that blood pressures have stabilized. Objective Vital Signs, Last 4 Hours Temp Pulse Resp BP Pulse Ox 03/14/19 11:07 98.0 F 10 18 114/96 98 03/14/19 09:00 97 19 116/87 95 03/14/19 08:00 94 18 125/77 95 03/14/19 07:57 18 95 General: Conversant, No Apparent Distress HEENT: Atraumatic, Normocephaly, Mucus Membranes Moist Neck: No JVD, Normal carotid pulses Cardiac: Reg Rate and Rhythm, Normal S1 and S2, Other (diastolic murmur) Lungs: Normal Breath Sounds, No Wheeze, Rales, Rhonchi Neuro: Alert and responsive, No focal deficits noted Abdomen: Soft, Non-Tender Skin: No rashes noted on visualized skin Musculoskeletal: No Chest Wall Tenderness Extremities: No Clubbing, No Cyanosis, Normal Pulses, Other (1+ LE edema) Results 03/14/19 04:10 03/14/19 04:10 Lab Results 03/14/19 03/14/19 03/14/19 04:10 04:10 04:10 WBC 13.3 H Hgb 9.0 L Hct 29.0 L Plt Count 378 INR 2.6 Sodium 136 Potassium 4.8 Chloride 100 Carbon Dioxide 25 BUN 88 H Creatinine 2.40 H Glucose 132 H Calcium 9.1 TSH 1.875 Consult Discharge Plan - Plan Referrals: Carolin Lopez MD [Primary Care Provider] - 03/20/19 11:45 am <AyadRickshayna - Last Filed: 03/14/19 13:59> Date of Encounter: 03/14/19 Assessment and Plan Discussion w patient/family: The assessment and plan as outlined above was discussed with the patient and/or family members who expressed understanding and agreement. All questions were answered. Thank you for involving us in the care of your patient. Please call with any questions. Objective Vital Signs, Last 4 Hours Temp Pulse Resp BP Pulse Ox 03/14/19 12:00 90 03/14/19 11:07 98.0 F 10 18 114/96 98 Results 03/14/19 04:10 03/14/19 04:10 Lab Results 03/14/19 03/14/19 03/14/19 04:10 04:10 04:10 WBC 13.3 H Hgb 9.0 L Hct 29.0 L Plt Count 378 INR 2.6 Sodium 136 Potassium 4.8 Chloride 100 Carbon Dioxide 25 BUN 88 H Creatinine 2.40 H Glucose 132 H Calcium 9.1 TSH 1.875 - Attending Attestation Patient was seen and evaluated independently by me. Findings, assessment and plan were discussed in detail with patient, questions answered. Agree with resident's documentation. Addition as follows, Pt feels dyspnea significantly better c/w admission. VR averaging 100s, BP 110s-120s/70s-80s, Cr plateau at 2.3 NC O2 1.5L, CTA, no W/R/C, IR, B/L LE edema to lower shins. Repeated TTE after rate ctr EF 50-55%, MS MVA 1.2-1.8 on PHT, MG 9mmHg, mild MR. A: AFib RVR, rate ctr ok now, INR now therapeutic, unclear INR detail past 3-4 wks Moderate to severe MS with mild MR, plan for MANUEL followed by mitral commissurotomy early next wk at [facility] Mild ADHF, now mild fluid overload Recurrent COPD exacerbation, last episode 1 month ago, on pred taper YONI Moderate anemia, Hb stable 9 P: d/c amio drip up metoprolol to 100 bid request INR record in the past 4 wks has appt for Sumeet Lion MD, PhD
[2019-03-14] MEDS: Insulin DETEMIR 100 UNIT/ML X5UNITS SQ SCH (21:16)
--- NOTE | 2019-03-14 21:28 | Nephrology Progress Note ---
Date of Encounter: 03/14/19 Time of Encounter: 15:00 - Assessment and Plan (1) YONI (acute kidney injury) Current Visit: Yes Status: Acute Scr continues to worse at 2.4, GFR 19 likely due to diuresis Would recommend decreasing lasix from 40mg bid to 20mg bid Will add albumin to regimen Continue to avoid nephrotoxins if possible UOP noted at 1700cc in the past 24hrs which is very good US of kidney mostly unremarkable except for some size asymmetry with R>L (2) Congestive heart failure due to valvular disease Current Visit: Yes Status: Chronic As above, continue fluid restriction Continue strict I/Os (3) Anemia Current Visit: Yes Status: Acute Hgb noted fairly stable at 9, will monitor Transfusion parameters per primary team Qualifiers: Anemia type: unspecified type Qualified Code(s): D64.9 - Anemia, unspecified (4) Atrial fibrillation with RVR Current Visit: No Status: Acute Per cardiology (5) Hypertension Current Visit: Yes Status: Chronic Qualifiers: Hypertension type: essential hypertension Qualified Code(s): I10 - Essential (primary) hypertension (6) Acute exacerbation of chronic obstructive airways disease Current Visit: Yes Status: Acute Subjective Principal diagnosis: Atrial fib Interval history: Interim events noted, pt seen and examined reports improvement in SOB. Daughter at bedside. Objective - Vital Signs Vital signs: Vital Signs Temp Pulse Resp BP Pulse Ox 03/14/19 19:46 18 94 03/14/19 19:38 97.6 F 103 20 97/74 94 03/14/19 17:00 112/80 03/14/19 15:00 97.8 F 90 20 95/72 95 03/14/19 12:00 90 03/14/19 11:07 98.0 F 10 18 114/96 98 03/14/19 09:00 97 19 116/87 95 03/14/19 08:00 94 18 125/77 95 03/14/19 07:57 18 95 03/14/19 07:14 98.1 F 109 18 110/97 94 03/14/19 04:20 98.3 F 89 16 130/93 96 03/14/19 03:00 95 98/87 03/14/19 01:19 105/76 96 03/14/19 00:52 98.1 F 102 14 105/77 95 03/13/19 22:18 18 96 03/13/19 22:00 107 101/82 Intake and Output 03/14/19 03/14/19 03/14/19 07:59 15:59 23:59 Intake Total 440 / 841.6 401.6 / 841.6 Output Total 500 / 1950 900 / 1950 550 / 1950 Balance -60 / -1108.4 -498.4 / -1108.4 -550 / -1108.4 Intake: IV Fluids 200 / 301.6 101.6 / 301.6 Amiodarone Drip Premix 360mg/ 200 / 291.6 91.6 / 291.6 200mL 360 mg In 200 ml @ 0.5 MG /MIN 16.667 mls/hr IVC CONT YUNI Rx#:[id number] Rocephin 1,000 MG In Water for inj. (sterile) 10 ML @ 600 mls/ hr IVP DAILY YUNI Rx#:[id number] Oral 240 / 540 300 / 540 Output: Urine 500 / 1950 900 / 1950 550 / 1950 Other: Meal Lunch Percent of Meal Consumed 45% Stool Size Moderate Stool Consistency liquid Stool Color Green # Bowel Movements 1 Weight 97.6 kg Blood Glucose* 124 107 Patient Weight 03/14/19 23:59 Weight 97.6 kg - General Appearance General appearance: Present: well-developed, well-nourished EENT: Present: ATNC, mucous membranes moist Neck: Present: no JVD, supple Additional Comments: good areation ant bilat Cardiology: Present: edema (trace LE bilat with varicose veins), irregular rhythm, normal S1, normal S2 Gastrointestinal: Present: no tenderness, no guarding Integumentary: Present: warm and dry Neurologic: Present: no focal deficit Musculoskeletal: Present: no deformities Psychiatric: Present: mood/affect appropriate, cooperative - Lab 03/14/19 04:10 03/14/19 04:10 Most recent lab results 03/14/19 04:10 Calcium 9.1 Phosphorus 5.8 H Consult Discharge Plan - Plan Referrals: Carolin Lopez MD [Primary Care Provider] - 03/20/19 11:45 am
[2019-03-14] MEDS: Albumin 25% 25gram/100mL 25 GM/100 ML IV.SOLN IVPB SCH (22:22)
[2019-03-15] MEDS: Budesonide/Formoterol 160/4.5 1 PUFF INH IH SCH (07:54)
[2019-03-15] MEDS: Insulin LISPRO 300 UNITS/3 ML VIAL SQ SCH ×2 (07:58→11:49)
[2019-03-15] MEDS: Aspirin 81 MG TAB.CHEW PO SCH (07:59)
[2019-03-15] MEDS: Loratadine 10 MG TABLET PO SCH (08:01)
[2019-03-15] MEDS: Furosemide 40 MG/4 ML VIAL IVP SCH (08:01)
[2019-03-15] MEDS ORDERED: predniSONE 20 MG TABLET PO SCH (09:00)
--- NOTE | 2019-03-15 09:10 | Discharge Summary ---
Orders not resulted at time of discharge: Pending orders 03/10/19 14:47 Culture,Blood [BC] Stat 03/11/19 00:37 ECG 12 lead ECG [ECG] Stat 03/12/19 19:03 YAN IgG MARNI rflx IFA Routine Immunoelectrophoresis Routine [place] Lambda Qnt FLC w Ratio Routine MPO/PR3 (ANCA) Antibodies Routine 03/15/19 08:55 BMP [Basic Metabolic Panel] Stat Complete Blood Count [HEME] Stat Magnesium Stat PT/INR [Prothrombin Time INR] [COAG] Stat 03/16/19 04:00 BMP [Basic Metabolic Panel] AM 0400 Complete Blood Count [HEME] AM 0400 Magnesium AM 0400 Date of Encounter: 03/15/19 Time of Encounter: 09:08 - Discharge Diagnosis (1) Atrial fibrillation with RVR Priority: Primary Status: Acute (2) Congestive heart failure due to valvular disease Priority: Primary Status: Chronic (3) Acute exacerbation of congestive heart failure Priority: Primary Status: Acute Qualifiers: Heart failure type: diastolic Qualified Code(s): I50.33 - Acute on chronic diastolic (congestive) heart failure (4) Hypertension Priority: Secondary Status: Chronic Qualifiers: Hypertension type: essential hypertension Qualified Code(s): I10 - Essential (primary) hypertension (5) Mitral stenosis Priority: Secondary Status: Chronic Qualifiers: Cardiac valve disease etiology: rheumatic Qualified Code(s): I05.0 - Rheumatic mitral stenosis (6) COPD exacerbation Priority: Primary Status: Acute (7) CAD (coronary artery disease) Priority: Secondary Status: Chronic Qualifiers: Coronary Disease-Associated Artery/Lesion type: [place] artery [place] vs. transplanted heart: [place] heart Associated angina: without angina Qualified Code(s): I25.10 - Atherosclerotic heart disease of [place] coronary artery without angina pectoris (8) Elevated troponin Priority: Primary Status: Acute (9) YONI (acute kidney injury) Priority: Primary Status: Acute (10) Chronic respiratory failure Priority: Secondary Status: Acute Qualifiers: Qualified Code(s): J96.10 - Chronic respiratory failure, unspecified whether with hypoxia or hypercapnia Hospital course: Ms. Lui is a 79 year old female past medical history of COPD (non-smokers emphysema), chronic respiratory failure on 2L NC, CAD, CHF, HTN, mitral stenosis, afib who presents with worsening SOB. Was treated for CHF exacerbation and COPD exacerbation. Was able to get weaned down to 2L on day of discharge. We had issues with worsening OYNI while diureses and diureses was held. She is still edematous. She went into afib with RVR as well. Cardiology were involved and put her on amiodarone drip but had issues with dizziness and that was stopped. Beta radha was increased. was maintained on Coumadin while here with therpeutic INR. She has a planned [place] valvuloplasty on 03/19 at [facility] and she requested to be transferred there if there is no plans for discharge soon. I do not anticipate discharge in the next couple of days as she is having significant YONI and still short of breath and edematous. She also still gets periods of Afib with RVR. The forestry professor here do agree that working on her Mitral stenosis would help her senior care Afib and volume status. She is being transferred to [facility] and accepted by the forestry professor there on 03/15/2019. We started holding Coumadin on 03/14/2019. - Time Spent with Patient Total time spent providing and/or coordinating discharge services: Time spent: Greater than 30 minutes - Discharge Medications Prescriptions: New Metoprolol [Lopressor] 100 mg PO BID tablet Insulin DETEMIR [Levemir] 5 unit SQ HS [id number] predniSONE [PredniSONE] 30 mg PO DAILY tablet Continued Loratadine [Claritin] 10 mg PO DAILY Oxygen 2 l NS AD Potassium Chloride [K-Tab ER] 10 meq PO DAILY Fluticasone Propionate Nasal [Flonase] 1 spray NS 2-3XD PRN PRN Reason: Nasal Congestion Albuterol Sulfate [Proair Hfa] 2 puff IH Q4H PRN PRN Reason: Shortness Of Breath Albuterol Neb [Proventil Neb] 2.5 mg IH Q4H PRN PRN Reason: Shortness Of Breath Aspirin 81 mg PO DAILY Warfarin [Coumadin] 5 mg PO MOWEFR Warfarin [Coumadin] 2.5 mg PO SUTUTHSA Furosemide [Lasix] 40 mg PO DAILY #0 Guaifenesin [Mucinex] 600 mg PO BID PRN PRN Reason: Cough Budesonide/Formoterol 160/4.5 [Symbicort 160/4.5] 2 puff IH BIDR Lisinopril [Zestril] 10 mg PO DAILY Discontinued Metoprolol [Lopressor] 50 mg PO BID Home Medications: Albuterol Neb [Proventil Neb] 2.5 mg IH Q4H PRN 08/05/16 [History] Albuterol Sulfate [Proair Hfa] 2 puff IH Q4H PRN 08/05/16 [History] Fluticasone Propionate Nasal [Flonase] 1 spray NS 2-3XD PRN 08/05/16 [History] Loratadine [Claritin] 10 mg PO DAILY 08/05/16 [History] Oxygen 2 l NS AD 08/05/16 [History] Potassium Chloride [K-Tab ER] 10 meq PO DAILY 08/05/16 [History] Aspirin 81 mg PO DAILY 10/10/16 [History] Warfarin [Coumadin] 5 mg PO MOWEFR 10/10/16 [History] Warfarin [Coumadin] 2.5 mg PO SUTUTHSA 09/25/17 [History] Furosemide [Lasix] 40 mg PO DAILY #0 09/28/17 [Rx] Budesonide/Formoterol 160/4.5 [Symbicort 160/4.5] 2 puff IH BIDR 03/10/19 [History] Guaifenesin [Mucinex] 600 mg PO BID PRN 03/10/19 [History] Lisinopril [Zestril] 10 mg PO DAILY 03/10/19 [History] Insulin DETEMIR [Levemir] 5 unit SQ HS [id number] 03/15/19 [Rx] Metoprolol [Lopressor] 100 mg PO BID tablet 03/15/19 [Rx] predniSONE [PredniSONE] 30 mg PO DAILY tablet 03/15/19 [Rx] Allergies/Adverse Reactions: Allergy/AdvReac Type Severity Reaction Status Date / Time Cefaclor [From [facility]] Allergy Difficulty Verified 03/10/19 20:19 Breathing cephalexin Allergy Difficulty Verified 03/10/19 20:19 Breathing doxycycline Allergy Anaphylaxis Verified 03/10/19 20:19 Penicillins Allergy Hives Verified 03/10/19 20:19 Sulfa (Sulfonamide Allergy Anaphylaxis Verified 03/10/19 20:19 Antibiotics) Date of admission: 03/10/19 18:52 Primary care physician: Carolin Lopez MD Consults: 03/10/19 18:48 Consult to Nurse Navigator [CONS] Routine Comment: 03/10/19 21:19 Consult to Pastoral Services [CONS] Routine Comment: 03/11/19 14:14 Consult to Cardiology [CONS] Routine Comment: Consulting Provider: Cardiology [place] Reason for Consult: Afib RVR in presence of hypotension. Hx afib Call Completed: Yes 03/11/19 14:25 Consult to Pulmonology [CONS] Routine Consulting Provider: [facility] [place] Reason for Consult: acute excaerbation COPD Call Completed: Yes 03/12/19 09:32 Consult to Nephrology [CONS] Routine Consulting Provider: Kidney Simin/DOMI/AKUA/PRO Reason for Consult: yoni/ckd Call Completed: Yes - Constitutional Vitals: Temp Pulse Resp BP Pulse Ox 97.6 F 84 20 108/69 97 03/15/19 07:28 03/15/19 08:11 03/15/19 07:54 03/15/19 07:28 03/15/19 07:54 General appearance: Present: mild distress, A&O X 3 Exam: GEN: NAD CVS: Irregular, S1, S2, No m/r/g RESP: CTAB ABD: Soft, NT, ND, +BS EXT: 1+ edema. 2+ DP. No rashes NEURO: Nonfocal - Patient Status Disposition: Transfer Critical Access Hosp Condition: Good Overall status at discharge: patient is progressing back to baseline - Discharge Instructions Follow Up With: Carolin Lopez MD [Primary Care Provider] - 03/20/19 11:45 am - Diet and Activity Activity: increase activity as tolerated Diet: diabetic diet, low salt diet
[2019-03-15] MEDS: Albumin 25% 25gram/100mL 25 GM/100 ML IV.SOLN IVPB SCH (09:20)
[2019-03-15 09:29] LABS: Basophils % 0.1 %; Eosinophils % 0.2 %; Hematocrit 30.5 % (35.3-44.9); Hemoglobin 9.2 g/dL (11.5-15.4); Immature Granulocytes % 0.8 % (0-4); Lymphocytes # 0.9 K/mcL (0.6-4.6); Lymphocytes % 7.5 %; Mean Corpuscular HGB Conc 30.2 g/dL (31.6-35.5); Mean Corpuscular Hemoglobin 26.2 pg (28.0-33.3); Mean Corpuscular Volume 86.9 fL (83.0-100.0); Monocytes # 1.3 K/mcL (0.0-1.3); Monocytes % 10.6 %; Neutrophils # 9.7 K/mcL (1.6-8.9); Nucleated Red Blood Cells 1.3 /100 WBC (0); Platelet Count 397 K/mcL (140-400); Red Blood Count 3.51 M/mcL (3.82-4.97); Red Cell Distribution Width 16.9 % (11.5-14.5); Segmented Neutrophils % 80.8 %
[2019-03-15 09:35] LABS: INR 2.3; Prothrombin Time 26.2 Seconds (9.4-12.1)
--- NOTE | 2019-03-15 09:36 | Cardiology Progress Note ---
Date of Encounter: 03/15/19 Time of Encounter: 09:34 Assessment and Plan (1) Atrial fibrillation with RVR Current Visit: No Status: Acute Presents with atrial fibrillation with RVR in the setting of COPD and CHF exacerbation. Known severe MS. HR now improved. AVg HR 87 bpm over last 12 hours. HR continues to slowly improve- avg hr overnight of 103 Initially treated with amiodarone and now on metoprolol 100 mg BID. Amio d/c'd. Warfarin being held at request of surgeon at [facility]. INR 2.6 today. (2) Mitral stenosis Current Visit: Yes Status: Chronic History of severe mitral stenosis with plan for balloon valvuloplasty at [facility] on 03/19/19 Warfarin being held in anticipation of balloon valvuloplasty at request of surgeon Echo here- mild to moderate mitral regurgitation, mitral valve was not well visualized. Qualifiers: Cardiac valve disease etiology: rheumatic Qualified Code(s): I05.0 - Rheumatic mitral stenosis (3) COPD exacerbation Current Visit: Yes Status: Acute Patient presented with progressive shortness of breath CXR showed pulmonary edema, greater on left with pulmonary vascular congestion with cardio-pericardial silouette enlarged but stable Management per rpimary team. Improved. (4) CAD (coronary artery disease) Current Visit: Yes Status: Chronic Patient has a history of CAD Troponin mildly elevated at 0.04, 0.03 however suspect this is secondary to de linda ischemia, respiratory failure and afib RVR Continue home medication aspirin Qualifiers: Coronary Disease-Associated Artery/Lesion type: [place] artery [place] vs. transplanted heart: [place] heart Associated angina: without angina Qualified Code(s): I25.10 - Atherosclerotic heart disease of [place] coronary artery without angina pectoris (5) Acute diastolic (congestive) heart failure Current Visit: No Status: Acute CHF due to severe valvular disease. Suspect patient is now dry with worsening SCr. Would transition to home med. Nephrology following. Strict I&O and daily weights. Discussion w patient/family: The assessment and plan as outlined above was discussed with the patient and/or family members who expressed understanding and agreement. All questions were answered. Thank you for involving us in the care of your patient. Please call with any questions. Subjective Principal diagnosis: Atrial fib Interval history: HR controlled this morning. States breathing is near baseline. Objective Vital Signs, Last 4 Hours Temp Pulse Resp BP Pulse Ox 03/15/19 08:11 84 03/15/19 07:54 20 97 03/15/19 07:28 97.6 F 77 19 108/69 97 General: Conversant, No Apparent Distress HEENT: Atraumatic, Normocephaly, Mucus Membranes Moist Neck: No JVD, Normal carotid pulses Cardiac: Other (Irregular) Lungs: Normal Breath Sounds, No Wheeze, Rales, Rhonchi Neuro: Alert and responsive, No focal deficits noted Abdomen: Soft, Non-Tender Skin: No rashes noted on visualized skin Musculoskeletal: No Chest Wall Tenderness Extremities: No Clubbing, No Cyanosis, No Edema, Normal Pulses Results 03/15/19 09:08 03/15/19 09:08 Lab Results 03/14/19 03/15/19 04:10 09:08 WBC 11.9 H Hgb 9.2 L Hct 30.5 L Plt Count 397 Sodium 136 Potassium 4.8 Chloride 100 Carbon Dioxide 25 BUN 88 H Creatinine 2.40 H Glucose 132 H Calcium 9.1 TSH 1.875 Consult Discharge Plan - Plan Referrals: Carolin Lopez MD [Primary Care Provider] - 03/20/19 11:45 am
[2019-03-15 09:49] LABS: Calcium 8.9 mg/dL (8.6-10.3); Magnesium 2.5 mg/dL (1.6-2.6); Potassium 3.9 mEq/L (3.5-5.1)
[2019-03-15 10:19] LABS: ANA IgG by ELISA NONE DETECTED (None Detected); Myeloperoxidase Ab 0 AU/mL (0-19); Serine Protease-3 Antibody 0 AU/mL (0-19)
[2019-03-15 11:26] VITALS: BP 102/68
--- NOTE | 2019-03-15 12:02 | Nephrology Progress Note ---
Date of Encounter: 03/15/19 Time of Encounter: 12:00 - Assessment and Plan (1) YONI (acute kidney injury) Current Visit: Yes Status: Acute Scr slightly better at 2.2, GFR 21 after receiving albumin Would recommend decreasing lasix from 40mg bid to 20mg bid but will defer to [facility] on transfer Continue to avoid nephrotoxins if possible UOP noted at 1950cc in the past 24hrs which is very good and 1600cc s far today US of kidney mostly unremarkable except for some size asymmetry with R>L (2) Congestive heart failure due to valvular disease Current Visit: Yes Status: Chronic (3) Anemia Current Visit: Yes Status: Acute Qualifiers: Anemia type: unspecified type Qualified Code(s): D64.9 - Anemia, unspecified (4) Atrial fibrillation with RVR Current Visit: No Status: Acute (5) Hypertension Current Visit: Yes Status: Chronic Qualifiers: Hypertension type: essential hypertension Qualified Code(s): I10 - Essential (primary) hypertension (6) Acute exacerbation of chronic obstructive airways disease Current Visit: Yes Status: Acute Subjective Principal diagnosis: Atrial fib Interval history: Interim noted with transfer to [facility] today, pt seen and examined Objective - Vital Signs Vital signs: Vital Signs Temp Pulse Resp BP Pulse Ox 03/15/19 11:22 97.6 F 82 18 102/68 95 03/15/19 08:11 84 03/15/19 07:54 20 97 03/15/19 07:28 97.6 F 77 19 108/69 97 03/15/19 03:07 97.9 F 82 22 110/65 96 03/14/19 23:46 97.9 F 87 24 102/69 97 03/14/19 19:46 18 94 03/14/19 19:38 97.6 F 103 20 97/74 94 03/14/19 17:00 112/80 03/14/19 15:00 97.8 F 90 20 95/72 95 Intake and Output 03/14/19 03/15/19 03/15/19 23:59 07:59 15:59 Intake Total 100 / 340 240 / 340 Output Total 550 / 1950 700 / 1600 900 / 1600 Balance -550 / -1008.4 -600 / -1260 -660 / -1260 Intake: IV Fluids 100 / 100 Flexbumin 25 gm In 100 ml @ 60 100 / 100 mls/hr IVPB Q12H [facility] Rx#: [id number] Oral 240 / 240 Output: Urine 550 / 1950 700 / 1600 900 / 1600 Other: Meal Breakfast Percent of Meal Consumed 50% Weight 96.4 kg 92.3 kg Blood Glucose* 107 89 93 Patient Weight 03/15/19 23:59 Weight 92.3 kg - Lab 03/15/19 09:08 03/15/19 09:08 Most recent lab results 03/15/19 09:08 Calcium 8.9 Magnesium 2.5 Consult Discharge Plan - Plan Referrals: Carolin Lopez MD [Primary Care Provider] - 03/20/19 11:45 am
[2019-03-15] MEDS ORDERED: Furosemide 20 MG/2 ML VIAL IVP SCH (17:00)
[2019-03-15 21:56] LABS: Kappa Qnt Free Light Chains 2.51 mg/dL (0.33-1.94); Lambda Qnt Free Light Chains 0.58 mg/dL (0.57-2.63)
[2019-03-16 07:58] LABS: Alpha 2 Globulin (PEP) 1.75 g/dL (0.48-1.05); Beta Globulin (PEP) 0.78 g/dL (0.48-1.10)
[2019-03-16] MEDS ORDERED: Furosemide 40 MG TABLET PO SCH (09:00)
[2019-03-17 08:34] LABS: IFE Reflexed IFE Done; Immunoglobulin A 212 mg/dL (68-408); Immunoglobulin G 750 mg/dL (768-1632); Immunoglobulin M 16 mg/dL (35-263)
== END 2019-03-15 14:35 | disposition critical access hospital (66) | DRG 291 ==
LOC: EMEROOARM 13:54 → 2NENU 13:54 → SUATTDRO 18:52 → 2NENU 20:15 → 2NNU 03-11 01:16
PROVIDERS: ADMIT Student in an Organized Health Care Education/Training Program; ATTEND Internal Medicine